=== PATIENT | male | born 1935 | race Caucasian/White ===

== ENCOUNTER → 2016-07-25 | Outpatient (CLI) | payer BC ==
[~2016-07-25] MED LIST: ALL300 PO; METO100T44 PO; OMEG10007 PO; SYN100 PO; [UNRECOGNIZED DRUG - OTHER]
[2016-07-25 12:31] LABS: BASO % 0.5 %; BASO ABS # 0.03 K/uL (0-0.2); COMPLETE YES; HEMATOCRIT 39.9 % (42-52); IG% 0.2 %; LYMPH % 32.2 %; LYMPH ABS # 1.96 K/uL (1.2-3.4); MEAN CELL VOLUME 101.3 fL (80-100); MEAN CORPUSCULAR HGB CONC 32.6 g/dl (32-36); MEAN PLATELET VOLUME 9.8 fL (7.4-10.4); MONO % 6.1 %; PLATELET COUNT 212 K/uL (130-400); RED BLOOD COUNT 3.94 M/uL (4.7-6.1); WHITE BLOOD COUNT 6.09 K/uL (4.8-10.8)
[2016-07-25 13:24] LABS: BLOOD UREA NITROGEN 15 mg/dl (7-18); BUN/CREATININE RATIO 17.3 (10-20); CALCIUM 8.7 mg/dl (8.5-10.1); CARBON DIOXIDE 23 mmol/L (21-32); CHLORIDE 108 mmol/L (98-107); CREATININE 0.89 mg/dl (0.60-1.40); GLUCOSE 136 mg/dl (70-99); POTASSIUM 4.2 mmol/L (3.5-5.1); SODIUM 140 mmol/L (136-145)
[2016-07-25 13:35] LABS: THYROID STIMULATING HORMONE 0.768 uIu/ml (0.300-4.500)
--- NOTE | 2016-08-01 06:58 | CODING QUERY MEDICAL NECESSITY ---
SUPPORTING DIAGNOSIS NEEDED A supporting diagnosis is required for the test/procedure performed on this patient in order for us to be reimbursed by the patient's insurance. Please provide a supporting diagnosis for the following test/procedure listed below next to the test name along with your signature. *If there is no additional diagnosis for this patient that would support the following test/procedure please document that below next to the test/procedure. Test(s)/Procedure(s) that require a supporting diagnosis: * VITAMIN B12 DIAGNOSIS: Provider Signature: Date: Thank you Trinidad Buchanan [employer] Once completed, please kindly fax back to [phone] For questions please call [phone]
== END | disposition home or self-care (01) ==
LOC: C.LAB1850 09:38
PROVIDERS: ATTEND Internal Medicine Geriatric Medicine
DX: I10 Essential (primary) hypertension (principal); I49.5 Sick sinus syndrome; I25.10 Atherosclerotic heart disease of native coronary artery without angina pectoris; D64.9 Anemia, unspecified; I49.3 Ventricular premature depolarization; I70.0 Atherosclerosis of aorta; R31.0 Gross hematuria; N40.0 Benign prostatic hyperplasia without lower urinary tract symptoms; E03.9 Hypothyroidism, unspecified

== ENCOUNTER 2021-06-13 22:38 | Inpatient (IN) ==
[2021-06-13] MEDS ORDERED: SODIUM CHLORIDE 0.9% 250 ML IV PRN (22:55)
[2021-06-13] MEDS ORDERED: PANTOprazole 80 MG in DEXTROSE 5% 100 ML IV STA (22:55)
--- NOTE | 2021-06-13 22:56 | Emergency Department Note ---
Impression & Plan Acute GI bleeding, Anticoagulant long-term use ED Provider Note Name: SUJATHA Mandujano BRITTNI Age: 85 Sex: M Arrives Via: Walk-In Informant: Patient, ED Provider: Hoang Pruett MD Chief Complaint: bloody stool Impression: As per impressions above Medical Decision Makin-year-old gentleman with a history of A. fib/complete heart block for which she is on Eliquis, has an ICD and uses flecainide. He was cardioverted about 3 months ago and has remained in a paced rhythm since. Patient notes a history of a GI bleed about 36 years ago which he was under the impression was due to a hiatal hernia. He is not on any antacids. Patient notes that he had a large bloody bowel movement just prior to arrival and then on arrival. He notes mild abdominal queasiness but no specific pain. He has no recent falls or trauma. Initially his hemoglobin and heart rate and blood pressure are stable. Patient reevaluated several times he has a soft abdomen and is in no distress. Given findings I do not feel he needs to go emergently to the OR. Hospitalist was consulted for further management. Shortly after hospitalist was in to see patient patient started having increasing bloody bowel movements. He was noted become somewhat hypotensive and was given some further fluids. Blood pressure continued to drop and at this point decision to transfuse was made. I discussed the case with hematology who feels given Kcentra makes sense in the situation as does the hospitalist. Patient was given 2000 units of Kcentra. A unit of blood was ordered. Patient was agreeing to transfusion. Hospitalist was back into evaluate patient and plan to transfer to critical care unit. Prior Medical Record and Triage/Nursing Notes reviewed by Me Additional history obtained from chart and Differentials:Diverticulosis, AVM, coagulopathy, colitis, inflammatory bowel disease, malignancy, Mabel-Demarco tear, esophagitis, peptic ulcer disease, variceal bleed, gastritis, epistaxis, fissure, hemorrhoids, as well as other pathologies. Vital Signs: reviewed and remarkable for no significant abnormalities Interventions: nss bolus 1 L IV Labs:Reviewed and remarkable for no significant abnormalities EKG:Per My Interpretation: Indication GI bleed weakness: AV paced at 60 bpm, qtc 374. No Ectopy. No Ischemia. Compared to EKG 3/17/21, no significant changes. Cardiac/Tele Monitoring: Cardiac Monitoring: An Order was placed for continuous cardiac monitoring. The monitor shows a rate of 60 with a paced rhythm. Consults:Dr Tami GRAVES Hospitalist Plan: Disposition:Hospitalization. Condition: Good History of Present Illness:85-year-old gentleman arrives for evaluation of rectal bleeding. Patient notes he was feeling fine all day and then this evening had a large bloody bowel movement. He states he has a feeling of needing to defecate. He did have a bowel movement on arrival which was quite bloody. He notes he feels slightly lightheaded with standing. States his abdomen is somewhat queasy but denies any nausea. He has had no recent vomiting. He denies any recent falls, trauma, injuries. He has a history of a GI bleed from what they reported was his hiatal hernia back in 1984 and has not had any bleeding. He is currently on Eliquis for for the last few months. He did have a cardioversion out of his A. fib in April 2021 and has not had any issues with his A. fib since. He does have a pacemaker due to complete heart block. He states he is currently on flecainide to control his A. fib. Patient denies any headache, neck pain, chest pain, shortness of breath, syncope, back pain, leg swelling, bleeding/other than the bowels, rashes or other signs or symptoms. He has had no recent fevers, chills, runny nose or other illnesses. She is not on any antireflux or GERD medications. Denies anything making the rectal bleeding better or worse. No medications prior to arrival. He did take his out this evening. ROS: See above HPI for pertinent positives & negatives. A total of 10 systems reviewed and were otherwise negative. Past Medical History:See Below Past Surgical History:See Below Family History:See Below Social History:See Below Home Medications:See Below Allergies:nkda Vitals:Blood Pressure: 120/77, Pulse 60, RR 18, T 36.5C, O2 97% on RA Physical Exam: GENERAL: Patient is tired/pale appearing and in mild distress. EYES: No scleral icterus, unremarkable pupils. ENT: Mucous membranes moist, no nasal congestion. NECK: No masses appreciated, nomeningismus, trachea is midline. RESPIRATORY: No dyspnea. Clear to auscultation and equal bilaterally. No wheeze, no rhonchi. CARDIOVASCULAR: Regular rate and rhythm.No murmurs, rubs, gallops appreciated. GASTROINTESTINAL: Abdomen soft, non-tender, no peritonitis.Bowel sounds positive & hyperactive.No masses appreciated. BACK: No midline tenderness, no CVA tenderness EXTREMITIES: Normal motion all extremities, no cyanosis, no edema. NEUROLOGIC: Alert and oriented, no acute motor or sensory deficits, no focal weakness, cranial nerves grossly intact. SKIN: No rash, no jaundice, no diaphoresis. PSYCH: Appropriate GCS: 15 ED Course: Times/Reassessments: Patient stable pleasant in no distress. He is somewhat pale notes feeling slightly better after some IV fluids. Hospitalist then to evaluate. 1230 patient became pale had large GI bleed and was noted be persistently hypotensive. He was given some further fluids and blood pressure did not come up. Decision made to transfuse and give Kcentra. I have personally spent 35 minutes of critical care time in the direct man agement of this patient. Acute GI bleed with development of hypotensive hemorrhagic shock. Requiring reversal of anticoagulation and blood transfusion. This was a life/limb threatening event. This 35 minutes is in excess of all separately billable procedures. 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 CRUZ History of tonsillectomy and adenoidectomy "TONSILS REMOVED 2X" S/P hernia repair Family History Father Cardiac disorder Mother Pneumonia Other No family history of adverse response to anesthesia Denies family history of Ovarian cancer Prostate cancer Breast cancer Lung cancer Colorectal cancer Social History Smoking Status: Never smoker Second Hand Exposure: No; Hx Alcohol Use: Yes Alcohol type: beer Alcohol Intake Frequency: 4 or More x per/Week Hx Substance Use: No Preferred Language: Romanian Communication Ability: Effective Visual Impairment: No Limitations Hearing Ability: Hard of Hearing Milieu Coordinator Required: No Beliefs That Will Affect Care: None marital status: Current Living Situation: Spouse current occupational status: retired Feels Safe at Home: Yes Childhood Exposure to Second-Hand Smoke: No Dental Care, Regularly: Yes Physical Activity Frequency: Daily Seatbelt Use: always Sunscreen Use: No Assistive Devices: Glasses Allergies Allergies Allergy/AdvReac Type Severity Reaction Status Date / Time No Known Allergies Allergy Unknown Verified 05/02/21 09:50 Home Meds Home Medications Medication Instructions Recorded Confirmed cyanocobalamin (vitamin B-12) 1,000 mcg PO DAILY tab 09/11/18 05/02/21 1,000 mcg tablet Previous Rx's Medication Instructions Recorded sildenafil 100 mg tablet 100 mg PO DAILY PRN #10 tab 06/23/20 allopurinol 300 mg tablet See Rx Instructions .ROUTE 11/11/20 .COMPLEX #90 tab metoprolol succinate 100 mg See Rx Instructions .ROUTE 11/11/20 tablet,extended release 24 hr .COMPLEX #135 tab amlodipine 5 mg-valsartan 320 mg 1 tab PO DAILY #90 tab 12/21/20 tablet levothyroxine 112 mcg tablet 112 mcg PO DAILY #90 tab 12/21/20 atorvastatin 10 mg tablet See Rx Instructions .ROUTE 01/31/21 .COMPLEX #90 tab apixaban 5 mg tablet (Eliquis) 5 mg PO BID #60 tab 03/14/21 flecainide 50 mg tablet 50 mg PO Q12H #60 tab 04/13/21 Results & Data (ED) Vital Signs Vital Signs - 24 hr 06/13/21 22:44 06/13/21 23:18 06/14/21 00:00 Temperature 36.5 C Temperature Source Temporal Artery Scan Pulse Rate 96 H Pulse Rate [Right Finger] 60 61 Respiratory Rate 20 18 18 Respiratory Effort / Characteristics Non-Labored Respiratory Depth Normal Blood Pressure 115/69 Blood Pressure [Left Arm] 120/77 117/74 Blood Pressure Mean 84 Blood Pressure Mean [Left Arm] 91 88 Blood Pressure Position Sitting Blood Pressure Position [Left Arm] Lying Pulse Oximetry 95 97 99 Oxygen Delivery Method Room Air Room Air Room Air Sepsis Recent Fever Within 48 Hours No Sepsis New/Unexplained Change in Mental Status N/A Sepsis Action Taken by Nursing No Action Required 06/14/21 00:16 06/14/21 00:30 06/14/21 00:34 Temperature Temperature Source Pulse Rate Pulse Rate [Right Finger] 61 66 65 Respiratory Rate 18 Respiratory Effort / Characteristics Respiratory Depth Blood Pressure Blood Pressure [Left Arm] 114/69 66/49 L 78/48 L Blood Pressure Mean Blood Pressure Mean [Left Arm] 84 54 58 Blood Pressure Position Blood Pressure Position [Left Arm] Pulse Oximetry 99 Oxygen Delivery Method Room Air Sepsis Recent Fever Within 48 Hours Sepsis New/Unexplained Change in Mental Status Sepsis Action Taken by Nursing Laboratory Data Result diagrams: 06/13/21 23:02 06/13/21 23:02 Lab Results 06/13/21 06/13/21 06/13/21 Range/Units 23:02 23:02 23:02 WBC 9.98 (4.8-10.8) K/uL RBC 3.53 L (4.7-6.1) M/uL Hgb 12.2 L (14.0-18.0) g/dL Hct 36.4 L (42-52) % MCV 103.1 H (80-100) fL MCH 34.6 H (25-34) pg MCHC 33.5 (32-36) g/dL RDW Std Deviation 51.1 H (36.4-46.3) fL RDW Coeff of Floyd 13.8 (11.5-14.5) % Plt Count 232 (130-400) K/uL MPV 9.2 (7.4-10.4) fL Immature Gran % (Auto) 0.6 % Neut % (Auto) 53.1 % Lymph % (Auto) 36.3 % Zavala % (Auto) 7.8 % Eos % (Auto) 1.7 % Baso % (Auto) 0.5 % Neut # (Auto) 5.30 (1.4-6.5) K/uL Lymph # (Auto) 3.62 H (1.2-3.4) K/uL Zavala # (Auto) 0.78 H (0.11-0.59) K/uL Eos # (Auto) 0.17 (0-0.5) K/uL Baso # (Auto) 0.05 (0-0.2) K/uL Immature Gran # (Auto) 0.06 H (0.00-0.02) K/uL PT 11.8 (9.0-12.0) Seconds INR 1.1 (0.9-1.1) APTT 25.2 (21.0-31.0) Seconds PTT Ratio 0.9 Sodium (136-145) mmol/L Potassium (3.5-5.1) mmol/L Chloride (98-107) mmol/L Carbon Dioxide (21-32) mmol/L Anion Gap (3-11) BUN (6-23) mg/dl Creatinine (0.6-1.4) mg/dl Est Cr Clr Drug Dosing ml/min Est GFR ( Amer) ml/min Est GFR (Non-Af Amer) ml/min BUN/Creatinine Ratio (10-20) Glucose (70-99(Fasting)) mg/dl Calcium (8.5-10.1) mg/dl Magnesium (1.7-2.4) mg/dl Total Bilirubin (0.2-1.0) mg/dl Direct Bilirubin (0-0.2) mg/dl AST (13-39) U/L ALT (7-52) U/L Alkaline Phosphatase (34-104) U/L Troponin I High Sens (0-20) pg/ml Total Protein (6.0-8.3) gm/dl Albumin (3.4-5.0) gm/dl Lipase (11-82) U/L SARS-CoV-2, RNA, NAAT (NEGATIVE) Blood Type O Positive Antibody Screen NEGATIVE Crossmatch See Detail 06/13/21 06/14/21 Range/Units 23:02 00:10 WBC (4.8-10.8) K/uL RBC (4.7-6.1) M/uL Hgb (14.0-18.0) g/dL Hct (42-52) % MCV (80-100) fL MCH (25-34) pg MCHC (32-36) g/dL RDW Std Deviation (36.4-46.3) fL RDW Coeff of Floyd (11.5-14.5) % Plt Count (130-400) K/uL MPV (7.4-10.4) fL Immature Gran % (Auto) % Neut % (Auto) % Lymph % (Auto) % Zavala % (Auto) % Eos % (Auto) % Baso % (Auto) % Neut # (Auto) (1.4-6.5) K/uL Lymph # (Auto) (1.2-3.4) K/uL Zavala # (Auto) (0.11-0.59) K/uL Eos # (Auto) (0-0.5) K/uL Baso # (Auto) (0-0.2) K/uL Immature Gran # (Auto) (0.00-0.02) K/uL PT (9.0-12.0) Seconds INR (0.9-1.1) APTT (21.0-31.0) Seconds PTT Ratio Sodium 138 (136-145) mmol/L Potassium 4.0 (3.5-5.1) mmol/L Chloride 105 (98-107) mmol/L Carbon Dioxide 28 (21-32) mmol/L Anion Gap 5 (3-11) BUN 19 (6-23) mg/dl Creatinine 1.02 (0.6-1.4) mg/dl Est Cr Clr Drug Dosing 56.7 ml/min Est GFR ( Amer) 78.4 ml/min Est GFR (Non-Af Amer) 67.7 ml/min BUN/Creatinine Ratio 18.6 (10-20) Glucose 134 H (70-99(Fasting)) mg/dl Calcium 9.0 (8.5-10.1) mg/dl Magnesium 2.0 (1.7-2.4) mg/dl Total Bilirubin 0.5 (0.2-1.0) mg/dl Direct Bilirubin 0.1 (0-0.2) mg/dl AST 20 (13-39) U/L ALT 15 (7-52) U/L Alkaline Phosphatase 105 H (34-104) U/L Troponin I High Sens 6.7 (0-20) pg/ml Total Protein 6.7 (6.0-8.3) gm/dl Albumin 3.6 (3.4-5.0) gm/dl Lipase 32 (11-82) U/L SARS-CoV-2, RNA, NAAT NEGATIVE (NEGATIVE) Blood Type Antibody Screen Crossmatch Administered Medications Discontinued Medications Pantoprazole Sodium 80 mg/ (Dextrose) 100 mls @ 400 mls/hr IV ONE STA Stop: 06/13/21 23:09 Last Infusion: 06/14/21 00:09 Dose: 0 mls/hr Documented by: [id number] Admin: 06/13/21 23:40 Dose: 400 mls/hr Documented by: [id number] Sodium Chloride (Nss 1000ml) 1,000 mls @ 999 mls/hr IV .Q1H1M ONE Stop: 06/14/21 00:20 Last Admin: 06/13/21 23:34 Dose: 999 mls/hr Documented by: [id number] Discharge Plan Visit Data Chief Complaint: Rectal Bleed Stated Complaint: BLEEDING IN STOMACH ED Provider: Hoang Pruett Discharge Problem: Acute GI bleeding, Anticoagulant long-term use Forms Stand Alone Forms: [employer] Medical Prescriptions Prescriptions: No Action sildenafil 100 mg tablet 100 mg PO DAILY PRN (Reason: sexual activity) Qty: 10 RF: 0 allopurinol 300 mg tablet See Rx Instructions .ROUTE .COMPLEX Qty: 90 RF: 4 metoprolol succinate 100 mg tablet extended release 24 hr See Rx Instructions .ROUTE .COMPLEX Qty: 135 RF: 4 amlodipine-valsartan 5-320 mg tablet 1 tab PO DAILY Qty: 90 RF: 3 levothyroxine 112 mcg tablet 112 mcg PO DAILY Qty: 90 RF: 3 atorvastatin 10 mg tablet See Rx Instructions .ROUTE .COMPLEX Qty: 90 RF: 3 flecainide 50 mg tablet 50 mg PO Q12H Qty: 60 RF: 2 cyanocobalamin (vitamin B-12) 1,000 mcg tablet 1,000 mcg PO DAILY RF: 0 Eliquis 5 mg tablet 5 mg PO BID Qty: 60 RF: 5 Referrals Referrals: Dylan Christianson DO [Primary Care Provider] -
[2021-06-13 23:19] LABS: Basophils # (auto) 0.05 K/uL (0-0.2); Basophils % (auto) 0.5 %; Eosinophils # (auto) 0.17 K/uL (0-0.5); Eosinophils % (auto) 1.7 %; Hematocrit (blood only) 36.4 % (42-52); Hemoglobin 12.2 g/dL (14.0-18.0); Immature Granulocytes # (auto) 0.06 K/uL (0.00-0.02); Immature Granulocytes % (auto) 0.6 %; Lymphocytes # (auto) 3.62 K/uL (1.2-3.4); Lymphocytes % (auto) 36.3 %; Mean Corpuscular Hemoglobin 34.6 pg (25-34); Mean Corpuscular Hgb Conc 33.5 g/dL (32-36); Mean Corpuscular Volume 103.1 fL (80-100); Mean Platelet Volume 9.2 fL (7.4-10.4); Monocytes # (auto) 0.78 K/uL (0.11-0.59); Monocytes % (auto) 7.8 %; Neutrophils % (auto) 53.1 %; Platelet Count 232 K/uL (130-400); RDW Coefficient of Variation 13.8 % (11.5-14.5); RDW Standard Deviation 51.1 fL (36.4-46.3); Red Blood Count 3.53 M/uL (4.7-6.1); White Blood Count 9.98 K/uL (4.8-10.8)
[2021-06-13] MEDS ORDERED: SODIUM CHLORIDE 0.9% 1000ML 1,000 ML IV ONE (23:20)
[2021-06-13 23:32] LABS: INR 1.1 (0.9-1.1); Partial Thromboplastin Ratio 0.9; Partial Thromboplastin Time 25.2 Seconds (21.0-31.0); Prothrombin Time 11.8 Seconds (9.0-12.0)
[2021-06-13 23:42] LABS: Albumin Level 3.6 gm/dl (3.4-5.0); BUN Creatinine Ratio 18.6 (10-20); Bilirubin Direct 0.1 mg/dl (0-0.2); Bilirubin,Total 0.5 mg/dl (0.2-1.0); Creatinine Clr Calc Pharmacy 56.7 ml/min; Est GFR (African American) 78.4 ml/min; Est GFR (Non-African American) 67.7 ml/min; Total Protein 6.7 gm/dl (6.0-8.3)
[2021-06-14 00:14] LABS: Troponin I High Sensitivity 6.7 pg/ml (0-20)
--- NOTE | 2021-06-14 00:19 | History & Physical Report ---
Date of Service June 14, 2021 Assessment & Plan (1) Acute GI bleeding: Plan: Acute GI bleeding/bright red blood per rectum/symptomatic anemia/hypotension- admitted to the ICU until ranges, need for transfer to [facility]- consult ICU staff continue protonix drip transfuse PRBC's, FFP, platelets per notation reverse eliquis with K-Centra levophed to start if MAP not maintained 60-65 with transfusions (2) Anticoagulant long-term use: Plan: Hold eliquis, reverse with 2000 cc of KCentra (3) Hypothyroidism: Plan: Hold levothyroxine (4) Gout: Plan: hold allopurinol (5) Atrial fibrillation, permanent: Plan: A-fib/HTN- holding eliquis, flecainide, amlodipine (6) Hypertension: Plan: see above (7) Pacemaker: Plan: EKG is A-V paced (8) Hyperlipidemia: Plan: hold atorvastatin History of Present Illness Chief Complaint: The patient presents to the emergency department with complaint of a bloody bowel movement that occurred just prior to arrival. Primary Care Provider: Dylan Christianson DO The patient is an 85-year-old male with past medical history including complete AV block status post pacemaker, CAD, atrial fibrillation, long-term anticoagulant use presently on Eliquis, hypertension, hyperlipidemia, hypothyroidism and gout. Patient reports he had an episode of a bloody bowel movement in 1984, and was told at that time it was related to a hiatal hernia. This evening he had a large bloody bowel movement just prior to arrival to the ED, and while in ED had 4 large bloody bowel movements and acute drop in blood pressure from 110s to a low of 60s to the low 100s. Due to persistence of bleeding, intermittent severe hypotension with mental status changes, and concerns regarding an active bleeding site that would need IR treatment, patient was admitted to the ICU at [facility], [place], until arrangements could be made for transfer to [facility] in [place] Allergies Allergy/AdvReac Type Severity Reaction Status Date / Time No Known Allergies Allergy Unknown Verified 05/02/21 09:50 Home Medications Medication Instructions Recorded Confirmed Type cyanocobalamin (vitamin B-12) 1,000 mcg PO DAILY tab 09/11/18 05/02/21 History 1,000 mcg tablet sildenafil 100 mg tablet 100 mg PO DAILY PRN #10 tab 06/23/20 04/19/21 Rx allopurinol 300 mg tablet See Rx Instructions .ROUTE 11/11/20 05/02/21 Rx .COMPLEX #90 tab metoprolol succinate 100 mg See Rx Instructions .ROUTE 11/11/20 05/02/21 Rx tablet,extended release 24 hr .COMPLEX #135 tab amlodipine 5 mg-valsartan 320 mg 1 tab PO DAILY #90 tab 12/21/20 05/02/21 Rx tablet levothyroxine 112 mcg tablet 112 mcg PO DAILY #90 tab 12/21/20 05/02/21 Rx atorvastatin 10 mg tablet See Rx Instructions .ROUTE 01/31/21 05/02/21 Rx .COMPLEX #90 tab apixaban 5 mg tablet (Eliquis) 5 mg PO BID #60 tab 03/14/21 05/02/21 Rx flecainide 50 mg tablet 50 mg PO Q12H #60 tab 04/13/21 05/02/21 Rx Past Med/Surg History Medical History (Updated 06/13/21 @ 23:50 by Hoang Pruett MD) Aortic atherosclerosis Atrial fibrillation BPH (benign prostatic hyperplasia) Erectile dysfunction Hx of gastric ulcer Hx of gout Hyperlipidemia Hypertension Hypothyroidism Nummular eczema Prediabetes Premature ventricular contractions (PVCs) (VPCs) Sick sinus syndrome S/p Medtronic pacer placement (2002) Surgical History H/O colonoscopy History of cataract surgery RT/LEFT 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 CRUZ History of tonsillectomy and adenoidectomy "TONSILS REMOVED 2X" S/P hernia repair Family History Father Cardiac disorder Mother Pneumonia Other No family history of adverse response to anesthesia Denies family history of Ovarian cancer Prostate cancer Breast cancer Lung cancer Colorectal cancer Social History Smoking Status: Never smoker Second Hand Exposure: No; Hx Alcohol Use: Yes Alcohol type: beer Alcohol Intake Frequency: 4 or More x per/Week Hx Substance Use: No Preferred Language: Sudanese Communication Ability: Effective Visual Impairment: No Limitations Hearing Ability: Hard of Hearing Passenger Coach Driver Required: No Beliefs That Will Affect Care: None marital status: Current Living Situation: Spouse current occupational status: retired Other Information That Helps Us Care for You: No Feels Safe at Home: Yes Safety Concerns: Feels Safe At This Time Childhood Exposure to Second-Hand Smoke: No Dental Care, Regularly: Yes Physical Activity Frequency: Daily Seatbelt Use: always Sunscreen Use: No Assistive Devices: None Review of Systems Review of Systems: The patient denies chest pain, palpitations, cough, lower extremity swelling, sore throat, fevers, chills, sweats, weight change, fatigue, blood in urine, dysuria, urinary frequency or urgency, loss of consciousness, rash, imbalance, focal weakness, numbness or tingling in arms or legs, generalized arthralgias or myalgias, back or neck pain, or night sweats. The review of systems is otherwise negative other than for that already noted above, and at least 10 systems have been reviewed. Physical Exam Physical Exam: The patient is awake, alert and oriented 3, well developed and well nourished, normocephalic and atraumatic, lying in bed and in no acute distress. HEENT--PERRL, EOMI, mucous membranes and oropharynx dry. Neck--supple. No JVD. No bruits. Thyroid normal, trachea midline, no adenopathy. Heart--irregularly irregular no murmurs, rubs or gallops. Lungs--clear bilaterally, no respiratory distress, no accessory muscle use. Abdomen--normal bowel sounds and soft. Nontender Dermatologic--normal skin turgor, normal color, no abnormal lymph nodes, no rash. Neurologic--cranial nerves II through XII grossly intact. Rheumatologic--normal range of motion. Psychiatric--normal affect. Results & Data Results & Data ([facility]) Vital Signs (Past 12 Hours) Vital Signs Temp Pulse Pulse Resp BP BP Pulse Ox 06/14/21 00:16 61 18 114/69 99 06/14/21 00:00 61 18 117/74 99 06/13/21 23:18 60 18 120/77 97 06/13/21 22:44 36.5 C 96 H 20 115/69 95 Laboratory Results Laboratory Results WBC 18.38 K/uL (4.8-10.8) H 06/14/21 03:00 WBC Cancelled 06/14/21 03:00 RBC 3.11 M/uL (4.7-6.1) L 06/14/21 03:00 RBC Cancelled 06/14/21 03:00 Hgb 10.1 g/dL (14.0-18.0) L 06/14/21 03:00 Hgb Cancelled 06/14/21 03:00 Hct 30.5 % (42-52) L 06/14/21 03:00 Hct Cancelled 06/14/21 03:00 MCV 98.1 fL (80-100) 06/14/21 03:00 MCV Cancelled 06/14/21 03:00 MCH 32.5 pg (25-34) 06/14/21 03:00 MCH Cancelled 06/14/21 03:00 MCHC 33.1 g/dL (32-36) 06/14/21 03:00 MCHC Cancelled 06/14/21 03:00 RDW Std Deviation 58.9 fL (36.4-46.3) H 06/14/21 03:00 RDW Std Deviation Cancelled 06/14/21 03:00 RDW Coeff of [place] 16.3 % (11.5-14.5) H 06/14/21 03:00 RDW Coeff of [place] Cancelled 06/14/21 03:00 Plt Count 180 K/uL (130-400) 06/14/21 03:00 Plt Count Cancelled 06/14/21 03:00 MPV 9.8 fL (7.4-10.4) 06/14/21 03:00 MPV Cancelled 06/14/21 03:00 Immature Gran % (Auto) 0.6 % 06/13/21 23:02 Neut % (Auto) 53.1 % 06/13/21 23:02 Lymph % (Auto) 36.3 % 06/13/21 23:02 [place] % (Auto) 7.8 % 06/13/21 23:02 Eos % (Auto) 1.7 % 06/13/21 23:02 Baso % (Auto) 0.5 % 06/13/21 23:02 Neut # (Auto) 5.30 K/uL (1.4-6.5) 06/13/21 23:02 Lymph # (Auto) 3.62 K/uL (1.2-3.4) H 06/13/21 23:02 [place] # (Auto) 0.78 K/uL (0.11-0.59) H 06/13/21 23:02 Eos # (Auto) 0.17 K/uL (0-0.5) 06/13/21 23:02 Baso # (Auto) 0.05 K/uL (0-0.2) 06/13/21 23:02 Immature Gran # (Auto) 0.06 K/uL (0.00-0.02) H 06/13/21 23:02 Absolute Nucleated RBC Cancelled 06/14/21 03:00 Nucleated RBC % (auto) Cancelled 06/14/21 03:00 Platelet Estimate Cancelled 06/14/21 03:00 PT 11.8 Seconds (9.0-12.0) 06/14/21 02:59 INR 1.1 (0.9-1.1) 06/14/21 02:59 APTT 21.0 Seconds (21.0-31.0) 06/14/21 02:59 PTT Ratio 0.8 06/14/21 02:59 Fibrinogen 195 mg/dl (184-400) 06/14/21 02:59 VBG pH 7.25 (7.36-7.41) L 06/14/21 03:01 VBG pCO2 49 mmHg (38-50) 06/14/21 03:01 VBG pO2 28 mmHg 06/14/21 03:01 VBG HCO3 21 mmol/L 06/14/21 03:01 VBG O2 Saturation < 60.0 % 06/14/21 03:01 VBG Base Excess -6.6 mEq/L 06/14/21 03:01 Barometric Pressure 739.0 mm/Hg 06/14/21 03:01 Sodium 139 mmol/L (136-145) 06/14/21 02:59 Potassium 4.5 mmol/L (3.5-5.1) 06/14/21 02:59 Chloride 110 mmol/L (98-107) H 06/14/21 02:59 Carbon Dioxide 21 mmol/L (21-32) 06/14/21 02:59 Anion Gap 8 (3-11) 06/14/21 02:59 BUN 20 mg/dl (6-23) 06/14/21 02:59 Creatinine 0.83 mg/dl (0.6-1.4) 06/14/21 02:59 Est Cr Clr Drug Dosing 69.6 ml/min 06/14/21 02:59 Est GFR ( Amer) 94.3 ml/min 06/14/21 02:59 Est GFR (Non-Af Amer) 81.4 ml/min 06/14/21 02:59 BUN/Creatinine Ratio 24.1 (10-20) H 06/14/21 02:59 Glucose 140 mg/dl (70-99(Fasting)) H 06/14/21 02:59 Calcium 7.5 mg/dl (8.5-10.1) L 06/14/21 02:59 Ionized Calcium 0.97 mmol/L (1.12-1.32) L 06/14/21 02:59 Magnesium 2.0 mg/dl (1.7-2.4) 06/13/21 23:02 Total Bilirubin 0.5 mg/dl (0.2-1.0) 06/13/21 23:02 Direct Bilirubin 0.1 mg/dl (0-0.2) 06/13/21 23:02 AST 20 U/L (13-39) 06/13/21 23:02 ALT 15 U/L (7-52) 06/13/21 23:02 Alkaline Phosphatase 105 U/L (34-104) H 06/13/21 23:02 Troponin I High Sens 6.7 pg/ml (0-20) 06/13/21 23:02 Total Protein 6.7 gm/dl (6.0-8.3) 06/13/21 23:02 Albumin 3.6 gm/dl (3.4-5.0) 06/13/21 23:02 Lipase 32 U/L (11-82) 06/13/21 23:02 Urine Color Yellow 06/14/21 03:40 Urine Appearance Cloudy (Clear) A 06/14/21 03:40 Urine pH 6.5 (4.5-7.5) 06/14/21 03:40 Ur Specific [place] 1.032 (1.000-1.030) H 06/14/21 03:40 Urine Protein Negative (Negative) 06/14/21 03:40 Urine Glucose (UA) Negative (Negative) 06/14/21 03:40 Urine Ketones Negative (Negative) 06/14/21 03:40 Urine Blood Trace (Negative) H 06/14/21 03:40 Urine Nitrite Positive (Negative) A 06/14/21 03:40 Urine Bilirubin Negative (Negative) 06/14/21 03:40 Urine Urobilinogen Negative (Negative) 06/14/21 03:40 Ur Leukocyte Esterase 2+ (Negative) H 06/14/21 03:40 Urine WBC (Auto) >30 /hpf (0-5) H 06/14/21 03:40 Urine RBC (Auto) 0-4 /hpf (0-4) 06/14/21 03:40 U Hyaline Cast (Auto) 1-5 /lpf (0-5) 06/14/21 03:40 U Epithel Cells (Auto) 0-5 /lpf (0-5) 06/14/21 03:40 Urine Bacteria (Auto) 3+ (Negative) H 06/14/21 03:40 Nasal Screen MRSA (PCR) Negative (Negative) 06/14/21 02:20 SARS-CoV-2, RNA, NAAT NEGATIVE (NEGATIVE) 06/14/21 00:10 Blood Type O Positive 06/13/21 23:02 Antibody Screen NEGATIVE 06/13/21 23:02 Crossmatch See Detail 06/13/21 23:02 Code Status & VTE Plan Code Status Full code VTE Prophylaxis Plan VTE Prophylaxis will be ordered: Yes Critical Care Time 45 minutes PG Care Time/CCT Total # of Minutes Spent Total Time Spent with Patient: Total time spent is greater than 50% in coordination of care (as documented) at patient's floor/unit and/or counseling patient: Coding Level of Care Code 03776 Initial Inpt Care Lvl 3 Diagnoses Acute GI bleeding K92.2 Anticoagulant long-term use Z79.01 Hypothyroidism E03.9 Gout M10.9 Atrial fibrillation, permanent I48.21 Hypertension I10 Hypertension type: primary hypertension Pacemaker Z95.0 Hyperlipidemia E78.5 (1) Hypertension Hypertension type: primary hypertension Qualified Code(s): I10 - Essential (primary) hypertension
[2021-06-14] MEDS ORDERED: PROTHROMBIN COMP CONC- KCENTRA 2,000 UNITS in SYRINGE 0 ML IV STA (00:37)
[2021-06-14] MEDS ORDERED: SODIUM CHLORIDE 0.9% 250 ML IV PRN ×2 (00:37→00:55)
[2021-06-14] MEDS ORDERED: DC ALL ANTICOAGULANTS ONE (00:37)
[2021-06-14] MEDS ORDERED: SODIUM CHLORIDE 0.9% 1000ML 1,000 ML IV ONE (01:09)
--- NOTE | 2021-06-14 01:33 | Critical Care Consultation ---
Date of Consultation June 14, 2021 Assessment & Plan (1) Acute GI bleeding: U CONSULT NOTE FORMAT: Reason Critically Ill: Acute GI bleed, which appears like it is lower in nature resulting in hemodynamic instability. Patient states that this started around 10pm and he has had 2 bowel movements at home that were bright red and he is unsure if it has any clots in it. He had an additional 2 bowel movements since being in the EMD, where he remained initially hemodynamically stable with BP in the 120s and HR in the 60s. He had another BM around midnight that was bloody, and was associated with hypotension to the 70s. The patient is on Apixaban 5mg BID for persistent Afib and his last dose of this was this afternoon he thinks around 1700. Following his hypotension episode the patient was started with crystalloid bolus, which did bring his BP up to 110 with MAPS 68, he was reversed with 4 factor PCC, and 1 unit of PRBC was being administered. The patient is warm with good peripheral pulses and he is without encephalopathy. Following 1 unit PRBC the patient had another large bloody bowl movement with few clots, he became hypotensive again to the 70s. MTP was initiated. CTAP obtained and patient brought to ICU to continue resuscitation. The primary service was notified to start transfer process for likely IR need. His HGB dropped to 8.7 from 12.2 on admission. Fibrinogen and VBG are pending. The patient, denies ETOH use/abuse, his LFTs are normal, INR is 1.1, no history of cirrhosis. He had a colonoscopy 2009 which showed diverticulosis and no polyps. Continue with PRBC followed by Plasma. Will check HGB now and Fibrinogen. Platelets stable at 232 and is not on any other platelet inhibitors. Neuro - [facility] ICU: Negative- he is briskly awake and appropriate. - avoid benzos Cardiac - hypotension, acute blood loss, AFIB, HTN, HLD, CAD, history of Pace Maker insertion for heart block, - Hypotension in the setting of acute blood loss from GI source unspecified but presumed lower - Continue resuscitation with PRBC, FFP, Platelets, - goal 1:1:1 if needed- goal would be 4:4:1 with 1GM calcium - Fibrinogen 184 - Shock index blunted with Beta-zaira likely - follow MAPS and organ perfusion - Maintain euthermic and reverse acidosis - VBG pending - LEVOphed if needed - He is without Chest pain or symptoms - He has history of cardiac calcification with presumed CAD - EF 50-55% with MR and mVP- mild - Pacemaker- DDDR low rate 60 with upper tracking 130- was placed for high degree heart-block - Hold antihypertensives - continue statin - Hold BB for now - Continue with Flecanide - Diurese when able and if needed Respiratory - No acute process at this time - If continues to bleed with hemodynamic instability or requiring large volume resuscitation may need intubated - patient is full code GI - GI Bleed unspecified source- presumed lower with consistency - He is without abdominal pain or discomfort, abdomen is soft, no n/v - NGT if needed - CTA of abdomen and pelvis- if acute bleed identified consider transfer to facility with IR - GI consulted- spoke with Dr. Arzola- reviewed images no identifiable source- if able to transfer agrees as long as it is in reasonable time-frame as well as remaining hemodynamically stable - GS consulted- spoke with Dr. Alcantara- defers to GI at this time and identify where bleeding. - Patient is accepted to [facility] presby Dr. Cobos via air to ICU- awaiting bed assignment and time-frame- as above if not within few hours- will notify GI- - Appreciate GI Dr. Farrell assistance. - If rebleeds and stays in house- attempt to get arterial venous CT scan with 3- d rendering as hemodynamics assist RENAL/LYTES - No acute needs- - BUN not elevated - replete calcium 1 GM - No acute needs - [place]una to gravity ENDO - Pre-diabetes - ICU hyperglycemia protocol Goal <180mg/dl HEME - acute blood loss - likely anemic at this time secondary to acuteness of bleed- 12.2 to 8.7 in 3.5 hours with fibrinogen 184 - transfuse to hemodynamic stability - HGB, FFP, Platelet now- 4:4:1 - 1GM calcium - hold on cryo ID - No history of cirrhosis and without ETHO abuse- no indication at this time for abx - await CTA of abdomen and pelvis assess for any acute abdominal infective process LINES/IV ACCESS - - PIV- 18 G x2 - [place] Continue use of these lines DVT PROPHYLAXIS - - SCDS DISPO- Critically Ill with hemodynamic instability in the setting of GI bleed. I have personally spent [90] minutes of critical care time in the direct management of this patient. This is a life/limb threatening event. This includes time spent evaluating patient, direct bedside care, chart review, placing orders, interpretation of diagnostic studies, discussion with consultants, patient, and family members, as well as other required patient management karisi crys. This time is exclusive of all separately billable procedures, and teaching time and separate from and in addition to any other critical care service time. Thank you for allowing us to participate in the care of this patient. Please refer to my attending physician's documentation for any further recommendations. (2) Anticoagulant long-term use: (3) Atrioventricular block, complete: (4) Hypothyroidism: (5) Atrial fibrillation, persistent: (6) Hypertension: (7) Aortic atherosclerosis: History of Present Illness Reason for Consultation: GI bleed Requesting Physician: Ang Stearns Attending Physician: Ang Srinivasan History of Present Illness 85 YOM with one day history of: GI Bleed in the setting of apixaban use for Afib. Continues with BRB per rectum with minimal clots- originally arrived hemodynamically stable and then progressed to continued oozing of blood with hypotension. Will continue with resuscitation and pend transfer- CTA of the abdomen and Pelvis pending for evaluation of active bleeding identified. Allergies Allergy/AdvReac Type Severity Reaction Status Date / Time No Known Allergies Allergy Unknown Verified 05/02/21 09:50 Home Medications Medication Instructions Recorded Confirmed Type cyanocobalamin (vitamin B-12) 1,000 mcg PO DAILY tab 09/11/18 05/02/21 History 1,000 mcg tablet sildenafil 100 mg tablet 100 mg PO DAILY PRN #10 tab 06/23/20 04/19/21 Rx allopurinol 300 mg tablet See Rx Instructions .ROUTE 11/11/20 05/02/21 Rx .COMPLEX #90 tab metoprolol succinate 100 mg See Rx Instructions .ROUTE 11/11/20 05/02/21 Rx tablet,extended release 24 hr .COMPLEX #135 tab amlodipine 5 mg-valsartan 320 mg 1 tab PO DAILY #90 tab 12/21/20 05/02/21 Rx tablet levothyroxine 112 mcg tablet 112 mcg PO DAILY #90 tab 12/21/20 05/02/21 Rx atorvastatin 10 mg tablet See Rx Instructions .ROUTE 01/31/21 05/02/21 Rx .COMPLEX #90 tab apixaban 5 mg tablet (Eliquis) 5 mg PO BID #60 tab 03/14/21 05/02/21 Rx flecainide 50 mg tablet 50 mg PO Q12H #60 tab 04/13/21 05/02/21 Rx Patient History Medical History (Updated 06/13/21 @ 23:50 by Hoang Pruett MD) Aortic atherosclerosis Atrial fibrillation BPH (benign prostatic hyperplasia) Erectile dysfunction Hx of gastric ulcer Hx of gout Hyperlipidemia Hypertension Hypothyroidism Nummular eczema Prediabetes Premature ventricular contractions (PVCs) (VPCs) Sick sinus syndrome S/p Medtronic pacer placement (2002) Surgical History H/O colonoscopy History of cataract surgery RT/LEFT 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 CRUZ History of tonsillectomy and adenoidectomy "TONSILS REMOVED 2X" S/P hernia repair Family History Father Cardiac disorder Mother Pneumonia Other No family history of adverse response to anesthesia Denies family history of Ovarian cancer Prostate cancer Breast cancer Lung cancer Colorectal cancer Social History Smoking Status: Never smoker Second Hand Exposure: No; Hx Alcohol Use: Yes Alcohol type: beer Alcohol Intake Frequency: 4 or More x per/Week Hx Substance Use: No Preferred Language: Macedonian Communication Ability: Effective Visual Impairment: No Limitations Hearing Ability: Hard of Hearing Weed Controller Required: No Beliefs That Will Affect Care: None marital status: Current Living Situation: Spouse current occupational status: retired Other Information That Helps Us Care for You: No Feels Safe at Home: Yes Safety Concerns: Feels Safe At This Time Childhood Exposure to Second-Hand Smoke: No Dental Care, Regularly: Yes Physical Activity Frequency: Daily Seatbelt Use: always Sunscreen Use: No Assistive Devices: None Review of Systems Review of Systems: REVIEW OF SYSTEMS: Constitutional: No fever, sweats or chills Eyes: No diplopia, no worsening or blurred vision ENT: normal hearing, no trouble swallowing Respiratory: No cough, sputum, dyspnea at rest or on exertion Cardiovascular: No chest pain, tightness or palpitations Abdomen: (+) blood from rectum, No pain, nausea, vomiting, diarrhea or constipation Musculoskeletal: No joint pain, calf pain, swelling Neurologic: No weakness, numbness/tingling, or balance problems Psychiatric: No anxiety or depression Skin: No rash or itch Physical Exam Physical Exam: PHYSICAL EXAM: General: awake, alert, no apparent distress Head: Normocephalic, atraumatic ENT: PERRL, EOMI, no pharyngeal exudate, mucous membranes moist Neuro: AAO x 3, speech clear and appropriate, strength intact bilaterally 5/5, sensation intact and equal all extremities and dermatomes, no pronator drift Chest: equal rise and fall of the chest, no accessory muscle use, no heaves or thrills, Clear to auscultation, on room air, Cardiac: irregular rate and rhythm, telemetry reviewed- Vpace afib, skin warm dry, cap refill <3 seconds, peripheral pulses +2 no JVD, grade I systolic murmur, no edema GI: NABS x 4 quadrants, soft, nontender to palpation, no rebound, guarding or tenderness, blood per rectum, continued oozing with no clots and is large a min when he has BM : Spontaneously voiding, no pain, no CVA tenderness, Extremities: Normal inspection, no peripheral edema or erythema, calfs nontender to palpation Psych: Normal mood and affect Skin: no rash or erythema Results & Data Results & Data ([facility]) Vital Signs (Past 12 Hours) Vital Signs Temp Pulse Pulse Resp BP BP Pulse Ox 06/14/21 00:57 36.5 C 61 16 109/65 98 06/14/21 00:34 65 78/48 L 06/14/21 00:30 66 66/49 L 06/14/21 00:16 61 18 114/69 99 06/14/21 00:00 61 18 117/74 99 06/13/21 23:18 60 18 120/77 97 06/13/21 22:44 36.5 C 96 H 20 115/69 95 Laboratory Results Abnormal lab results 06/13/21 06/13/21 06/13/21 Range/Units 23:02 23:02 23:02 WBC (4.8-10.8) K/uL RBC 3.53 L (4.7-6.1) M/uL Hgb 12.2 L (14.0-18.0) g/dL Hct 36.4 L (42-52) % MCV 103.1 H (80-100) fL MCH 34.6 H (25-34) pg RDW Std Deviation 51.1 H (36.4-46.3) fL RDW Coeff of Floyd (11.5-14.5) % Lymph # (Auto) 3.62 H (1.2-3.4) K/uL Bee # (Auto) 0.78 H (0.11-0.59) K/uL Immature Gran # (Auto) 0.06 H (0.00-0.02) K/uL Glucose 134 H (70-99(Fasting)) mg/dl Alkaline Phosphatase 105 H (34-104) U/L Crossmatch See Detail 06/14/21 06/14/21 Range/Units 01:24 03:00 WBC 18.38 H (4.8-10.8) K/uL RBC 3.11 L (4.7-6.1) M/uL Hgb 8.7 L D 10.1 L (14.0-18.0) g/dL Hct 30.5 L (42-52) % MCV (80-100) fL MCH (25-34) pg RDW Std Deviation 58.9 H (36.4-46.3) fL RDW Coeff of Floyd 16.3 H (11.5-14.5) % Lymph # (Auto) (1.2-3.4) K/uL Bee # (Auto) (0.11-0.59) K/uL Immature Gran # (Auto) (0.00-0.02) K/uL Glucose (70-99(Fasting)) mg/dl Alkaline Phosphatase (34-104) U/L Crossmatch Medications Administered Discontinued Medications Pantoprazole Sodium 80 mg/ (Dextrose) 100 mls @ 400 mls/hr IV ONE STA Stop: 06/13/21 23:09 Last Infusion: 06/14/21 00:09 Dose: 0 mls/hr Documented by: [id number] Admin: 06/13/21 23:40 Dose: 400 mls/hr Documented by: [id number] Sodium Chloride (Nss 1000ml) 1,000 mls @ 999 mls/hr IV .Q1H1M ONE Stop: 06/14/21 00:20 Last Infusion: 06/14/21 00:35 Dose: 0 mls/hr Documented by: [id number] Admin: 06/13/21 23:34 Dose: 999 mls/hr Documented by: [id number] Prothrombin Complex Concent ( (Human) 2,000 units/ Syringe) 80 mls @ 10 mls/min IV NOW STA; Protocol Stop: 06/14/21 00:44 Last Admin: 06/14/21 00:54 Dose: 10 mls/min Documented by: [id number] Sodium Chloride (Nss 1000ml) 1,000 mls @ 999 mls/hr IV .Q1H1M ONE Stop: 06/14/21 02:09 Last Admin: 06/14/21 00:35 Dose: 999 mls/hr Documented by: [id number] Ioversol (Optiray 320 125ml) 125 ml IV ONCE ONE Stop: 06/14/21 02:15 Last Admin: 06/14/21 02:14 Dose: 118 ml Documented by: [id number] Home Medications cyanocobalamin (vitamin B-12) 1,000 mcg tablet 1,000 mcg PO DAILY tab 09/11/18 [History Confirmed 05/02/21] sildenafil 100 mg tablet 100 mg PO DAILY PRN #10 tab 06/23/20 [Rx Confirmed 04/19/21] allopurinol 300 mg tablet See Rx Instructions .ROUTE .COMPLEX #90 tab 11/11/20 [Rx Confirmed 05/02/21] metoprolol succinate 100 mg tablet,extended release 24 hr See Rx Instructions .ROUTE .COMPLEX #135 tab 11/11/20 [Rx Confirmed 05/02/21] amlodipine 5 mg-valsartan 320 mg tablet 1 tab PO DAILY #90 tab 12/21/20 [Rx Confirmed 05/02/21] levothyroxine 112 mcg tablet 112 mcg PO DAILY #90 tab 12/21/20 [Rx Confirmed 05/02/21] atorvastatin 10 mg tablet See Rx Instructions .ROUTE .COMPLEX #90 tab 01/31/21 [Rx Confirmed 05/02/21] apixaban 5 mg tablet (Eliquis) 5 mg PO BID #60 tab 03/14/21 [Rx Confirmed 05/02/21] flecainide 50 mg tablet 50 mg PO Q12H #60 tab 04/13/21 [Rx Confirmed 05/02/21] Active Medications Acetaminophen (Acetaminophen 325 Mg Tab) 650 mg PO Q4H PRN PRN Reason: Pain or Fever Stop: 07/14/21 02:31 Sodium Chloride (Nss) 250 mls @ 15 mls/hr IV .[id number] PRN PRN Reason: For Transfusion Stop: 06/14/21 10:37 Sodium Chloride (Nss) 250 mls @ 15 mls/hr IV .[id number] PRN PRN Reason: For Transfusion Stop: 06/14/21 10:55 Sodium Chloride (Nss 1000ml) 1,000 mls @ 50 mls/hr IV .Q20H TIMMY Stop: 07/14/21 01:59 Norepinephrine Bitartrate (Levophed/D5w) 8 mg in 508 mls @ 14.345 mls/hr IV .Q24H TIMMY; Protocol Stop: 07/14/21 01:59 Pantoprazole Sodium 40 mg/ (Syringe) 10 mls @ 5 mls/min IV DAILY@1100 TIMMY Stop: 07/14/21 10:59 Miscellaneous (Icu Protocol For Hyperglycemia) 1 ea N/A PRN PRN; Protocol PRN Reason: Hyperglycemia Protocol Stop: 06/16/21 02:31 Ondansetron HCl (Ondansetron Inj 2 Mg/Ml 2 Ml Vial) 4 mg IV Q6H PRN PRN Reason: Nausea Stop: 07/14/21 02:31 Coding Level of Care Code Critical Care 1st 30-74 mins Diagnoses Acute GI bleeding K92.2 Anticoagulant long-term use Z79.01 Atrioventricular block, complete I44.2 Hypothyroidism E03.9 Atrial fibrillation, persistent I48.19 Hypertension I10 Hypertension type: primary hypertension Aortic atherosclerosis I70.0 (1) Hypertension Hypertension type: primary hypertension Qualified Code(s): I10 - Essential (primary) hypertension
[2021-06-14] MEDS ORDERED: STAT IV Infusion **Titration per Protocol STA (01:49)
[2021-06-14] MEDS ORDERED: SODIUM CHLORIDE 0.9% 1000ML 1,000 ML IV SCH (02:00)
[2021-06-14] MEDS ORDERED: NOREPINEPHRINE/D5W 8 MG/508 ML BAG IV SCH (02:00)
[2021-06-14] MEDS ORDERED: OPTIRAY 320 125ml IV ONE (02:14)
[2021-06-14] MEDS ORDERED: ONDANSETRON INJ 2 MG/ML 2 ML VIAL IV PRN (02:32)
[2021-06-14] MEDS ORDERED: ACETAMINOPHEN 325 MG TAB PO PRN (02:32)
[2021-06-14] MEDS ORDERED: ICU PROTOCOL FOR HYPERGLYCEMIA PRN (02:32)
[2021-06-14 03:17] LABS: Hematocrit (blood only) 30.5 % (42-52); Hemoglobin 10.1 g/dL (14.0-18.0); Mean Corpuscular Hemoglobin 32.5 pg (25-34); Mean Corpuscular Hgb Conc 33.1 g/dL (32-36); Mean Corpuscular Volume 98.1 fL (80-100); Mean Platelet Volume 9.8 fL (7.4-10.4); Platelet Count 180 K/uL (130-400); RDW Coefficient of Variation 16.3 % (11.5-14.5); RDW Standard Deviation 58.9 fL (36.4-46.3); Red Blood Count 3.11 M/uL (4.7-6.1); White Blood Count 18.38 K/uL (4.8-10.8)
[2021-06-14 03:18] LABS: Fibrinogen 195 mg/dl (184-400); INR 1.1 (0.9-1.1); Partial Thromboplastin Ratio 0.8; Prothrombin Time 11.8 Seconds (9.0-12.0)
[2021-06-14 03:20] LABS: Base Excess VBG -6.6 mEq/L; HCO3 VBG 21 mmol/L; PCO2 VBG 49 mmHg (38-50); PO2 VBG 28 mmHg; pH VBG 7.25 (7.36-7.41)
[2021-06-14 03:23] LABS: Fibrinogen 182 mg/dl (184-400)
[2021-06-14 03:24] LABS: Oxygen Saturation VBG < 60.0 %
[2021-06-14 03:28] LABS: BUN Creatinine Ratio 24.1 (10-20); Calcium 7.5 mg/dl (8.5-10.1); Creatinine Clr Calc Pharmacy 69.6 ml/min; Est GFR (African American) 94.3 ml/min; Est GFR (Non-African American) 81.4 ml/min; Potassium 4.5 mmol/L (3.5-5.1)
[2021-06-14] MEDS ORDERED: STAT IV STA (03:48)
[2021-06-14 04:05] LABS: Appearance Urine Cloudy (Clear); Bacteria Urine Automated 3+ (Negative); Bilirubin Urine Negative (Negative); Blood Urine Trace (Negative); Color Urine Yellow; Epithelial Cell Urine Auto 0-5 /lpf (0-5); Glucose Urine UA Negative (Negative); Ketones Urine Negative (Negative); Leukocyte Esterase Urine 2+ (Negative); Nitrite Urine Positive (Negative); Protein Urine Negative (Negative); RBC Urine Automated 0-4 /hpf (0-4); Specific Gravity Urine 1.032 (1.000-1.030); Urobilinogen Urine Negative (Negative); WBC Urine Automated >30 /hpf (0-5); pH Urine 6.5 (4.5-7.5)
[2021-06-14] MEDS ORDERED: CALCIUM GLUCONATE 10% 1,000 MG in DEXTROSE 5% 50 ML IV ONE (04:15)
[2021-06-14] MEDS ORDERED: THIAMINE HCL 100 MG in SYRINGE 9 ML IV STA (04:46)
--- NOTE | 2021-06-14 04:48 | Discharge Summary ---
Date of Service June 14, 2021 Admission HPI Per Admitting Provider 1 day history of Bloody bowelmovments starting around 2200 06/13/21. Patient was hemodyanmicall stable with stable hgb on presentation to the EMD. During admission process, patient had a large BRB bowel movement associated with hypotension to the 70s SBP. HE was started with crystalloid bolus, reversed his anticoagulation with PCC, and PRBC started. Critical Care was consulted for admission. Patient continued to have large bloody bowel movements with hypotension, MTP was initiated and resuscitated. He was take to the ICU following CTA of abdomen and Pelvis, his HGB dropped 4 points in approx 3 hours. He received 4 PRBC, 4FFP, 1 Platelet and 1GM calcium. Request for transfer to tertiary care center where IR is available secondary to brisk amount of continued bleeding and heodynamic instability. Admission Exam (Per Admitting) Constitutional Same as admission Discharge Data Consultations 06/13/21 23:43 ED Decision to Admit Stat 06/14/21 02:32 Consult Gastroenterology Routine Consult Data Communications Engineer Routine 06/14/21 03:56 Consult Health Information Management Stat Hospital Course (1) Acute GI bleeding: U CONSULT NOTE FORMAT: Reason Critically Ill: Acute GI bleed, which appears like it is lower in nature resulting in hemodynamic instability. Patient states that this started around 10pm and he has had 2 bowel movements at home that were bright red and he is unsure if it has any clots in it. He had an additional 2 bowel movements since being in the EMD, where he remained initially hemodynamically stable with BP in the 120s and HR in the 60s. He had another BM around midnight that was bloody, and was associated with hypotension to the 70s. The patient is on Apixaban 5mg BID for persistent Afib and his last dose of this was this afternoon he thinks around 1700. Following his hypotension episode the patient was started with crystalloid bolus, which did bring his BP up to 110 with MAPS 68, he was reversed with 4 factor PCC, and 1 unit of PRBC was being administered. The patient is warm with good peripheral pulses and he is without encephalopathy. Following 1 unit PRBC the patient had another large bloody bowl movement with few clots, he became hypotensive again to the 70s. MTP was initiated. CTAP obtained and patient brought to ICU to continue resuscitation. The primary service was notified to start transfer process for likely IR need. His HGB dropped to 8.7 from 12.2 on admission. Fibrinogen and VBG are pending. The patient, denies ETOH use/abuse, his LFTs are normal, INR is 1.1, no history of cirrhosis. He had a colonoscopy 2009 which showed diverticulosis and no polyps. Continue with PRBC followed by Plasma. Will check HGB now and Fibrinogen. Platelets stable at 232 and is not on any other platelet inhibitors . Neuro - [facility] ICU: Negative- he is briskly awake and appropriate. - avoid benzos Cardiac - hypotension, acute blood loss, AFIB, HTN, HLD, CAD, history of Pace Maker insertion for heart block, - Hypotension in the setting of acute blood loss from GI source unspecified but presumed lower - Continue resuscitation with PRBC, FFP, Platelets, - goal 1:1:1 if needed- goal would be 4:4:1 with 1GM calcium - Fibrinogen 184 - Shock index blunted with Beta-zaira likely - follow MAPS and organ perfusion - Maintain euthermic and reverse acidosis - VBG pending - LEVOphed if needed - He is without Chest pain or symptoms - He has history of cardiac calcification with presumed CAD - EF 50-55% with MR and mVP- mild - Pacemaker- DDDR low rate 60 with upper tracking 130- was placed for high degree heart-block - Hold antihypertensives - continue statin - Hold BB for now - Continue with Flecanide - Diurese when able and if needed Respiratory - No acute process at this time - If continues to bleed with hemodynamic instability or requiring large volume resuscitation may need intubated - patient is full code GI - GI Bleed unspecified source- presumed lower with consistency - He is without abdominal pain or discomfort, abdomen is soft, no n/v - NGT if needed - CTA of abdomen and pelvis- if acute bleed identified consider transfer to facility with IR - GI consulted- spoke with Dr. Arzola- reviewed images no identifiable source- if able to transfer agrees as long as it is in reasonable time-frame as well as remaining hemodynamically stable - GS consulted- spoke with Dr. Alcantara- defers to GI at this time and identify where bleeding. - Patient is accepted to [facility] presby Dr. Cobos via air to ICU- awaiting bed assignment and time-frame- as above if not within few hours- will notify GI- - Appreciate GI Dr. Farrell assistance. - If rebleeds and stays in house- attempt to get arterial venous CT scan with 3- d rendering as hemodynamics assist RENAL/LYTES - No acute needs- - BUN not elevated - replete calcium 1 GM - No acute needs - [place] to gravity ENDO - Pre-diabetes - ICU hyperglycemia protocol Goal <180mg/dl HEME - acute blood loss - likely anemic at this time secondary to acuteness of bleed- 12.2 to 8.7 in 3.5 hours with fibrinogen 184 - transfuse to hemodynamic stability - HGB, FFP, Platelet now- 4:4:1 - 1GM calcium - hold on cryo ID - No history of cirrhosis and without ETHO abuse- no indication at this time for abx - await CTA of abdomen and pelvis assess for any acute abdominal infective process LINES/IV ACCESS - - PIV- 18 G x2 - [place] Continue use of these lines DVT PROPHYLAXIS - - SCDS DISPO- Critically Ill with hemodynamic instability in the setting of GI bleed. I have personally spent [90] minutes of critical care time in the direct management of this patient. This is a life/limb threatening event. This includes time spent evaluating patient, direct bedside care, chart review, placing orders, interpretation of diagnostic studies, discussion with consultants, patient, and family members, as well as other required patient management activities. This time is exclusive of all separately billable procedures, and teaching time and separate from and in addition to any other critical care service time. Thank you for allowing us to participate in the care of this patient. Please refer to my attending physician's documentation for any further recommendations. (2) Anticoagulant long-term use: (3) Atrioventricular block, complete: (4) Hypothyroidism: (5) Atrial fibrillation, persistent: (6) Hypertension: (7) Aortic atherosclerosis: Coding Level of Care Code D/C DAY MANAGEMENT >30 MINS Diagnoses Acute GI bleeding K92.2 Anticoagulant long-term use Z79.01 Atrioventricular block, complete I44.2 Hypothyroidism E03.9 Atrial fibrillation, persistent I48.19 Hypertension I10 Hypertension type: primary hypertension Aortic atherosclerosis I70.0
[2021-06-14 05:01] LABS: Base Excess VBG -3.9 mEq/L; Oxygen Saturation VBG 69.5 %; pH VBG 7.35 (7.36-7.41)
[2021-06-14 05:11] LABS: BUN Creatinine Ratio 27.5 (10-20); Calcium 8.1 mg/dl (8.5-10.1); Creatinine Clr Calc Pharmacy 72.2 ml/min; Est GFR (African American) 95.7 ml/min; Est GFR (Non-African American) 82.6 ml/min; Magnesium 1.7 mg/dl (1.7-2.4); Phosphorus 2.9 mg/dl (2.5-4.9)
[2021-06-14 05:18] LABS: Hematocrit (blood only) 31.4 % (42-52); Hemoglobin 10.6 g/dL (14.0-18.0); Mean Corpuscular Hemoglobin 31.5 pg (25-34); Mean Corpuscular Hgb Conc 33.8 g/dL (32-36); Mean Corpuscular Volume 93.5 fL (80-100); Mean Platelet Volume 9.3 fL (7.4-10.4); Platelet Count 177 K/uL (130-400); RDW Coefficient of Variation 16.9 % (11.5-14.5); RDW Standard Deviation 57.3 fL (36.4-46.3); Red Blood Count 3.36 M/uL (4.7-6.1); White Blood Count 15.91 K/uL (4.8-10.8)
[2021-06-14 05:59] LABS: Basophils # (auto) 0.02 K/uL (0-0.2); Basophils % (auto) 0.1 %; Echinocytes 1+; Immature Granulocytes # (auto) 0.09 K/uL (0.00-0.02); Immature Granulocytes % (auto) 0.6 %; Lymphocytes # (auto) 1.09 K/uL (1.2-3.4); Lymphocytes % (auto) 6.9 %; Monocytes # (auto) 0.68 K/uL (0.11-0.59); Monocytes % (auto) 4.3 %; Neutrophils # (auto) 14.03 K/uL (1.4-6.5); Neutrophils % (auto) 88.1 %
[2021-06-14] MEDS ORDERED: ICU ELECTROLYTE REPLACEMENT PROTOCOL SCH (06:00)
[2021-06-14] MEDS: MAGNESIUM SULFATE / D5W 1 GM/100 ML BAG IV SCH ×2 (07:47→10:03)
--- NOTE | 2021-06-14 08:57 | CT Scan Report ---
CT angio abdomen pelvis w con HISTORY: rectal bleeding. lower gi bleed, hypotension TECHNIQUE: Multiaxial CT images of the abdomen and pelvis were performed following the intravenous ad ministration of 118 cc of Optiray 320 to evaluate the major arterial structures. Maximum intensity pr ojection images were also obtained. COMPARISON STUDY: Abdomen and pelvis CT 02/09/2015. FINDINGS: Mild interstitial thickening at the lung bases which is likely chronic. No pneumoperitoneum . No pneumatosis. No suspicious lytic or blastic osseous lesions. The heart remains mildly enlarged. Pacemaker wires are noted. There is a small hiatus hernia, unchanged. Small fat-containing right ingu inal hernia is again noted. The liver, gallbladder, pancreas, spleen, and adrenal glands are unremark able. No hydronephrosis. Mild bilateral cortical renal scarring persists. There is a 9.6 mm exophytic hypodense lesion within the lower pole of the left kidney. This is technically too small to characte rize but favors a cyst. No retroperitoneal lymphadenopathy. No pelvic free fluid. Small posterior federica dder diverticula are again noted. No bladder wall thickening. The prostate gland is mildly enlarged. Mildly distended and fluid-filled colon. Colonic diverticulosis. No evidence for acute diverticulitis . No bowel wall thickening or obstruction. The visualized appendix is unremarkable. The abdominal aorta is normal and course and caliber with no evidence for dissection. The celiac arnel ry, superior mesenteric artery, inferior mesenteric artery, renal arteries, and iliac arteries are no rmal in course and caliber. Mild calcified plaque within the abdominal aorta. 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 No active arterial extravasation identified within the bowel. IMPRESSION: 1. The colon is mild is distended and fluid-filled. This could be due to a diarrheal state/gastroente ritis or possibly represent the patient's known GI bleed. No distinct site of active GI bleed is iden tified. 2. No significant stenosis, occlusion, or dissection identified within the aorta or major mesenteric vessels. 3. 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 4. Colonic diverticulosis. No evidence for acute diverticulitis. 5. Additional findings as described above. ACT 112: Negative or not required by law. Electronically signed by: Tae Centeno M.D. 06/14/2021 8:56 AM
[2021-06-14] MEDS ORDERED: ICU PROTOCOL FOR HYPERGLYCEMIA SCH (09:00)
[2021-06-14] MEDS ORDERED: PANTOprazole 40 MG in SYRINGE 0 ML IV SCH ×2 (09:00→11:00)
--- NOTE | 2021-06-14 09:01 | Gastrointestinal Consultation ---
Date of Consultation June 14, 2021 Assessment & Plan (1) Acute GI bleeding: -Continue to monitor H/H -Continue Protonix gtt -Keep NPO for EGD in ICU today Supervising Physician Co-Signing Physician Notes I personally evaluated the patient and agree with the findings as documented by PACO [place] Exam: Constitutional: WD/WN, vitals as aboveGeneral: EOM intact bilaterally Neck: normal visual inspection Respiratory: normal respiratory effort, lungs clear to auscultation Cardiovascular: RRR, no murmur, no edema Gastrointestinal: abdomennormal to inspection, nondistended, soft, nontender, no hepatosplenomegaly Musculoskeletal: no cyanosis, head normal to inspection Skin: no rashes, warm and dry Neurologic: moves all extremities Psychiatric: A and O x3, euthymic affect Proceed with EGD. risks/benefits and procedure discussed with patient, who agrees to proceed History of Present Illness Reason for Consultation: GI bleeding Attending Physician: John Flaherty DO History of Present Illness Patient is an 85 yo male with PMH of AV block s/p PPM, CAD, A fib on Eliquis, HTN, HLD, hypothyroidism, & gout. Patient notes that he was in his usual state of health until yesterday he developed a large bloody bowel movement prior to presenting to the ED. The patient continued to have several more episodes of large bloody bowel movements in the ED. He became hypotensive in the ED. He denies abdominal pain, diarrhea, or other symptoms at present. He had a CTA in the ED that did not identify a clear source of GI bleeding. Patient reportedly was experiencing mental status changes, though he is no longer experiencing this. Reportedly the on-call advertisement distributor was notified and the decision to transfer for IR services was made. His H/H is currently 10.6/31.4. Eliquis is being held. BP currently 156/85. He is currently on a Protonix drip. He notes a history of a bleed related to his hiatal hernia in the . Historical notes show that he also was admitted in 1998 for a possible diverticular bleed. Allergies Allergy/AdvReac Type Severity Reaction Status Date / Time No Known Allergies Allergy Unknown Verified 05/02/21 09:50 Home Medications Medication Instructions Recorded Confirmed Type cyanocobalamin (vitamin B-12) 1,000 mcg PO DAILY tab 09/11/18 05/02/21 History 1,000 mcg tablet sildenafil 100 mg tablet 100 mg PO DAILY PRN #10 tab 06/23/20 04/19/21 Rx allopurinol 300 mg tablet See Rx Instructions .ROUTE 11/11/20 05/02/21 Rx .COMPLEX #90 tab metoprolol succinate 100 mg See Rx Instructions .ROUTE 11/11/20 05/02/21 Rx tablet,extended release 24 hr .COMPLEX #135 tab amlodipine 5 mg-valsartan 320 mg 1 tab PO DAILY #90 tab 12/21/20 05/02/21 Rx tablet levothyroxine 112 mcg tablet 112 mcg PO DAILY #90 tab 12/21/20 05/02/21 Rx atorvastatin 10 mg tablet See Rx Instructions .ROUTE 01/31/21 05/02/21 Rx .COMPLEX #90 tab apixaban 5 mg tablet (Eliquis) 5 mg PO BID #60 tab 03/14/21 05/02/21 Rx flecainide 50 mg tablet 50 mg PO Q12H #60 tab 04/13/21 05/02/21 Rx Patient History Medical History Aortic atherosclerosis Atrial fibrillation BPH (benign prostatic hyperplasia) Erectile dysfunction Hx of gastric ulcer Hx of gout Hyperlipidemia Hypertension Hypothyroidism Nummular eczema Prediabetes Premature ventricular contractions (PVCs) (VPCs) Sick sinus syndrome S/p Medtronic pacer placement (2002) Surgical History H/O colonoscopy History of cataract surgery RT/LEFT 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 CRUZ History of tonsillectomy and adenoidectomy "TONSILS REMOVED 2X" S/P hernia repair Family History Father Cardiac disorder Mother Pneumonia Other No family history of adverse response to anesthesia Denies family history of Ovarian cancer Prostate cancer Breast cancer Lung cancer Colorectal cancer Social History Smoking Status: Never smoker Second Hand Exposure: No; Hx Alcohol Use: Yes Alcohol type: beer Alcohol Intake Frequency: 4 or More x per/Week Hx Substance Use: No Preferred Language: Arabic Communication Ability: Effective Visual Impairment: No Limitations Hearing Ability: Hard of Hearing Manager Transfer Required: No Beliefs That Will Affect Care: None marital status: Current Living Situation: Spouse current occupational status: retired Other Information That Helps Us Care for You: No Feels Safe at Home: Yes Safety Concerns: Feels Safe At This Time Childhood Exposure to Second-Hand Smoke: No Dental Care, Regularly: Yes Physical Activity Frequency: Daily Seatbelt Use: always Sunscreen Use: No Assistive Devices: None Review of Systems Constitutional: no fever and no chills Respiratory: no cough and no dyspnea Cardiovascular: no chest pain Gastrointestinal: + blood in stools; no abdominal pain, no coffee ground emesis and no melena Neurologic: no problem reported Psychiatric: no problem reported Hematologic / Lymphatic: no unexplained weight loss Physical Exam Constitutional: WD/WN, vitals as above Respiratory: normal respiratory effort Cardiovascular: Rate/Rhythm: regular rate and regular rhythm Gastrointestinal (Abdomen): Inspection/Auscultation: abdomen normal to inspection Musculoskeletal: Head/Neck/Chest: normocephalic Skin: + pallor Psychiatric: Orientation: alert and oriented x 3 Results & Data ([facility]) Vital Signs (Past 12 Hours) Vital Signs Temp Pulse Pulse Pulse Resp BP BP 06/14/21 08:30 67 18 121/72 06/14/21 08:15 71 25 H 131/74 06/14/21 08:00 69 21 126/74 06/14/21 07:45 71 20 137/78 06/14/21 07:30 71 19 134/78 06/14/21 07:15 70 16 129/72 06/14/21 07:00 69 19 133/75 06/14/21 06:50 70 15 06/14/21 06:42 73 22 156/85 H 06/14/21 06:40 74 21 06/14/21 06:30 72 17 133/74 06/14/21 06:28 70 22 134/81 06/14/21 06:20 67 15 06/14/21 06:15 70 19 140/78 06/14/21 06:10 71 16 06/14/21 06:00 70 20 141/79 H 06/14/21 05:50 70 15 06/14/21 05:45 69 22 142/80 H 06/14/21 05:40 70 21 06/14/21 05:30 68 19 139/79 06/14/21 05:20 67 20 06/14/21 05:15 64 14 123/69 06/14/21 05:10 68 17 06/14/21 05:00 71 19 145/79 H 06/14/21 04:50 69 20 06/14/21 04:45 36.8 C 66 20 130/75 06/14/21 04:40 65 19 06/14/21 04:30 66 17 127/73 06/14/21 04:20 65 21 06/14/21 04:15 66 23 127/71 06/14/21 04:10 65 15 06/14/21 04:00 65 16 118/72 06/14/21 03:50 65 22 06/14/21 03:45 65 23 123/73 06/14/21 03:40 66 21 126/74 06/14/21 03:35 71 27 H 137/76 06/14/21 03:30 66 28 H 131/73 06/14/21 03:25 67 27 H 128/73 06/14/21 03:24 67 27 H 139/77 06/14/21 03:20 36.5 C 67 24 146/76 H 06/14/21 03:14 36.5 C 71 16 133/77 06/14/21 03:10 36.5 C 71 16 133/77 06/14/21 03:06 36.5 C 68 16 142/76 H 06/14/21 03:00 127/83 06/14/21 02:56 142/76 H 06/14/21 02:55 36.5 C 68 142/76 H 06/14/21 02:51 36.4 C L 66 16 121/79 06/14/21 02:49 36.4 C L 66 16 121/79 06/14/21 02:45 36.4 C L 69 24 139/70 06/14/21 02:31 128/90 06/14/21 02:20 36.5 C 70 139/70 06/14/21 01:51 36.4 C L 60 18 115/69 06/14/21 01:41 60 113/68 06/14/21 01:33 60 63/42 L 06/14/21 01:27 36.5 C 62 18 106/65 06/14/21 01:12 36.5 C 60 18 124/68 06/14/21 00:57 36.5 C 61 16 109/65 06/14/21 00:34 65 78/48 L 06/14/21 00:30 66 66/49 L 06/14/21 00:16 61 18 114/69 06/14/21 00:00 61 18 117/74 06/13/21 23:18 60 18 120/77 06/13/21 22:44 36.5 C 96 H 20 115/69 Pulse Ox 06/14/21 08:30 95 06/14/21 08:15 95 06/14/21 08:00 97 06/14/21 07:45 96 06/14/21 07:30 97 06/14/21 07:15 96 06/14/21 07:00 96 06/14/21 06:50 95 06/14/21 06:42 98 06/14/21 06:40 97 06/14/21 06:30 95 06/14/21 06:28 96 06/14/21 06:20 96 06/14/21 06:15 97 06/14/21 06:10 92 06/14/21 06:00 95 06/14/21 05:50 97 06/14/21 05:45 96 06/14/21 05:40 97 06/14/21 05:30 96 06/14/21 05:20 97 06/14/21 05:15 95 06/14/21 05:10 95 06/14/21 05:00 95 06/14/21 04:50 97 06/14/21 04:45 97 06/14/21 04:40 98 06/14/21 04:30 97 06/14/21 04:20 96 06/14/21 04:15 97 06/14/21 04:10 97 06/14/21 04:00 97 06/14/21 03:50 98 06/14/21 03:45 95 06/14/21 03:40 97 06/14/21 03:35 86 L 06/14/21 03:30 95 06/14/21 03:25 97 06/14/21 03:24 97 06/14/21 03:20 97 06/14/21 03:14 100 06/14/21 03:10 100 06/14/21 03:06 100 06/14/21 03:00 06/14/21 02:56 06/14/21 02:55 100 06/14/21 02:51 98 06/14/21 02:49 98 06/14/21 02:45 98 06/14/21 02:31 06/14/21 02:20 100 06/14/21 01:51 95 06/14/21 01:41 97 06/14/21 01:33 98 06/14/21 01:27 99 06/14/21 01:12 99 06/14/21 00:57 98 06/14/21 00:34 06/14/21 00:30 06/14/21 00:16 99 06/14/21 00:00 99 06/13/21 23:18 97 06/13/21 22:44 95 PG Care Time/CCT Total # of Minutes Spent Total Time Spent with Patient: Total time spent is greater than 50% in coordination of care (as documented) at patient's floor/unit and/or counseling patient: Coding Level of Care Code 16961 Initial Inpt Care Lvl 3 Diagnoses Acute GI bleeding K92.2
--- NOTE | 2021-06-14 09:12 | Anesthesiology Consultation ---
Date of Service June 14, 2021 Assessment & Plan Chart Review Chart Review: Acceptable Risk for Surgery and Patient NOT seen in Pre Admission Testing Consults Requested none ASA ASA4 Proposed Anesthesia Anesthesia Type: MAC History Surgery Operation Date: 06/14/21 16:30 Proposed Procedures p Esophagogastroduodenoscopy Dr. Zee Koch MD Height/Weight Height: 5 ft 10 in Weight: 77.2 kg Allergies Allergy/AdvReac Type Severity Reaction Status Date / Time No Known Allergies Allergy Unknown Verified 05/02/21 09:50 Medications Home Medications Medication Instructions Recorded Confirmed Last Taken cyanocobalamin (vitamin B-12) 1,000 mcg PO DAILY tab 09/11/18 05/02/21 Unknown 1,000 mcg tablet sildenafil 100 mg tablet 100 mg PO DAILY PRN #10 tab 06/23/20 04/19/21 Unknown allopurinol 300 mg tablet See Rx Instructions .ROUTE 11/11/20 05/02/21 Unknown .COMPLEX #90 tab metoprolol succinate 100 mg See Rx Instructions .ROUTE 11/11/20 05/02/21 04/21/21 tablet,extended release 24 hr .COMPLEX #135 tab 50 amlodipine 5 mg-valsartan 320 mg 1 tab PO DAILY #90 tab 12/21/20 05/02/21 Unknown tablet levothyroxine 112 mcg tablet 112 mcg PO DAILY #90 tab 12/21/20 05/02/21 Unknown atorvastatin 10 mg tablet See Rx Instructions .ROUTE 01/31/21 05/02/21 Unknown .COMPLEX #90 tab apixaban 5 mg tablet (Eliquis) 5 mg PO BID #60 tab 03/14/21 05/02/21 04/21/21 flecainide 50 mg tablet 50 mg PO Q12H #60 tab 04/13/21 05/02/21 Unknown Active Medications Generic Name Dose Route Start Last Admin Trade Name Freq PRN Reason Stop Dose Admin Sodium Chloride 1,000 mls @ 50 mls/hr 06/14/21 02:00 06/14/21 04:24 Nss 1000ml IV 07/14/21 01:59 50 mls/hr .Q20H TIMMY Administration Norepinephrine Bitartrate 8 mg in 508 mls @ 14.345 mls/hr 06/14/21 02:00 06/14/21 07:46 Levophed/D5w IV 07/14/21 01:59 Not Given .Q24H TIMMY Protocol 0.05 MCG/KG/MIN Magnesium Sulfate/Dextrose 1 gm in 100 mls @ 50 mls/hr 06/14/21 07:15 06/14/21 07:47 Magnesium Sulfate / D5w IV 06/14/21 15:14 50 mls/hr Q2H TIMMY Administration Miscellaneous 1 ea 06/14/21 06:00 06/14/21 07:09 Icu Electrolyte Replacement Protocol N/A 06/21/21 05:59 1 ea BID@06,18 TIMMY Administration Protocol Past Medical History Medical History Aortic atherosclerosis Atrial fibrillation BPH (benign prostatic hyperplasia) Erectile dysfunction Hx of gastric ulcer Hx of gout Hyperlipidemia Hypertension Hypothyroidism Nummular eczema Prediabetes Premature ventricular contractions (PVCs) (VPCs) Sick sinus syndrome S/p Medtronic pacer placement (2002) Exercise / Class Metabolic Activity III < 4 Walking/Shop/Light housework Past Family History Family History Father Cardiac disorder Mother Pneumonia Other No family history of adverse response to anesthesia Denies family history of Ovarian cancer Prostate cancer Breast cancer Lung cancer Colorectal cancer Past Surgical History Surgical History H/O colonoscopy History of cataract surgery RT/LEFT 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 CRUZ History of tonsillectomy and adenoidectomy "TONSILS REMOVED 2X" S/P hernia repair Past Anesthesia History No Hx of Anesthesia Complications and No Family Hx of Anesthesia Complications History of PONV No Hx of PONV and No Hx of Motion Sickness Social History Smoking Status: Never smoker tobacco type: cigarettes Hx Alcohol Use: Yes Alcohol type: beer alcohol intake frequency: 0-2 drinks per day Hx Substance Use: No substance use type: does not use Physical Exam Vital Signs Last Vital Signs Temp 36.8 C 06/14/21 04:45 Pulse 67 06/14/21 08:30 Resp 18 06/14/21 08:30 BP 121/72 06/14/21 08:30 Pulse Ox 95 06/14/21 08:30 Testing Laboratory Results 06/14/21 04:37 06/14/21 04:37 PT 11.8 Seconds (9.0-12.0) 06/14/21 02:59 INR 1.1 (0.9-1.1) 06/14/21 02:59 APTT 21.0 Seconds (21.0-31.0) 06/14/21 02:59 Urine Color Yellow 06/14/21 03:40 Urine Appearance Cloudy (Clear) A 06/14/21 03:40 Urine pH 6.5 (4.5-7.5) 06/14/21 03:40 Ur Specific [place] 1.032 (1.000-1.030) H 06/14/21 03:40 Urine Protein Negative (Negative) 06/14/21 03:40 Urine Glucose (UA) Negative (Negative) 06/14/21 03:40 Urine Ketones Negative (Negative) 06/14/21 03:40 Urine Nitrite Positive (Negative) A 06/14/21 03:40 Ur Leukocyte Esterase 2+ (Negative) H 06/14/21 03:40 Urine WBC (Auto) >30 /hpf (0-5) H 06/14/21 03:40 Urine RBC (Auto) 0-4 /hpf (0-4) 06/14/21 03:40 U Hyaline Cast (Auto) 1-5 /lpf (0-5) 06/14/21 03:40 U Epithel Cells (Auto) 0-5 /lpf (0-5) 06/14/21 03:40 Urine Bacteria (Auto) 3+ (Negative) H 06/14/21 03:40 Blood Type O Positive 06/13/21 23:02 Antibody Screen NEGATIVE 06/13/21 23:02 Electrocardiogram Date: 06/13/21 V-paced @ 119 in pattern of bigemini Echocardiogram Date: 04/13/21 EF: 55% LV Function: normal RWMA: + none Other Findings: + LVH (mild) Valvular Disease: + MR (mild MR/MVP) RV-borderline dilated;mild -mod. TR;RA-mod.dilated Other Testing 03/31/2020-no H/D sig. stenosis;+ plaque
[2021-06-14] MEDS ORDERED: PANTOprazole 40 MG in DEXTROSE 5% 100 ML IV SCH (09:15)
[2021-06-14 09:19] LABS: Basophils # (auto) 0.02 K/uL (0-0.2); Basophils % (auto) 0.1 %; Hematocrit (blood only) 32.5 % (42-52); Hemoglobin 11.1 g/dL (14.0-18.0); Immature Granulocytes # (auto) 0.04 K/uL (0.00-0.02); Immature Granulocytes % (auto) 0.2 %; Lymphocytes # (auto) 1.44 K/uL (1.2-3.4); Lymphocytes % (auto) 8.6 %; Mean Corpuscular Hemoglobin 31.4 pg (25-34); Mean Corpuscular Hgb Conc 34.2 g/dL (32-36); Mean Corpuscular Volume 92.1 fL (80-100); Monocytes # (auto) 0.98 K/uL (0.11-0.59); Monocytes % (auto) 5.9 %; Neutrophils % (auto) 85.2 %; Platelet Count 166 K/uL (130-400); RDW Coefficient of Variation 17.7 % (11.5-14.5); RDW Standard Deviation 59.3 fL (36.4-46.3); Red Blood Count 3.53 M/uL (4.7-6.1); White Blood Count 16.68 K/uL (4.8-10.8)
[2021-06-14] MEDS ORDERED: ATROPINE SULFATE 0.1 MG/ML 10ML SYR IV PRN (09:31)
[2021-06-14] MEDS ORDERED: ePHEDrine sulfate 50 MG/ML AMP IV PRN (09:31)
--- NOTE | 2021-06-14 09:51 | GI REPORT ---
Patient Name: Bridger Britton Procedure Date: 06/14/2021 9:35 AM Date of : 1935 Admit Type: Inpatient Age: 85 Gender: Male Attending MD: Ge Koch MD Procedure: Upper GI endoscopy Providers: Ge Koch MD Referring MD: John Flaherty Indications: Hematochezia Medicines: Monitored Anesthesia Care Complications: No immediate complications. Estimated blood loss: None. Estimated Blood Loss: Estimated blood loss: none. Procedure: Pre-Anesthesia Assessment: - Prior Anticoagulants: The patient has taken no previous anticoagulant or antiplatelet agents. - ASA Grade Assessment: II - A patient with mild systemic disease. After obtaining informed consent, the endoscope was passed under direct vision. Throughout the procedure, the patient's blood pressure, pulse, and oxygen saturations were monitored continuously. The Scope was introduced through the mouth, and advanced to the second part of duodenum. The upper GI endoscopy was accomplished without difficulty. The patient tolerated the procedure well. Findings: The examined esophagus was normal. Diffuse mild inflammation characterized by erythema was found in the stomach. Biopsies were taken with a cold forceps for Helicobacter pylori testing. Estimated blood loss: none. The duodenal bulb and second portion of the duodenum were normal. No evidence of blood, ulcers, masses throughout entire exam. Impression: - Normal esophagus. - Gastritis. Biopsied. - Normal duodenal bulb and second portion of the duodenum. Recommendation: - remain NPO -supportive care -transfer to tertiary care center as planned for IR evaluation. - Await pathology results. Ge Koch MD 06/14/2021 9:50:27 AM This report has been signed electronically. Note Initiated On: 06/14/2021 9:35 AM Number of Addenda: 0 I attest to the content of the Intraoperative Record and orders documented therein, exceptions below {[id number]}
--- NOTE | 2021-06-14 10:31 | Anesthesiology Progress Note ---
Date of Service June 14, 2021 Anesthesia Post Procedure Vital Signs Vital Signs: Temp Pulse Pulse Pulse Resp BP BP 06/14/21 10:05 36.8 C 61 69 22 116/63 116/63 06/14/21 10:00 61 16 89/63 L 06/14/21 09:55 62 25 H 96/48 L 06/14/21 09:50 62 22 85/45 L 06/14/21 09:49 64 16 120/68 06/14/21 09:45 67 20 120/68 06/14/21 09:26 67 16 127/73 06/14/21 08:30 67 18 121/72 06/14/21 08:15 71 25 H 131/74 06/14/21 08:00 69 21 126/74 06/14/21 07:45 71 20 137/78 06/14/21 07:30 71 19 134/78 06/14/21 07:15 70 16 129/72 06/14/21 07:00 69 19 133/75 06/14/21 06:50 70 15 06/14/21 06:42 73 22 156/85 H 06/14/21 06:40 74 21 06/14/21 06:30 72 17 133/74 06/14/21 06:28 70 22 134/81 06/14/21 06:20 67 15 06/14/21 06:15 70 19 140/78 06/14/21 06:10 71 16 06/14/21 06:00 70 20 141/79 H 06/14/21 05:50 70 15 06/14/21 05:45 69 22 142/80 H 06/14/21 05:40 70 21 06/14/21 05:30 68 19 139/79 06/14/21 05:20 67 20 06/14/21 05:15 64 14 123/69 06/14/21 05:10 68 17 06/14/21 05:00 71 19 145/79 H 06/14/21 04:50 69 20 06/14/21 04:45 36.8 C 66 20 130/75 06/14/21 04:40 65 19 06/14/21 04:30 66 17 127/73 06/14/21 04:20 65 21 06/14/21 04:15 66 23 127/71 06/14/21 04:10 65 15 06/14/21 04:00 65 16 118/72 06/14/21 03:50 65 22 06/14/21 03:45 65 23 123/73 06/14/21 03:40 66 21 126/74 06/14/21 03:35 71 27 H 137/76 06/14/21 03:30 66 28 H 131/73 06/14/21 03:25 67 27 H 128/73 06/14/21 03:24 67 27 H 139/77 06/14/21 03:20 36.5 C 67 24 146/76 H 06/14/21 03:14 36.5 C 71 16 133/77 06/14/21 03:10 36.5 C 71 16 133/77 06/14/21 03:06 36.5 C 68 16 142/76 H 06/14/21 03:00 127/83 06/14/21 02:56 142/76 H 06/14/21 02:55 36.5 C 68 142/76 H 06/14/21 02:51 36.4 C L 66 16 121/79 06/14/21 02:49 36.4 C L 66 16 121/79 06/14/21 02:45 36.4 C L 69 24 139/70 06/14/21 02:31 128/90 06/14/21 02:20 36.5 C 70 139/70 06/14/21 01:51 36.4 C L 60 18 115/69 06/14/21 01:41 60 113/68 06/14/21 01:33 60 63/42 L 06/14/21 01:27 36.5 C 62 18 106/65 06/14/21 01:12 36.5 C 60 18 124/68 06/14/21 00:57 36.5 C 61 16 109/65 06/14/21 00:34 65 78/48 L 06/14/21 00:30 66 66/49 L 06/14/21 00:16 61 18 114/69 06/14/21 00:00 61 18 117/74 06/13/21 23:18 60 18 120/77 06/13/21 22:44 36.5 C 96 H 20 115/69 Pulse Ox 06/14/21 10:05 96 06/14/21 10:00 97 06/14/21 09:55 96 06/14/21 09:50 97 06/14/21 09:49 97 06/14/21 09:45 98 06/14/21 09:26 98 06/14/21 08:30 95 06/14/21 08:15 95 06/14/21 08:00 97 06/14/21 07:45 96 06/14/21 07:30 97 06/14/21 07:15 96 06/14/21 07:00 96 06/14/21 06:50 95 06/14/21 06:42 98 06/14/21 06:40 97 06/14/21 06:30 95 06/14/21 06:28 96 06/14/21 06:20 96 06/14/21 06:15 97 06/14/21 06:10 92 06/14/21 06:00 95 06/14/21 05:50 97 06/14/21 05:45 96 06/14/21 05:40 97 06/14/21 05:30 96 06/14/21 05:20 97 06/14/21 05:15 95 06/14/21 05:10 95 06/14/21 05:00 95 06/14/21 04:50 97 06/14/21 04:45 97 06/14/21 04:40 98 06/14/21 04:30 97 06/14/21 04:20 96 06/14/21 04:15 97 06/14/21 04:10 97 06/14/21 04:00 97 06/14/21 03:50 98 06/14/21 03:45 95 06/14/21 03:40 97 06/14/21 03:35 86 L 06/14/21 03:30 95 06/14/21 03:25 97 06/14/21 03:24 97 06/14/21 03:20 97 06/14/21 03:14 100 06/14/21 03:10 100 06/14/21 03:06 100 06/14/21 03:00 06/14/21 02:56 06/14/21 02:55 100 06/14/21 02:51 98 06/14/21 02:49 98 06/14/21 02:45 98 06/14/21 02:31 06/14/21 02:20 100 06/14/21 01:51 95 06/14/21 01:41 97 06/14/21 01:33 98 06/14/21 01:27 99 06/14/21 01:12 99 06/14/21 00:57 98 06/14/21 00:34 06/14/21 00:30 06/14/21 00:16 99 06/14/21 00:00 99 06/13/21 23:18 97 06/13/21 22:44 95 Transfer of Care Handoff Completed per policy Notes Mental Status: alert / awake / arousable Patient Amnestic to Procedure: Yes Nausea / Vomiting: adequately controlled Pain: adequately controlled Airway Patency, RR, SpO2: stable & adequate BP & HR: stable & adequate Hydration State: stable & adequate Anesthetic Complications: no major complications apparent
--- NOTE | 2021-06-15 22:56 | Electrocardiogram Report ---
Test Reason : Blood Pressure : / mmHG Vent. Rate : 060 BPM Atrial Rate : 060 BPM P-R Int : 000 ms QRS Dur : 034 ms QT Int : 266 ms P-R-T Axes : 061 -06 268 degrees QTc Int : 266 ms AV dual-paced rhythm Abnormal ECG When compared with ECG of 21-APR-2021 07:28, No significant change Confirmed by Sachin Roblero ([id number]) on 06/15/2021 10:55:27 PM Referred By: REFERRED SELF Confirmed By:Sachin Roblero
== END 2021-06-14 10:30 | disposition short-term general hospital (02) | DRG 377 ==
LOC: ED 22:38 → 1E 06-14 00:18 → SUATTDRO 06-14 00:18 → 1E 06-14 02:15

== ENCOUNTER 2022-05-24 13:43 | Inpatient (IN) ==
--- NOTE | 2022-05-24 14:26 | XRay Report ---
XR chest 1V not portable CLINICAL HISTORY: Chest pain, nonspecific TECHNIQUE: Single frontal radiograph of the chest was obtained. Comparison: Comparison is made to chest radiograph 02/13/2022 FINDINGS: Dual lead pacemaker is seen. Cardiomegaly is noted. The aortic arch is calcified. The lungs are clear . No evidence of pleural effusion or pneumothorax. IMPRESSION: No acute chest disease. Cardiomegaly is noted. ACT 112: Negative or not required by law. Electronically signed by: Mykel Brar M.D. 05/24/2022 2:25 PM
[2022-05-24 15:49] LABS: Basophils # (auto) 0.05 K/uL (0-0.2); Basophils % (auto) 0.7 %; Eosinophils # (auto) 0.08 K/uL (0-0.50); Hematocrit (blood only) 41.9 % (42.0-52.0); Hemoglobin 14.8 g/dl (14.0-18.0); Immature Granulocytes # (auto) 0.05 K/uL (0.01-0.20); Immature Granulocytes % (auto) 0.7 %; Lymphocytes # (auto) 1.41 K/uL (1.2-3.4); Lymphocytes % (auto) 18.5 %; Mean Corpuscular Hemoglobin 34.9 pg (25.0-34.0); Mean Corpuscular Hgb Conc 35.3 g/dL (32.0-36.0); Mean Corpuscular Volume 98.8 fL (80.0-100.0); Mean Platelet Volume 10.1 fL (9.4-12.4); Monocytes # (auto) 0.53 K/uL (0.11-0.59); Monocytes % (auto) 6.9 %; Neutrophils # (auto) 5.52 K/uL (1.40-6.50); Neutrophils % (auto) 72.2 %; Platelet Count 184 K/uL (130-400); RDW Coefficient of Variation 13.2 % (11.5-14.5); RDW Standard Deviation 47.8 fL (36.4-46.3); Red Blood Count 4.24 M/uL (4.70-6.10); White Blood Count 7.64 K/ul (4.8-10.8)
[2022-05-24 16:04] LABS: Albumin Globulin Ratio 1.1 (0.9-2); Albumin Level 4.1 gm/dl (3.4-5.0); BUN Creatinine Ratio 12.8 (10-20); Bilirubin,Total 0.8 mg/dl (0.2-1.0); Calcium 9.4 mg/dl (8.6-10.3); Est GFR (African American) 60.9 ml/min; Est GFR (Non-African American) 52.5 ml/min; Globulin 3.7 gm/dl (2.5-4.0); Potassium 4.7 mmol/L (3.5-5.1); Total Protein 7.8 gm/dl (6.0-8.3)
[2022-05-24 16:10] LABS: Troponin I High Sensitivity 7.4 pg/ml (0-20)
--- NOTE | 2022-05-24 16:18 | Emergency Department Note ---
Impression & Plan SOB (shortness of breath) ED Provider Note INFORMANT: Patient ED PROVIDER(S): Rao Tavera MD CHIEF COMPLAINT: Shortness of breath PLAN: Disposition: Admitted Condition: Good Outpatient prescription management: none Referral: None MEDICAL DECISION MAKING: Patient presented with episodic shortness of breath. Cardiac records were reviewed. There was concerns about coronary artery disease as an etiology. Patient's CBC and chemistry panel were unremarkable. Troponin was negative. Patient's chest x-ray did not reveal any acute findings. Paced rhythm on ECG. Discussed case with Dr. Montano of cardiology. In light of his symptoms and concern for possible CAD he recommended bringing the patient in the hospital and completing a work-up here to possibly include cardiac catheterization tomorrow. Discussed with patient and significant other. They were in agreement. Consultation was made with [facility]. Patient was evaluated in the ER admitted for further management. After review of the information above and other included data, I feel the patient requires admission. Triage Nursing notes reviewed and agree them. Vital Signs: reviewed and remarkable for no significant abnormalities Prior /Outside records reviewed: Cardiac records reviewed regarding recent visit Differential diagnosis: ACS, Reactive airway disease, pneumonia, pneumothorax, COPD, CHF, infections, cardiac ischemia, pulmonary embolism, musculoskeletal, gastrointestinal, as well as other pathologies. Diagnostics, as interpreted by me: ECG: Twelve-lead ECG reveals AV paced rhythm at 83 bpm. No obvious ischemia. Cardiac Monitoring: Cardiac monitoring ordered by me: The patient was placed on continuous cardiac monitoring and observed. It revealed a paced rhythm at 87 bpm. Medical decision rules: none Imaging studies: Chest x-ray. Findings: A chest x-ray was performed and revealed no pneumothorax, effusion, infiltrate, pulmonary edema, free air under the diaphragm, or wide mediastinum. Mild cardiomegaly HPI: The patient is a 86year old male who presents to the Emergency Room with complaints of shortness of breath. This started this afternoon after pushing a lawnmower and is now resolved. Patient states he went in the house and the symptoms resolved. Patient had an episode 4 days ago. He did see his admission specialist 3 days ago and there was concerns that he may have coronary artery disease per the patient and and he is going to be scheduled for a cardiac c atheterization. He has a history of CAD and pacer. Patient also notes he gets transient episodes of blurred vision that has been going on for years. Today was no different. He has been followed by his eye doctor for this. No sources were identified. The patient also notes the following associated symptoms, none. The patient has taken no medications for relieving factors. Current pain is rated as 0/10. Pt denies LOC, headache, fevers, chills, diaphoresis, neck pain, chest pain, nausea, vomiting, abdominal pain, back pain, melena, hematochezia, urinary symptoms, numbness, weakness, lymphadenopathy, rash, or other complaints. PAST MEDICAL HISTORY: See Below, CAD PAST SURGICAL HISTORY: See Below, pacemaker SOCIAL HISTORY: See Below, . Quit smoking 50 years ago HOME MEDICATIONS: See Below ALLERGIES: See Below VITALS: See Below PHYSICAL EXAMINATION: GENERAL: Awake, alert, [id number], in no distress HENT: Normocephalic, atraumatic. Oropharynx unremarkable. EYES: Normal conjunctiva. Sclera non-icteric. NECK: Inspection normal. Non-tender. Supple. No nuchal rigidity. FROM. No masses. RESPIRATORY: Clear to auscultation. No wheezes. No rales. Normal respiratory ef fort. CARDIAC: Normal rate. Normal rhythm. No murmurs. No rubs. Extremities warm and well perfused. Pulses equal. No JVD. GI: Soft, non-distended. No tenderness to palpation. No rebound or guarding. No masses. RECTAL: Deferred. MUSCULOSKELETAL: Atraumatic. Chest examination reveals no tenderness. The back is symmetrical on inspection without obvious abnormality. There is no CVA tenderness to palpation. No joint edema. LOWER EXTREMITIES: Calves are equal size bilaterally and non-tender. No edema. No discoloration. NEURO: Normal sensorium. No sensory or motor deficits noted. SKIN: No rash or jaundice noted. Past Med/Surg History Medical History (Updated 05/24/22 @ 17:21 by Christiano Borges PA-C) Abnormal CT scan, colon Aortic atherosclerosis Atrial fibrillation pacer/ cardioversion/ meds Atrioventricular block, complete BPH (benign prostatic hyperplasia) Diverticulosis Erectile dysfunction History of cardioversion Hx of gastric ulcer Hx of gout Hx of lower gastrointestinal bleeding no longer on Eliquis due to this > resolved Hyperlipidemia Hypertension Hypothyroidism Inguinal hernia Macrocytic anemia Nummular eczema Prediabetes Premature ventricular contractions (PVCs) (VPCs) Sick sinus syndrome S/p [employer] pacer placement (2002) Sinus node dysfunction Tubular adenoma of colon Surgical History H/O colonoscopy 08/2021 repeat 3 yrs History of cataract surgery RT/LEFT History of esophagogastroduodenoscopy (EGD) 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 CRUZ History of tonsillectomy and adenoidectomy "TONSILS REMOVED 2X" S/P hernia repair Family History Father Cardiac disorder Mother Pneumonia Other No family history of adverse response to anesthesia Denies family history of Ovarian cancer Prostate cancer Breast cancer Lung cancer Colorectal cancer Social History Smoking Status: Former smoker Second Hand Exposure: No; Do You Dip or Chew Tobacco: No; Hx Alcohol Use: Yes Alcohol type: beer Alcohol Intake Frequency: 4 or More x per/Week Hx Substance Use: No Preferred Language: Jamaican Communication Ability: Effective Visual Impairment: No Limitations Hearing Ability: Hard of Hearing Adult Literacy Instructor Required: No Beliefs That Will Affect Care: None marital status: Current Living Situation: Spouse current occupational status: retired Other Information That Helps Us Care for You: No Feels Safe at Home: Yes Safety Concerns: Feels Safe At This Time Childhood Exposure to Second-Hand Smoke: No Dental Care, Regularly: Yes Physical Activity Frequency: Daily Seatbelt Use: always Sunscreen Use: No Assistive Devices: Hearing Aid - Bilateral Assistive Devices Comment: hearing aids taken home by Allergies Allergies Allergy/AdvReac Type Severity Reaction Status Date / Time No Known Drug Allergies Allergy Verified 05/24/22 13:21 Home Meds Home Medications Medication Instructions Recorded Confirmed cyanocobalamin (vitamin B-12) 1,000 mcg PO PM 06/20/21 05/24/22 1,000 mcg capsule aspirin 81 mg tablet,delayed 81 mg PO DAILY 12/02/21 05/24/22 release amlodipine 5 mg-valsartan 320 mg 1 tab PO DAILY 05/24/22 05/24/22 tablet atorvastatin 10 mg tablet 10 mg PO HS 05/24/22 05/24/22 levothyroxine 112 mcg tablet 112 mcg PO QAM 05/24/22 05/24/22 (Synthroid) Previous Rx's Medication Instructions Recorded flecainide 100 mg tablet 100 mg PO Q12H #180 tabs 07/07/21 amoxicillin 500 mg tablet 2,000 mg PO PRN Antibiotic 11/07/21 prophylaxis #4 tabs famotidine 40 mg tablet 40 mg PO HS #90 tabs 12/21/21 pantoprazole 40 mg tablet,delayed 40 mg PO BID #60 tabs 01/24/22 release (Protonix) allopurinol 300 mg tablet 300 mg PO QAM #90 tabs 02/01/22 metoprolol succinate 100 mg 100 mg PO BID #90 tabs 04/28/22 tablet,extended release 24 hr Results & Data (ED) Vital Signs Vital Signs - 24 hr 05/24/22 13:48 05/24/22 15:14 05/24/22 15:15 Temperature 36.6 C Temperature Source Temporal Artery Scan Pulse Rate 89 Pulse Rate [Apical] 61 Pulse Rate from SpO2 Sensor Pulse Rhythm [Apical] Regular Respiratory Rate 18 18 Respiratory Effort / Characteristics Non-Labored Spontaneous Respiratory Depth Normal Normal Respiratory Pattern Regular Blood Pressure 129/86 Blood Pressure [Left Arm] 114/80 Blood Pressure Mean 100 Blood Pressure Mean [Left Arm] 91 Pulse Oximetry 96 97 96 Oxygen Delivery Method Room Air Room Air Room Air Sepsis Recent Fever Within 48 Hours No Sepsis New/Unexplained Change in Mental Status No Sepsis Action Taken by Nursing No Action Required 05/24/22 15:20 05/24/22 15:26 05/24/22 15:16 Temperature Temperature Source Pulse Rate 63 63 Pulse Rate [Apical] Pulse Rate from SpO2 Sensor 63 Pulse Rhythm [Apical] Respiratory Rate 18 Respiratory Effort / Characteristics Respiratory Depth Respiratory Pattern Blood Pressure Blood Pressure [Left Arm] Blood Pressure Mean Blood Pressure Mean [Left Arm] Pulse Oximetry 96 98 Oxygen Delivery Method Room Air Sepsis Recent Fever Within 48 Hours Sepsis New/Unexplained Change in Mental Status Sepsis Action Taken by Nursing 05/24/22 15:20 05/24/22 15:30 05/24/22 15:40 Temperature Temperature Source Pulse Rate 63 60 60 Pulse Rate [Apical] Pulse Rate from SpO2 Sensor 60 Pulse Rhythm [Apical] Respiratory Rate 18 13 15 Respiratory Effort / Characteristics Respiratory Depth Respiratory Pattern Blood Pressure Blood Pressure [Left Arm] Blood Pressure Mean Blood Pressure Mean [Left Arm] Pulse Oximetry 96 Oxygen Delivery Method Sepsis Recent Fever Within 48 Hours Sepsis New/Unexplained Change in Mental Status Sepsis Action Taken by Nursing 05/24/22 15:52 05/24/22 16:00 05/24/22 16:10 Temperature Temperature Source Pulse Rate 61 62 62 Pulse Rate [Apical] Pulse Rate from SpO2 Sensor 62 62 Pulse Rhythm [Apical] Respiratory Rate 18 20 17 Respiratory Effort / Characteristics Respiratory Depth Respiratory Pattern Blood Pressure Blood Pressure [Left Arm] Blood Pressure Mean Blood Pressure Mean [Left Arm] Pulse Oximetry 96 97 Oxygen Delivery Method Sepsis Recent Fever Within 48 Hours Sepsis New/Unexplained Change in Mental Status Sepsis Action Taken by Nursing 05/24/22 16:20 05/24/22 16:30 05/24/22 16:40 Temperature Temperature Source Pulse Rate 60 Pulse Rate [Apical] Pulse Rate from SpO2 Sensor 61 63 Pulse Rhythm [Apical] Respiratory Rate 19 19 22 Respiratory Effort / Characteristics Respiratory Depth Respiratory Pattern Blood Pressure Blood Pressure [Left Arm] Blood Pressure Mean Blood Pressure Mean [Left Arm] Pulse Oximetry 94 96 Oxygen Delivery Method Sepsis Recent Fever Within 48 Hours Sepsis New/Unexplained Change in Mental Status Sepsis Action Taken by Nursing Laboratory Data 05/24/22 15:10 05/24/22 15:10 Lab Results 05/24/22 05/24/22 05/24/22 Range/Units 15:10 15:10 15:10 WBC 7.64 (4.8-10.8) K/ul RBC 4.24 L (4.70-6.10) M/uL Hgb 14.8 (14.0-18.0) g/dl Hct 41.9 L (42.0-52.0) % MCV 98.8 (80.0-100.0) fL MCH 34.9 H (25.0-34.0) pg MCHC 35.3 (32.0-36.0) g/dL RDW Std Deviation 47.8 H (36.4-46.3) fL RDW Coeff of Floyd 13.2 (11.5-14.5) % Plt Count 184 (130-400) K/uL MPV 10.1 (9.4-12.4) fL Immature Gran % (Auto) 0.7 % Neut % (Auto) 72.2 % Lymph % (Auto) 18.5 % Pinal % (Auto) 6.9 % Eos % (Auto) 1.0 % Baso % (Auto) 0.7 % Neut # (Auto) 5.52 (1.40-6.50) K/uL Lymph # (Auto) 1.41 (1.2-3.4) K/uL P[place] # (Auto) 0.53 (0.11-0.59) K/uL Eos # (Auto) 0.08 (0-0.50) K/uL Baso # (Auto) 0.05 (0-0.2) K/uL Immature Gran # (Auto) 0.05 (0.01-0.20) K/uL PT Cancelled INR Cancelled APTT Cancelled PTT Ratio Cancelled Sodium 135 L (136-145) mmol/L Potassium 4.7 (3.5-5.1) mmol/L Chloride 100 (98-107) mmol/L Carbon Dioxide 29 (21-32) mmol/L Anion Gap 6 (3-11) BUN 16 (6-23) mg/dl Creatinine 1.25 (0.6-1.4) mg/dl Est Cr Clr Drug Dosing 44.0 ml/min Est GFR ( Amer) 60.9 ml/min Est GFR (Non-Af Amer) 52.5 ml/min BUN/Creatinine Ratio 12.8 (10-20) Glucose 109 H (70-99(Fasting)) mg/dl Calcium 9.4 (8.6-10.3) mg/dl Total Bilirubin 0.8 (0.2-1.0) mg/dl AST 26 (13-39) U/L ALT 22 (7-52) U/L Alkaline Phosphatase 88 (34-104) U/L Troponin I High Sens 7.4 (0-20) pg/ml Total Protein 7.8 (6.0-8.3) gm/dl Albumin 4.1 (3.4-5.0) gm/dl Globulin 3.7 (2.5-4.0) gm/dl Albumin/Globulin Ratio 1.1 (0.9-2) 05/24/22 Range/Units 16:41 WBC (4.8-10.8) K/ul RBC (4.70-6.10) M/uL Hgb (14.0-18.0) g/dl Hct (42.0-52.0) % MCV (80.0-100.0) fL MCH (25.0-34.0) pg MCHC (32.0-36.0) g/dL RDW Std Deviation (36.4-46.3) fL RDW Coeff of Floyd (11.5-14.5) % Plt Count (130-400) K/uL MPV (9.4-12.4) fL Immature Gran % (Auto) % Neut % (Auto) % Lymph % (Auto) % P[place] % (Auto) % Eos % (Auto) % Baso % (Auto) % Neut # (Auto) (1.40-6.50) K/uL Lymph # (Auto) (1.2-3.4) K/uL P[place] # (Auto) (0.11-0.59) K/uL Eos # (Auto) (0-0.50) K/uL Baso # (Auto) (0-0.2) K/uL Immature Gran # (Auto) (0.01-0.20) K/uL PT 11.7 INR 1.1 APTT 28.2 PTT Ratio 1.0 Sodium (136-145) mmol/L Potassium (3.5-5.1) mmol/L Chloride (98-107) mmol/L Carbon Dioxide (21-32) mmol/L Anion Gap (3-11) BUN (6-23) mg/dl Creatinine (0.6-1.4) mg/dl Est Cr Clr Drug Dosing ml/min Est GFR ( Amer) ml/min Est GFR (Non-Af Amer) ml/min BUN/Creatinine Ratio (10-20) Glucose (70-99(Fasting)) mg/dl Calcium (8.6-10.3) mg/dl Total Bilirubin (0.2-1.0) mg/dl AST (13-39) U/L ALT (7-52) U/L Alkaline Phosphatase (34-104) U/L Troponin I High Sens (0-20) pg/ml Total Protein (6.0-8.3) gm/dl Albumin (3.4-5.0) gm/dl Globulin (2.5-4.0) gm/dl Albumin/Globulin Ratio (0.9-2) Administered Medications Atorvastatin Calcium (Atorvastatin 10 Mg Tab) 10 mg PO HS TIMMY Stop: 06/23/22 21:15 Last Admin: 04/19/23 22:17 Dose: 10 mg Documented By: YNES Enoxaparin Sodium (Enoxaparin Inj 40 Mg/0.4 Ml Syr) 40 mg SQ Q24H TIMMY Stop: 06/23/22 20:59 Last Admin: 05/24/22 22:16 Dose: Not Given Documented By: YNES Famotidine (Famotidine 40 Mg Tablet) 40 mg PO HS TIMMY Stop: 06/23/22 21:15 Last Admin: 05/24/22 22:17 Dose: 40 mg Documented By: YNES Flecainide Acetate (Flecainide Acetate 100 Mg Tablet) 100 mg PO Q12H TIMMY Stop: 06/23/22 20:59 Last Admin: 05/24/22 22:17 Dose: 100 mg Documented By: YNES Metoprolol Succinate (Metoprolol Succ 50mg Ext Rel Tab) 100 mg PO BID TIMMY Stop: 06/23/22 21:15 Last Admin: 05/24/22 22:18 Dose: 100 mg Documented By: YNES Pantoprazole Sodium (Pantoprazole 40 Mg Tab) 40 mg PO BID TIMMY Stop: 06/23/22 21:15 Last Admin: 05/24/22 22:17 Dose: 40 mg Documented By: YNES Imaging Data Radiologist's Impression: Chest X-Ray 05/24/22 13:51 XR chest 1V not portable CLINICAL HISTORY: Chest pain, nonspecific TECHNIQUE: Single frontal radiograph of the chest was obtained. Comparison: Comparison is made to chest radiograph 02/13/2022 FINDINGS: Dual lead pacemaker is seen. Cardiomegaly is noted. The aortic arch is calcified. The lungs are clear. No evidence of pleural effusion or pneumothorax. IMPRESSION: No acute chest disease. Cardiomegaly is noted. ACT 112: Negative or not required by law. Electronically signed by: Mykel Brar M.D. 05/24/2022 2:25 PM Discharge Plan Visit Data Chief Complaint: Shortness of Breath/Dyspnea Stated Complaint: SOB, BLURRED VISION ED Provider: Rao Tavera Discharge Problem: SOB (shortness of breath) Patient Disposition: Admitted As Inpatient Discharge Instructions Interventions: ED Discharge Assessment Last Done: 05/24/22 20:50
--- NOTE | 2022-05-24 16:43 | History & Physical Report ---
Date of Service May 24, 2022 Assessment & Plan (1) MCKINLEY (dyspnea on exertion): Plan: -Admit to the PCU on tele -The patient is currently afebrile, hemodynamically stable, and stable on RA -Has had progressive MCKINLEY, relieved at rest for the past 6 months, was recently seen by Dr. Cruz who was working on coordinating a catheterization for further assessment -Symptoms have continued to progress, Cardiology was contacted by the ED and recommended admission for heart cath tomorrow -The patient is without other sources of SOB at this time including signs of infection, consolidations/fluid on CXR, pleuritic chest pain or vitals to suggest PE -Initial high sen trop and ECG are WNL, will continue to monitor on tele and trend trops -Cardiology consult placed -Will make NPO at midnight for cath tomorrow -If any worsening symptoms or concerning troponin elevations would reach out to cardiology to see if cath would need to be completed sooner -BL SCD's and Sub-Q lovenox for DVT PPX -AM CBC, CMP, PT/INR (2) Hypertension: Plan: -Stable -Continue amlodipine-Valsartan (3) Atrial fibrillation: Plan: -S/P cardioversion with flecainide and watchman procedure -Not on anticoagulation due to previous life threatening GI bleed on Eliquis. -Continue flecainide and metoprolol (4) Hyperlipidemia: Plan: -Conitnue statin (5) Hypothyroidism: Plan: -Continue levothyroxine (6) Gout: Plan: -Continue allopurinol Plan The patient was discussed with Dr. Murphy at the time of the admission History of Present Illness Chief Complaint: SOB Primary Care Provider: Dylan Christianson DO Bridger is an 86 year old male with a PMH significant for CAD, complete heart block S/P dual chamber pacemaker placement, afib S/P cardioversion with flecainide and S/P watchman procedure, HTN, hyperlipidemia, hypothyroidism, and gout who presented to the [facility] ED on 05/24/22 with a chief complaint of ongoing MCKINLEY. In the ED the patient's vitals were stable. Labs including CBC, CMP, and initial high sen trop were WNL. Chest xray was read as "No acute chest disease. Cardiomegaly is noted." and ECG was without acute ST segment or T-wave changes. The patient was seen by on 05/22 for his cardiac history. Due to the patient's ongoing and progressive MCKINLEY Dr. Lo was working on coordinating a Cardiac Catheterization. Dr. Montano was called today as he is validation architect for Cardiology and recommended admission with plans for cardiac cath tomorrow. At the time of the exam the patient was lying in bed in no acute distress with his sitting bedside. He states that he has had ongoing MCKINLEY for the past 6 months or so. He clarifies that the SOB is only with moderate to severe exertion and is relieved at rest, he is always asymptomatic at rest. After he had covid 19 last January he states that he symptoms seemed to worsen. He denies fever, chills, chest pain, heart palpitations, cough, nausea, vomiting, pleuritic chest pain, abd pain, dysuria, hematuria, melena, LE swelling and trauma. He denies recent medication changes and has been compliant with his medications. He notes that he was SOB after walking to the mailbox and back this am and experiencing intermittent blurry vision while watching TV earlier today. The blurry vision has been ongoing for "years" and is followed by his PCP and Ophthalmology. He is a full code and wishes for his to make medical decisions for him if he cannot make them himself. Please refer to Dr. Murphy's attestation for any changes to the treatment plan. Allergies Allergy/AdvReac Type Severity Reaction Status Date / Time No Known Drug Allergies Allergy Verified 05/24/22 13:21 Home Medications Medication Instructions Recorded Confirmed Type cyanocobalamin (vitamin B-12) 1,000 mcg PO PM 06/20/21 05/24/22 History 1,000 mcg capsule flecainide 100 mg tablet 100 mg PO Q12H #180 tabs 07/07/21 05/24/22 Rx amoxicillin 500 mg tablet 2,000 mg PO PRN Antibiotic 11/07/21 05/24/22 Rx prophylaxis #4 tabs aspirin 81 mg tablet,delayed 81 mg PO DAILY 12/02/21 05/24/22 History release famotidine 40 mg tablet 40 mg PO HS #90 tabs 12/21/21 05/24/22 Rx pantoprazole 40 mg tablet,delayed 40 mg PO BID #60 tabs 01/24/22 05/24/22 Rx release (Protonix) allopurinol 300 mg tablet 300 mg PO QAM #90 tabs 02/01/22 05/24/22 Rx metoprolol succinate 100 mg 100 mg PO BID #90 tabs 04/28/22 05/24/22 Rx tablet,extended release 24 hr amlodipine 5 mg-valsartan 320 mg 1 tab PO DAILY 05/24/22 05/24/22 History tablet atorvastatin 10 mg tablet 10 mg PO HS 05/24/22 05/24/22 History levothyroxine 112 mcg tablet 112 mcg PO QAM 05/24/22 05/24/22 History (Synthroid) Past Med/Surg History Medical History (Updated 05/24/22 @ 17:21 by Christiano Borges PA-C) Abnormal CT scan, colon Aortic atherosclerosis Atrial fibrillation pacer/ cardioversion/ meds Atrioventricular block, complete BPH (benign prostatic hyperplasia) Diverticulosis Erectile dysfunction History of cardioversion Hx of gastric ulcer Hx of gout Hx of lower gastrointestinal bleeding no longer on Eliquis due to this > resolved Hyperlipidemia Hypertension Hypothyroidism Inguinal hernia Macrocytic anemia Nummular eczema Prediabetes Premature ventricular contractions (PVCs) (VPCs) Sick sinus syndrome S/p Medtronic pacer placement (2002) Sinus node dysfunction Tubular adenoma of colon Surgical History H/O colonoscopy 08/2021 repeat 3 yrs History of cataract surgery RT/LEFT History of esophagogastroduodenoscopy (EGD) 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 CRUZ History of tonsillectomy and adenoidectomy "TONSILS REMOVED 2X" S/P hernia repair Family History Father Cardiac disorder Mother Pneumonia Other No family history of adverse response to anesthesia Denies family history of Ovarian cancer Prostate cancer Breast cancer Lung cancer Colorectal cancer Social History Smoking Status: Former smoker Second Hand Exposure: No; Do You Dip or Chew Tobacco: No; Hx Alcohol Use: Yes Alcohol type: beer Alcohol Intake Frequency: 4 or More x per/Week Hx Substance Use: No Preferred Language: Jordanian Communication Ability: Effective Visual Impairment: No Limitations Hearing Ability: Hard of Hearing Chandelier Maker Required: No Beliefs That Will Affect Care: None marital status: Current Living Situation: Spouse current occupational status: retired Other Information That Helps Us Care for You: No Feels Safe at Home: Yes Safety Concerns: Feels Safe At This Time Childhood Exposure to Second-Hand Smoke: No Dental Care, Regularly: Yes Physical Activity Frequency: Daily Seatbelt Use: always Sunscreen Use: No Assistive Devices: Hearing Aid - Bilateral Assistive Devices Comment: hearing aids taken home by Physical Exam Physical Exam: Physical Exam: General: In no acute distress, stated age, well-nourished, good hygiene HEENT: Normocephalic, atraumatic, no scleral icterus, pupils around round, symmetrical, and reactive to light, moist mucus membranes, trachea midline, no thyromegaly Chest/Pulm: Pacemaker located in the left upper chest is without signs of infection or irritation, No respiratory distress, symmetrical chest expansion, clear breath sounds throughout Cardiac: regular rate and rhythm, systolic murmur noted Abdomen: Negative for ascites and bruising, normoactive bowel sounds, soft, non-tender to palpation throughout Musculoskeletal: Symmetrical and without signs of acute trauma, upper and lower extremities with full ROM, no atrophy, spasticity, or flaccidity Extremities: Radial, dorsalis pedis, and posterior tibial pulses are intact and symmetrical, no edema noted in the BL LE's Skin: Warm, dry, no rashes , lesions, or scars noted Neuro: Alert and oriented to person, place, month, year, and president, no focal defects, CN II-XII tested and intact, finger to nose test negative, no tremors noted Psych: No acute distress, calm and cooperative during the exam Results & Data Results & Data Vital Signs (Past 12 Hours) Vital Signs Temp Pulse Pulse Resp BP BP Pulse Ox 05/24/22 15:26 96 05/24/22 15:20 63 05/24/22 15:15 96 05/24/22 15:14 61 18 114/80 97 05/24/22 13:48 36.6 C 89 18 129/86 96 O2 Del Method 05/24/22 15:26 Room Air 05/24/22 15:20 05/24/22 15:15 Room Air 05/24/22 15:14 Room Air 05/24/22 13:48 Room Air Laboratory Results Abnormal lab results 05/24/22 05/24/22 Range/Units 15:10 15:10 RBC 4.24 L (4.70-6.10) M/uL Hct 41.9 L (42.0-52.0) % MCH 34.9 H (25.0-34.0) pg RDW Std Deviation 47.8 H (36.4-46.3) fL Sodium 135 L (136-145) mmol/L Glucose 109 H (70-99(Fasting)) mg/dl Diagnostic Findings Chest X-Ray 05/24/22 13:51 XR chest 1V not portable CLINICAL HISTORY: Chest pain, nonspecific TECHNIQUE: Single frontal radiograph of the chest was obtained. Comparison: Comparison is made to chest radiograph 02/13/2022 FINDINGS: Dual lead pacemaker is seen. Cardiomegaly is noted. The aortic arch is calcified. The lungs are clear. No evidence of pleural effusion or pneumothorax. IMPRESSION: No acute chest disease. Cardiomegaly is noted. ACT 112: Negative or not required by law. Electronically signed by: Mykel Brar M.D. 05/24/2022 2:25 PM ECG Additional Comments: AV dual-paced rhythm with prolonged AV conduction with occasional ventricular- paced complexes Abnormal ECG When compared with ECG of 13-JUN-2021 23:06, Vent. rate has increased BY 23 BPM Code Status & VTE Plan Code Status FUll code VTE Prophylaxis Plan VTE Prophylaxis will be ordered: Yes Supervising Physician Co-Signing Physician Notes I personally saw and examined the patient. I verified all angulo points and agree with Christiano Borges PA-C with the following exceptions and/or additions: 86 year old presents to the ER with shortness of breath on exertion. Progressively getting worse since COVID-19 in January. O/E A&Ox3, HS RRR, no murmurs, Chest fine crackles posteriorly, no wheezing, Abdo S NT A/P Shortness of breath on exertion - complete cardiac workup with planned cardiac catheterization per cardiology recommendation. Suspect some degree of pulmonary fibrosis based on prior CT A/P and exam - patient has pulm follow up on Sunday. Given he is on room air suspect any pulm workup can be done as outpatient if not thought to be cardiac. PG Care Time/CCT Total # of Minutes Spent Total Time Spent with Patient: Total time spent is greater than 50% in coordination of care (as documented) at patient's floor/unit and/or counseling patient: Coding [place] [address] INT INP/OBS CARE 375MIN Patient Type Established Medical Decision Making High Complexity Diagnoses MCKINLEY (dyspnea on exertion) R06.09 Hypertension I10 Hypertension type: primary hypertension Atrial fibrillation I48.91 Hyperlipidemia E78.5 Hypothyroidism E03.9 Gout M10.9 (2) Hypertension Hypertension type: primary hypertension Qualified Code(s): I10 - Essential (primary) hypertension
[2022-05-24] MEDS ORDERED: ACETAMINOPHEN 325 MG TAB PO PRN (17:07)
[2022-05-24 18:25] LABS: INR 1.1 (0.9-1.1); Partial Thromboplastin Time 28.2 Seconds (21.0-31.0); Prothrombin Time 11.7 Seconds (9.0-12.0)
[2022-05-24] MEDS ORDERED: ENOXAPARIN INJ 40 MG/0.4 ML SYR SQ SCH (21:00)
[2022-05-24] MEDS ORDERED: FAMOTIDINE 40 MG TABLET PO SCH (21:16)
[2022-05-24] MEDS ORDERED: ATORVASTATIN 10 MG TAB PO SCH (21:16)
[2022-05-24] MEDS: PANTOprazole 40 MG TAB PO SCH (22:17)
[2022-05-24] MEDS: FLECAINIDE ACETATE 100 MG TABLET PO SCH (22:17)
[2022-05-24] MEDS: METOPROLOL SUCC 50MG EXT REL TAB PO SCH (22:18)
[2022-05-25 06:08] LABS: Basophils # (auto) 0.07 K/uL (0-0.2); Basophils % (auto) 0.8 %; Eosinophils # (auto) 0.11 K/uL (0-0.50); Eosinophils % (auto) 1.2 %; Hematocrit (blood only) 40.3 % (42.0-52.0); Hemoglobin 14.2 g/dl (14.0-18.0); Immature Granulocytes # (auto) 0.05 K/uL (0.01-0.20); Immature Granulocytes % (auto) 0.5 %; Lymphocytes # (auto) 2.15 K/uL (1.2-3.4); Lymphocytes % (auto) 23.4 %; Mean Corpuscular Hemoglobin 34.8 pg (25.0-34.0); Mean Corpuscular Hgb Conc 35.2 g/dL (32.0-36.0); Mean Corpuscular Volume 98.8 fL (80.0-100.0); Mean Platelet Volume 9.7 fL (9.4-12.4); Monocytes # (auto) 0.74 K/uL (0.11-0.59); Monocytes % (auto) 8.1 %; Neutrophils # (auto) 6.06 K/uL (1.40-6.50); Platelet Count 195 K/uL (130-400); RDW Coefficient of Variation 13.1 % (11.5-14.5); RDW Standard Deviation 47.3 fL (36.4-46.3); Red Blood Count 4.08 M/uL (4.70-6.10); White Blood Count 9.18 K/ul (4.8-10.8)
[2022-05-25 06:19] LABS: INR 1.1 (0.9-1.1); Prothrombin Time 11.7 Seconds (9.0-12.0)
[2022-05-25 06:29] LABS: Albumin Level 3.6 gm/dl (3.4-5.0); Bilirubin,Total 0.9 mg/dl (0.2-1.0); Calcium 9.2 mg/dl (8.6-10.3); Magnesium 2.1 mg/dl (1.7-2.4); Potassium 4.3 mmol/L (3.5-5.1)
[2022-05-25] MEDS ORDERED: LEVOTHYROXINE SODIUM 112 MCG TABLET PO SCH (06:30)
[2022-05-25 06:35] LABS: Albumin Globulin Ratio 1.1 (0.9-2); BUN Creatinine Ratio 14.8 (10-20); Creatinine Clr Calc Pharmacy 45.1 ml/min; Est GFR (African American) 62.7 ml/min; Est GFR (Non-African American) 54.1 ml/min; Globulin 3.3 gm/dl (2.5-4.0); Total Protein 6.9 gm/dl (6.0-8.3)
[2022-05-25] MEDS: FLECAINIDE ACETATE 100 MG TABLET PO SCH (08:36)
[2022-05-25] MEDS: PANTOprazole 40 MG TAB PO SCH (08:36)
[2022-05-25] MEDS: METOPROLOL SUCC 50MG EXT REL TAB PO SCH (08:37)
[2022-05-25] MEDS ORDERED: allopurinoL 300 MG TAB PO SCH (09:00)
[2022-05-25] MEDS ORDERED: VALSARTAN 80 MG TAB PO SCH (09:00)
[2022-05-25] MEDS ORDERED: ASPIRIN 81 MG ECTAB PO SCH (09:00)
[2022-05-25] MEDS ORDERED: amLODIPine BESYLATE 5 MG TAB PO SCH (09:00)
--- NOTE | 2022-05-25 10:20 | Electrocardiogram Report ---
Test Reason : Blood Pressure : / mmHG Vent. Rate : 083 BPM Atrial Rate : 042 BPM P-R Int : 330 ms QRS Dur : 162 ms QT Int : 524 ms P-R-T Axes : 082 -72 105 degrees QTc Int : 615 ms AV dual-paced rhythm with prolonged AV conduction with occasional ventricular-paced complexes Abnormal ECG When compared with ECG of 13-JUN-2021 23:06, Vent. rate has increased BY 23 BPM Confirmed by Amauri Montano ([id number]) on 05/25/2022 10:20:03 AM Referred By: Maddie Nixon Confirmed By:Torin Montano
[2022-05-25] MEDS ORDERED: fentaNYL citrate PF 100 MCG/2 ML VIAL ONE (12:48)
[2022-05-25] MEDS ORDERED: niCARdipine HCL INJ 2.5 MG/ML 10 ML AMP ONE (12:48)
[2022-05-25] MEDS ORDERED: HEPARIN (PORCINE) 1000 UNIT/ML 10 ML (CATH LAB USE ONLY) ONE (12:48)
[2022-05-25] MEDS ORDERED: MIDAZOLAM HCL 1 MG/ML 2ML VIAL ONE (12:48)
[2022-05-25] MEDS ORDERED: NITROGLYCERIN/D5W 100MCG/ML 20ML SYR ONE (12:49)
--- NOTE | 2022-05-25 13:17 | Cardiology Consultation ---
Date of Consultation May 25, 2022 Assessment & Plan (1) Atrial fibrillation: (2) SOB (shortness of breath): (3) Coronary artery calcification: (4) Cardiomyopathy: Plan 1. Dyspnea on exertion: Unclear etiology. Possibly related to mildly reduced LV systolic function. However, filling pressures were normal on examination today. No evidence of volume overload. No elevated pulmonary pressures. Coronary arteries were normal without obstructive disease. He is scheduled to see a drawing box tender in a few days. In the absence of a defined pulmonary problem consideration could be given to an upgrade of his RV apical pacemaker. #2. Atrial fibrillation: Paroxysmal. Doing well on flecainide and beta- blockade. Otherwise evidence of infarct on his perfusion study, no coronary disease today. No regional wall motion abnormalities on his echocardiogram. However, caution should be used with continued class Ic antiarrhythmic in the setting of structural heart disease. A switch to amiodarone can be entertained. Not on anticoagulation secondary to gastrointestinal hemorrhage. Left atrial appendage occlusion has been performed. 3. Cardiomyopathy: Unclear etiology. This appears to be nonischemic. Possibly related to RV apical pacing. On metoprolol succinate. On ARB. More aggressive therapy would include the addition of an SGLT2 inhibitor History of Present Illness Reason for Consultation: Dyspnea on exertion Requesting Physician: Shanell Attending Physician: Huan Reece History of Present Illness The patient is an 86-year-old gentleman with an extensive cardiac history to include atrial fibrillation, complete heart block and prior implantation of a dual-chamber permanent pacemaker. Patient suffered a COVID-19 infection a few months ago. Lately he has been struggling with dyspnea on exertion. He states that this may have been present before his viral infection, but certainly become worse over the past several weeks. He does not appear to have significant difficulty at rest. The symptoms are not associated with chest pain, dizziness or palpitations. However, with activity he commonly will become quite winded and need to rest. The symptoms resolved within a few minutes and he is able to continue his activity. He did not describe orthopnea. Allergies Allergy/AdvReac Type Severity Reaction Status Date / Time No Known Drug Allergies Allergy Verified 05/24/22 13:21 Home Medications Medication Instructions Recorded Confirmed Type cyanocobalamin (vitamin B-12) 1,000 mcg PO PM 06/20/21 05/24/22 History 1,000 mcg capsule flecainide 100 mg tablet 100 mg PO Q12H #180 tabs 07/07/21 05/24/22 Rx amoxicillin 500 mg tablet 2,000 mg PO PRN Antibiotic 11/07/21 05/24/22 Rx prophylaxis #4 tabs aspirin 81 mg tablet,delayed 81 mg PO DAILY 12/02/21 05/24/22 History release famotidine 40 mg tablet 40 mg PO HS #90 tabs 12/21/21 05/24/22 Rx pantoprazole 40 mg tablet,delayed 40 mg PO BID #60 tabs 01/24/22 05/24/22 Rx release (Protonix) allopurinol 300 mg tablet 300 mg PO QAM #90 tabs 02/01/22 05/24/22 Rx metoprolol succinate 100 mg 100 mg PO BID #90 tabs 04/28/22 05/24/22 Rx tablet,extended release 24 hr amlodipine 5 mg-valsartan 320 mg 1 tab PO DAILY 05/24/22 05/24/22 History tablet atorvastatin 10 mg tablet 10 mg PO HS 05/24/22 05/24/22 History levothyroxine 112 mcg tablet 112 mcg PO QAM 05/24/22 05/24/22 History (Synthroid) Patient History Medical History (Updated 05/25/22 @ 18:38 by Amauri Montano MD) Abnormal CT scan, colon Aortic atherosclerosis Atrial fibrillation pacer/ cardioversion/ meds Atrioventricular block, complete BPH (benign prostatic hyperplasia) Diverticulosis Erectile dysfunction History of cardioversion Hx of gastric ulcer Hx of gout Hx of lower gastrointestinal bleeding no longer on Eliquis due to this > resolved Hyperlipidemia Hypertension Hypothyroidism Inguinal hernia Macrocytic anemia Nummular eczema Prediabetes Premature ventricular contractions (PVCs) (VPCs) Sick sinus syndrome S/p Medtronic pacer placement (2002) Sinus node dysfunction Tubular adenoma of colon Surgical History H/O colonoscopy 08/2021 repeat 3 yrs History of cataract surgery RT/LEFT History of esophagogastroduodenoscopy (EGD) 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 CRUZ History of tonsillectomy and adenoidectomy "TONSILS REMOVED 2X" S/P hernia repair Family History Father Cardiac disorder Mother Pneumonia Other No family history of adverse response to anesthesia Denies family history of Ovarian cancer Prostate cancer Breast cancer Lung cancer Colorectal cancer Social History Smoking Status: Former smoker Second Hand Exposure: No; Do You Dip or Chew Tobacco: No; Hx Alcohol Use: Yes Alcohol type: beer Alcohol Intake Frequency: 4 or More x per/Week Hx Substance Use: No Preferred Language: Lebanese Communication Ability: Effective Visual Impairment: No Limitations Hearing Ability: Hard of Hearing Pipe And Test Supervisor Required: No Beliefs That Will Affect Care: None marital status: Current Living Situation: Spouse current occupational status: retired Other Information That Helps Us Care for You: No Feels Safe at Home: Yes Safety Concerns: Feels Safe At This Time Childhood Exposure to Second-Hand Smoke: No Dental Care, Regularly: Yes Physical Activity Frequency: Daily Seatbelt Use: always Sunscreen Use: No Assistive Devices: None Assistive Devices Comment: hearing aids taken home by Review of Systems Review of Systems: Per HPI. No worsening peripheral edema or increasing abdominal girth. Physical Exam Physical Exam: The patient is alert and oriented. Mood and affect appeared normal. He answered all questions appropriately. HEENT: Pupils are equal and reactive to light and accommodation. Extraocular movements are intact. The sclerae are anicteric. Neuro: Cranial nerves intact Lungs: Clear to auscultation bilaterally. He has good air movement without use of accessory muscles. No rales wheezes or rhonchi. Cardiac: Heart demonstrates a regular rate and rhythm. Normal S1 and S2. No murmurs on examination. Pulses: The patient has palpable radial pulses bilaterally that are equal in intensity Extremities: There was no evidence of hypoperfusion. There is no cyanosis or clubbing. There is no edema. Skin: I did not appreciate any rashes on examination today. Atrial fibrillation Results & Data Vital Signs (Past 12 Hours) Vital Signs Temp Pulse Pulse Resp BP BP Pulse Ox 05/25/22 13:01 36.6 C 66 16 129/86 97 05/25/22 11:00 36.5 C 73 18 115/74 97 05/25/22 07:00 60 05/25/22 08:00 36.5 C 66 16 119/67 95 05/25/22 03:00 36.5 C 66 16 104/66 96 O2 Del Method 05/25/22 13:01 Room Air 05/25/22 11:00 Room Air 05/25/22 07:00 05/25/22 08:00 Room Air 05/25/22 03:00 Room Air Laboratory Results Abnormal Lab Results 05/25/22 05/25/22 05/25/22 00:42 05:50 05:50 WBC 9.18 RBC 4.08 L Hgb 14.2 Hct 40.3 L MCV 98.8 MCH 34.8 H MCHC 35.2 RDW Std Deviation 47.3 H RDW Coeff of Floyd 13.1 Plt Count 195 MPV 9.7 Immature Gran % (Auto) 0.5 Neut % (Auto) 66.0 Lymph % (Auto) 23.4 Barren % (Auto) 8.1 Eos % (Auto) 1.2 Baso % (Auto) 0.8 Neut # (Auto) 6.06 Lymph # (Auto) 2.15 Barren # (Auto) 0.74 H Eos # (Auto) 0.11 Baso # (Auto) 0.07 Immature Gran # (Auto) 0.05 PT 11.7 INR 1.1 POC pH POC pCO2 POC pO2 POC HCO3 POC Total CO2 POC Base Excess POC ABG O2 Sat Sodium Potassium Chloride Carbon Dioxide Anion Gap BUN Creatinine Est Cr Clr Drug Dosing Est GFR ( Amer) Est GFR (Non-Af Amer) BUN/Creatinine Ratio Glucose Calcium Magnesium Total Bilirubin AST ALT Alkaline Phosphatase Troponin I High Sens 11.3 Total Protein Albumin Globulin Albumin/Globulin Ratio 05/25/22 05/25/22 05/25/22 05:50 05:50 12:17 WBC RBC Hgb Hct MCV MCH MCHC RDW Std Deviation RDW Coeff of Floyd Plt Count MPV Immature Gran % (Auto) Neut % (Auto) Lymph % (Auto) Barren % (Auto) Eos % (Auto) Baso % (Auto) Neut # (Auto) Lymph # (Auto) Barren # (Auto) Eos # (Auto) Baso # (Auto) Immature Gran # (Auto) PT INR POC pH POC pCO2 POC pO2 POC HCO3 POC Total CO2 POC Base Excess POC ABG O2 Sat Sodium 138 Potassium 4.3 Chloride 104 Carbon Dioxide 29 Anion Gap 5 BUN 18 Creatinine 1.22 Est Cr Clr Drug Dosing 45.1 Est GFR ( Amer) 62.7 Est GFR (Non-Af Amer) 54.1 BUN/Creatinine Ratio 14.8 Glucose 96 Calcium 9.2 Magnesium 2.1 Total Bilirubin 0.9 AST 19 ALT 16 Alkaline Phosphatase 76 Troponin I High Sens 10.1 8.4 Total Protein 6.9 Albumin 3.6 Globulin 3.3 Albumin/Globulin Ratio 1.1 05/25/22 05/25/22 13:56 14:02 WBC RBC Hgb Hct MCV MCH MCHC RDW Std Deviation RDW Coeff of Floyd Plt Count MPV Immature Gran % (Auto) Neut % (Auto) Lymph % (Auto) Barren % (Auto) Eos % (Auto) Baso % (Auto) Neut # (Auto) Lymph # (Auto) Barren # (Auto) Eos # (Auto) Baso # (Auto) Immature Gran # (Auto) PT INR POC pH 7.36 7.39 POC pCO2 49 H 40 POC pO2 < 32 L 65 L POC HCO3 27 H 24 POC Total CO2 29 25 POC Base Excess 2.0 H -1.0 POC ABG O2 Sat 56.0 L 92.0 Sodium Potassium Chloride Carbon Dioxide Anion Gap BUN Creatinine Est Cr Clr Drug Dosing Est GFR ( Amer) Est GFR (Non-Af Amer) BUN/Creatinine Ratio Glucose Calcium Magnesium Total Bilirubin AST ALT Alkaline Phosphatase Troponin I High Sens Total Protein Albumin Globulin Albumin/Globulin Ratio Diagnostic Findings Chest x-ray obtained at the time admission not reveal acute cardiopulmonary disease. Myocardial perfusion study performed 03/24/2022 revealed a fixed inferior defect consistent with old inferior myocardial infarction. No ischemia. Echocardiogram obtained 04/05/2022: Mild to moderate reduced LV systolic function with ejection fraction of 40 to 45%. Moderate right atrial dilation. Mild mitral regurgitation. Right left heart catheterization performed today. Normal pulmonary pressures. Normal left ventricular filling pressures and wedge pressure. Some discrepancy regarding the cardiac output between thermodilution and Soraya, but possibly mildly reduced. No significant obstructive coronary disease. ECG Additional Comments: EKG demonstrated AV sequential pacing. PG Care Time/CCT Total # of Minutes Spent Total Time Spent with Patient: Total time spent is greater than 50% in coordination of care (as documented) at patient's floor/unit and/or counseling patient: Coding Level of Care Code 80931 INT INP/OBS CARE 3/75MIN Diagnoses Atrial fibrillation I48.91 SOB (shortness of breath) R06.02 Coronary artery calcification I25.10; I25.84 Cardiomyopathy I42.9
--- NOTE | 2022-05-25 13:17 | Pre Anesthesia Assessment ---
Date of Service May 25, 2022 Pre Sedation Assessment Vital Signs Temp Pulse Pulse Resp BP BP BP 05/25/22 13:01 36.6 C 66 16 129/86 05/25/22 11:00 36.5 C 73 18 115/74 05/25/22 07:00 60 05/25/22 08:00 36.5 C 66 16 119/67 05/25/22 03:00 36.5 C 66 16 104/66 05/24/22 22:00 63 05/24/22 22:42 36.5 C 17 130/86 05/24/22 21:44 36.3 C L 87 17 137/93 05/24/22 20:50 77 18 05/24/22 19:12 62 05/24/22 17:30 19 05/24/22 17:20 14 05/24/22 17:10 21 05/24/22 17:00 20 05/24/22 16:50 18 05/24/22 16:40 22 05/24/22 16:30 19 05/24/22 16:20 60 19 05/24/22 16:10 62 17 05/24/22 16:00 62 20 05/24/22 15:52 61 18 05/24/22 15:40 60 15 05/24/22 15:30 60 13 05/24/22 15:20 63 18 05/24/22 15:16 63 18 05/24/22 15:26 05/24/22 15:20 63 05/24/22 15:15 05/24/22 15:14 61 18 114/80 05/24/22 13:48 36.6 C 89 18 129/86 Pulse Ox O2 Del Method 05/25/22 13:01 97 Room Air 05/25/22 11:00 97 Room Air 05/25/22 07:00 05/25/22 08:00 95 Room Air 05/25/22 03:00 96 Room Air 05/24/22 22:00 05/24/22 22:42 95 Room Air 05/24/22 21:44 97 Room Air 05/24/22 20:50 98 Room Air 05/24/22 19:12 05/24/22 17:30 05/24/22 17:20 05/24/22 17:10 05/24/22 17:00 05/24/22 16:50 05/24/22 16:40 05/24/22 16:30 96 05/24/22 16:20 94 05/24/22 16:10 97 05/24/22 16:00 96 05/24/22 15:52 05/24/22 15:40 96 05/24/22 15:30 05/24/22 15:20 05/24/22 15:16 98 05/24/22 15:26 96 Room Air 05/24/22 15:20 05/24/22 15:15 96 Room Air 05/24/22 15:14 97 Room Air 05/24/22 13:48 96 Room Air Cardiovascular + regular rate and + regular rhythm Respiratory + respiratory effort normal Pre-Sedation Airway Assessment Smoking Status: Former smoker Hx Sleep Apnea: No Hx Difficult Intubation: No Short, Thick Neck: No Thyromental Distance: > or= 3.5 Finger Breadths Oral Cavity: + WNL Mallampati Class: II ASA: ASA3 NPO Status Date of Last Intake of Fluids: 05/25/22 Time of Last Intake of Fluids: 08:00 Last Oral Intake of Fluids Comment: sips with pills Date of Last Intake of Solid Food: 05/24/22 Time of Last Intake of Solid Foods: 18:00 Procedure Planning Contraindications for Sedation: none Current Medications Reviewed: Yes Notes The planned sedation has been discussed with the patient. Informed Consent was obtained. I have identified the patient, determined the appropriateness of sedation and have assessed the patient immediately prior to the procedure. All medicine(s) and interventions are by my order.
[2022-05-25] MEDS ORDERED: DOPamine 400MG / 250ML D5W (Cath Lab Use ONLY) IV ONE (14:06)
--- NOTE | 2022-05-25 14:26 | Post Anesthesia Assessment ---
Date of Service May 25, 2022 Post Sedation Assessment Vital Signs Temp Pulse Pulse Resp BP BP Pulse Ox 05/25/22 13:01 36.6 C 66 16 129/86 97 05/25/22 11:00 36.5 C 73 18 115/74 97 05/25/22 07:00 60 05/25/22 08:00 36.5 C 66 16 119/67 95 05/25/22 03:00 36.5 C 66 16 104/66 96 05/24/22 22:00 63 05/24/22 22:42 36.5 C 17 130/86 95 05/24/22 21:44 36.3 C L 87 17 137/93 97 05/24/22 20:50 77 18 98 05/24/22 19:12 62 05/24/22 17:30 19 05/24/22 17:20 14 05/24/22 17:10 21 05/24/22 17:00 20 05/24/22 16:50 18 05/24/22 16:40 22 05/24/22 16:30 19 96 05/24/22 16:20 60 19 94 05/24/22 16:10 62 17 97 05/24/22 16:00 62 20 96 05/24/22 15:52 61 18 05/24/22 15:40 60 15 96 05/24/22 15:30 60 13 05/24/22 15:20 63 18 05/24/22 15:16 63 18 98 05/24/22 15:26 96 05/24/22 15:20 63 05/24/22 15:15 96 05/24/22 15:14 61 18 114/80 97 O2 Del Method 05/25/22 13:01 Room Air 05/25/22 11:00 Room Air 05/25/22 07:00 05/25/22 08:00 Room Air 05/25/22 03:00 Room Air 05/24/22 22:00 05/24/22 22:42 Room Air 05/24/22 21:44 Room Air 05/24/22 20:50 Room Air 05/24/22 19:12 05/24/22 17:30 05/24/22 17:20 05/24/22 17:10 05/24/22 17:00 05/24/22 16:50 05/24/22 16:40 05/24/22 16:30 05/24/22 16:20 05/24/22 16:10 05/24/22 16:00 05/24/22 15:52 05/24/22 15:40 05/24/22 15:30 05/24/22 15:20 05/24/22 15:16 05/24/22 15:26 Room Air 05/24/22 15:20 05/24/22 15:15 Room Air 05/24/22 15:14 Room Air Recovery Score Activity: Moves 4 extremities Respiration: Deep Breath/Cough Circulation: +/-20% PreAnes Value Consciousness: Fully Awake Oxygen Saturation: > 92% On Room Air Discharge Sedation Level of Care: Fast Track Phase II Post Sedation Plan On clinical assessment, the patient appears to have tolerated the sedation without complications. Patient is recovering as anticipated. Patient will continue to be monitored by nursing and may be discharged when s edation discharge criteria are met per below protocol. Upon Completions of procedure up to 15 minutes continue every 5 minute vital signs and the P.A.R. score; then discharge to a Phase I or Fast Track to Phase II per the following guidelines: * Discharge Patient to appropriate Phase II area if PAR is 8 or greater or return to pre- procedure baseline. The post - procedure orders will be as directed. * If PAR score is less than 8 or not return to pre-procedure baseline then patient will follow Phase I monitoring till PAR is reached for Phase II. The Phase I may be done in procedure room or may call to secure a Phase I area. * If naloxone or flumazenil are used for reversal, hold in Phase I for continued monitoring from when last reversal dose was given for a minimum of 60 minutes or longer pending the nurse and/or physician discretion of patient condition before discharge to Phase II. Please call the Sedation Physician to re-evaluate and complete post-note for discharge to Phase II area. Do NOT discharge from procedure sedation or Phase 1 until post- sedation evaluation note is complete by procedure /sedation MD Sedation Discharge Instructions to be given to the patient at discharge to home.
--- NOTE | 2022-05-25 14:26 | Cardiac Catheterization ---
[facility] Data: Online Services Manager Cardiac Status Clinical evaluation leading to the procedure CAD Presenation: Sx unlikely to be ischemic Diagnostic Physicians Name: Amauri Montano MD Closure Device Recommendations: Medical Therapy and/or Counseling Cardiac Cath Procedure Full Procedure Date May 25, 2022 Pre-Procedure Diagnosis Pre-Procedure Diagnosis: Cardiothoracic Symptom AUC Score AUC Score: 7 Post-Procedure Diagnosis Post-Procedure Diagnosis: Normal Coronary Arteries Procedure(s) Performed Procedure(s) Performed: Coronary Angiography, Left Heart Cath and Right Heart Cath Rubber Engraver Amauri Montano MD Estimated Blood Loss Estimated Blood Loss: 7cc Medication(s) Medication(s): Fentanyl, Heparin, Lidocaine 1%, Nicardipine, Nitroglycerin and Versed Summary of Findings Procedure performed: left heart catheterization, right heart catheterization, selective coronary angiography Staff hydrology technician: Amauri Montano MD Indication: Procedure in detail: The patient was informed of the risks benefits and alternatives to the intended procedure, he understood such and wished to proceed. He was taken to the cardiac catheterization suite in a fasting state. Conscious sedation was administered per protocol and the patient was monitored electrocardiographically throughout today's procedure. right heart catheterization was performed with a balloon tipped catheter advanced through the right antecubital fossa. Hemodynamic measurements and thermodilution were performed prior to removal of the catheter and sheath. Hemostasis was achieved at the access site using manual pressure. The right wrist area was prepped and draped in usual sterile fashion. This area was anesthetized using subcutaneous administration of a lidocaine solution. The right radial artery was then accessed using Seldinger technique, and a arterial sheath was placed at this site over a guidewire. The sheath was used to facilitate passage of the cardiac catheter for coronary angiography and left heart catheterization. Coronary angiogram was then obtained in multiple orthogonal views prior to removal of the catheter. At the conclusion of the procedure the sheath was removed and hemostasis was achieved at the access site using manual pressure. The patient tolerated procedure well, there were no immediate complications. Equipment used: 5 Cypriot tiger 4 Findings: Coronary angiography left main: Left main was quite short and bifurcated immediately into the left anterior descending left circumflex arteries. No disease in this vessel Small ramus intermedius without disease Left anterior descending: Left anterior descending was a large vessel which reached the apex. It produced a small 1st diagonal a medium 2nd and 3rd diagonal branch. There was approximately 40% stenosis at the ostium of D1. No other significant obstructive disease Left circumflex: Left circumflex was a codominant vessel. It produced a large 1st OM branch and large 2nd OM. Some luminal irregularities but no discrete stenosis in this vessel Right coronary: The right coronary was a codominant vessel. There is some greg nal regularities in its midportion but no other significant disease Thermodilution cardiac output 2.5 liters/minute with an index 1.3, fixed cardiac output 4.02 liters/minute with an index of 2.14 impression: Co dominant coronary system No obstructive coronary disease No aortic stenosis Normal pulmonary pressures Normal left ventricular filling pressures Hemodynamics Rest Ao:: 64/44 mm of mercury Final Ao: 93/61 mm of mercury LV: 63/-3 mm of mercury RA: mean pressure of 1 mm Hg RV: 19/-3 mm of mercury PA: 19/3 mm of mercury PW: mean pressure 6 mm of mercury Recommendations Recommendations: Medical Therapy and/or Counseling Specimens Specimens: None Radiation Exposure (mGy) n/a Contrast (mls) 60 Procedural Complication(s) None Disposition Online Services Manager Holding/Recovery I attest to the content of the Intraoperative Record and any orders documented therein. Any exceptions are noted below. [facility] Card Cath Procedure Codes Cardiac Catheterization Procedure 1: Cardiovascular Cath Procedures: 58720 Coronaries & LHC (+/-LV) & RHC Moderate Sedation Procedure 1: Sedation/Anesthesia: 18692 Mod Sedation by the same physician;Init15 Min Child Age 5 & Up Procedure 2: Sedation/Anesthesia: 54990 Mod Sedation by the same physician; Ea [id number] Minutes PG Care Time/CCT Total # of Minutes Spent Total Time Spent with Patient: Total time spent is greater than 50% in coordination of care (as documented) at patient's floor/unit and/or counseling patient:
[2022-05-25 14:41] LABS: iSTAT Arterial Blood Gas HCO3 24 meg/L (19-24); iSTAT Arterial Blood Gas pCO2 40 mmHg (35-46); iSTAT Arterial Blood Gas pH 7.39 (7.35-7.45); iSTAT Arterial Blood Gas pO2 65 mmHg (80-95); iSTAT Carbon Dioxide 25 mmol/L (24-31)
[2022-05-25 14:41] LABS: iSTAT Arterial Blood Gas HCO3 27 meg/L (19-24); iSTAT Arterial Blood Gas pCO2 49 mmHg (35-46); iSTAT Arterial Blood Gas pH 7.36 (7.35-7.45); iSTAT Arterial Blood Gas pO2 < 32 mmHg (80-95); iSTAT Carbon Dioxide 29 mmol/L (24-31)
--- NOTE | 2022-05-25 15:31 | Discharge Summary ---
Date of Service May 25, 2022 Admission HPI Per Admitting Provider Bridger is an 86 year old male with a PMH significant for CAD, complete heart block S/P dual chamber pacemaker placement, afib S/P cardioversion with flecainide and S/P watchman procedure, HTN, hyperlipidemia, hypothyroidism, and gout who presented to the [facility] ED on 05/24/22 with a chief complaint of ongoing MCKINLEY. In the ED the patient's vitals were stable. Labs including CBC, CMP, and initial high sen trop were WNL. Chest xray was read as "No acute chest disease. Cardiomegaly is noted." and ECG was without acute ST segment or T-wave changes. The patient was seen by on 05/22 for his cardiac history. Due to the p atient's ongoing and progressive MCKINLEY Dr. Lo was working on coordinating a Cardiac Catheterization. Dr. Montano was called today as he is recreation establishment manager for Cardiology and recommended admission with plans for cardiac cath tomorrow. At the time of the exam the patient was lying in bed in no acute distress with his sitting bedside. He states that he has had ongoing MCKINLEY for the past 6 months or so. He clarifies that the SOB is only with moderate to severe exertion and is relieved at rest, he is always asymptomatic at rest. After he had covid 19 last January he states that he symptoms seemed to worsen. He denies fever, chills, chest pain, heart palpitations, cough, nausea, vomiting, pleuritic chest pain, abd pain, dysuria, hematuria, melena, LE swelling and trauma. He denies recent medication changes and has been compliant with his medications. He notes that he was SOB after walking to the mailbox and back this am and experiencing intermittent blurry vision while watching TV earlier today. The blurry vision has been ongoing for "years" and is followed by his PCP and Ophthalmology. He is a full code and wishes for his to make medical decisions for him if he cannot make them himself. Please refer to Dr. Murphy's attestation for any changes to the treatment plan. Principal Diagnosis sob Discharge Exam General: In no acute distress, stated age, well-nourished, good hygiene HEENT: Normocephalic, atraumatic, no scleral icterus, pupils around round, symmetrical, and reactive to light, moist mucus membranes, trachea midline, no thyromegaly Chest/Pulm: Pacemaker located in the left upper chest is without signs of infection or irritation, No respiratory distress, symmetrical chest expansion, clear breath sounds throughout Cardiac: regular rate and rhythm, systolic murmur noted Abdomen: Negative for ascites and bruising, normoactive bowel sounds, soft, non-tender to palpation throughout Musculoskeletal: Symmetrical and without signs of acute trauma, upper and lower extremities with full ROM, no atrophy, spasticity, or flaccidity Extremities: Radial, dorsalis pedis, and posterior tibial pulses are intact and symmetrical, no edema noted in the BL LE's Skin: Warm, dry, no rashes , lesions, or scars noted Neuro: Alert and oriented to person, place, month, year, and president, no focal defects, CN II-XII tested and intact, finger to nose test negative, no tremors noted Psych: No acute distress, calm and cooperative during the exam Discharge Data Allergies Allergy/AdvReac Type Severity Reaction Status Date / Time No Known Drug Allergies Allergy Verified 05/24/22 13:21 Consultations 05/24/22 16:46 Consult Cardiology Routine 05/24/22 16:58 ED Decision to Admit Stat Procedures Performed Operation Date: 05/25/22 12:30 Actual Procedures p Cath, Right and Left Heart - Amauri Montano MD Ordered Studies 05/25/22 13:30 CL Cath Imgs for PACS use only Urgent Hospital Course (1) MCKINLEY (dyspnea on exertion): -Admit to the PCU on tele -The patient is currently afebrile, hemodynamically stable, and stable on RA -Has had progressive MCKINLEY, relieved at rest for the past 6 months, was recently seen by Dr. Leon who was working on coordinating a catheterization for further assessment -Symptoms have continued to progress, Cardiology was contacted by the ED and recommended admission for heart cath tomorrow -The patient is without other sources of SOB at this time including signs of infection, consolidations/fluid on CXR, pleuritic chest pain or vitals to suggest PE -Initial high sen trop and ECG are WNL, will continue to monitor on tele and trend trops -Cardiology consult placed -Cardiac cath: was completed. Results were normal. Continue management as described below. (2) Hypertension: -Stable -Continue amlodipine-Valsartan (3) Atrial fibrillation: -S/P cardioversion with flecainide and watchman procedure -Not on anticoagulation due to previous life threatening GI bleed on Eliquis. -Continue flecainide and metoprolol (4) Hyperlipidemia: -Conitnue statin (5) Hypothyroidism: -Continue levothyroxine (6) Gout: -Continue allopurinol Plan \\ Total Time Total Time Spent Total Time Spent (In Minutes): 32 Discharge Plan Discharge Items Patient Disposition: Home - Self-Care Reason For Visit: MCKINELY Discharge Diagnosis: SOB on exertion Activity: Resume your previous activity Non-emergency contact: Primary Care Provider Call non-emergency contact if: you have any medication questions Follow-up/Referrals: Dylan Christianson, [Primary Care Provider] - (Appointment with Dr. Christianson on 05/31/22 @ 10:[address] Canales already scheduled on 05/29 @ 11:[address] Montano 06/14/22 @ 10:15) Diet: Heart Healthy Addtl Attending Provider Instructions: recommend followup with PCP in 1-2 weeks Followup with Pulmonary next week. Followup with Cardiology in 4 weeks Call your Primary Care doctor if any of the following symptoms or problems start or get worse: * Shortness of breath or difficulty breathing * Wake up at night short of breath * Chest pain * Cough * Swelling of your hands, feet, or legs * More fatigued or tired with your normal activity * Palpitations - sudden fast heart beats WEIGHT * Weigh yourself every morning after using the bathroom. * Use the same scale. * Wear the same amount of clothing. * Write your weight down on a chart. * Call your Primary Care doctor if you gain more than 2-3 pounds in 1-2 days. Take the following with you to your follow-up doctor appointments: * Weight Chart * Medication List * List of questions Do not drink excessive alcohol, beer or wine. Pending Studies at Discharge: No Stand-Alone Forms: My [employer], Smoking Cessation Medications and DC Order Prescriptions: Continued famotidine 40 mg tablet 40 mg PO HS Qty: 90 3RF allopurinol 300 mg tablet 300 mg PO QAM Qty: 90 3RF metoprolol succinate 100 mg tablet extended release 24 hr 100 mg PO BID Qty: 90 1RF flecainide 100 mg tablet 100 mg PO Q12H Qty: 180 3RF pantoprazole [Protonix] 40 mg tablet,delayed release (DR/EC) 40 mg PO BID Qty: 60 11RF amoxicillin 500 mg tablet 2,000 mg PO PRN Qty: 4 3RF Rx Instructions: Take 4 tablets 30 to 60 minutes before dental work cyanocobalamin (vitamin B-12) 1,000 mcg capsule 1,000 mcg PO PM aspirin 81 mg tablet,delayed release (DR/EC) 81 mg PO DAILY atorvastatin 10 mg tablet 10 mg PO HS levothyroxine [Synthroid] 112 mcg tablet 112 mcg PO QAM amlodipine-valsartan 5-320 mg tablet 1 tab PO DAILY Discharge Orders: Discharge Order (Routine); Ordered 05/25/22 Ordered By: Huan Reece Admission Data Admit Date/Time: 05/24/22 16:45 Attending Provider: Huan Reece Admit Provider: Wilfrido Murphy Primary Care Provider: Dylan Christianson Other Providers: Amauri Montano ; Wilfrido Murphy Other Interventions: Discharge Summary Assessment (RN) Last Done: 05/25/22 17:47 Coding Level of Care Code 43308 INP/OBS DISCH >30 MIN Diagnoses MCKINLEY (dyspnea on exertion) R06.09 Hypertension I10 Hypertension type: primary hypertension Atrial fibrillation I48.91 Hyperlipidemia E78.5 Hypothyroidism E03.9 Gout M10.9
== END 2022-05-25 18:44 | disposition home or self-care (01) | DRG 204 ==
LOC: ED 13:43 → 2S 16:45 → SUATTDRO 16:45 → 2S 20:50

== ENCOUNTER 2022-09-21 06:45 | Observation (INO) ==
--- NOTE | 2022-08-31 15:08 | PAT Medication Instructions ---
Medication Instructions Date of Service August 31, 2022 Home Medications Medication Instructions Recorded pantoprazole 40 mg tablet,delayed 40 mg PO BID #60 tabs 01/24/22 release (Protonix) allopurinol 300 mg tablet 300 mg PO QAM #90 tabs 02/01/22 carvedilol 25 mg tablet 25 mg PO BID #180 tabs 06/02/22 famotidine 40 mg tablet 40 mg PO BID #180 tabs 08/14/22 sacubitril 97 mg-valsartan 103 mg 1 tab PO BID #180 tabs 08/22/22 tablet (Entresto) cyanocobalamin (vitamin B-12) 1,000 mcg capsule 1,000 mcg PO QPM aspirin 81 mg tablet,delayed release 81 mg PO QAM pantoprazole 40 mg tablet,delayed release (Protonix) 40 mg PO BID allopurinol 300 mg tablet 300 mg PO QAM atorvastatin 10 mg tablet 10 mg PO HS levothyroxine 112 mcg tablet (Synthroid) 112 mcg PO QPM carvedilol 25 mg tablet 25 mg PO BID famotidine 40 mg tablet 40 mg PO BID sacubitril 97 mg-valsartan 103 mg tablet (Entresto) 1 tab PO BID empagliflozin 10 mg tablet (Jardiance) 10 mg PO QAM flecainide 100 mg tablet 100 mg PO BID ASK your prescriber and surgeon aspirin 81 mg tablet,delayed release 81 mg PO QAM STOP taking 3 days before surgery empagliflozin 10 mg tablet (Jardiance) 10 mg PO QAM DO NOT take the morning of surgery sacubitril 97 mg-valsartan 103 mg tablet (Entresto) 1 tab PO BID (unless told otherwise by prescriber) Take morning of surgery With a small sip of water, OTHERWISE NOTHING TO EAT OR DRINK AFTER MIDNIGHT: pantoprazole 40 mg tablet,delayed release (Protonix) 40 mg PO BID allopurinol 300 mg tablet 300 mg PO QAM carvedilol 25 mg tablet 25 mg PO BID famotidine 40 mg tablet 40 mg PO BID flecainide 100 mg tablet 100 mg PO BID Take evening before surgery cyanocobalamin (vitamin B-12) 1,000 mcg capsule 1,000 mcg PO QPM pantoprazole 40 mg tablet,delayed release (Protonix) 40 mg PO BID atorvastatin 10 mg tablet 10 mg PO HS levothyroxine 112 mcg tablet (Synthroid) 112 mcg PO QPM carvedilol 25 mg tablet 25 mg PO BID famotidine 40 mg tablet 40 mg PO BID flecainide 100 mg tablet 100 mg PO BID Other Notes If you have any questions please call us at [phone] or [phone] or [phone] or [phone]
--- NOTE | 2022-09-06 10:57 | Anesthesiology Consultation ---
Date of Service September 06, 2022 Assessment & Plan (1) Encounter for pre-operative examination: - pending [place] pulmonology clearances and surgeon response regarding patient requested sedation as planned anesthesia. - check BSG am DOS. - anesthesia complication: "CO2 retention." Patient reports no complications with sedation for colonoscopies and requests this as anesthesia plan for hernia repair. Case discussed in detail with Dr. Mtz who advised this can be attempted if surgeon agrees however patient will need pulmonology and cardiology clearances either way. Surgeon's office made aware. - cardiology clearance workload note 08/31/22 [place]: "...has had extensive cardiac evaluation and although his ejection fraction is somewhat reduced I do not see any reason to see him again. The anesthesiologist should be aware of his reduced ejection fraction but they likely saw that in the chart..." - PCP clearance 08/22/22 [place]: "...Per Dr. Lo, "he has had extensive cardiac evaluation and although his ejection fraction is somewhat reduced I do not see any reason to see him again. The anesthesiologist should be aware of his reduced ejection fraction." Patient is acceptable risk for surgery..." - Medtronic pacemaker. - heart failure visit 08/22/22 [place]: "...Dual-chamber pacemaker: Follows with Dr. Lo. Atrial fibrillation: He has remained out of atrial fibrillation since cardioversion on flecainide 100 mg twice a day. Has Watchman. Continue Flecainide...no proarrhythmia based on pacemaker monitoring...life-threatening bleed on Eliquis, he has a watchman in place, continue without anticoagulation...on aspirin and is doing well on that, he does not have coronary disease by catheterization so does not need it for that reason. Complete heart block...in complete heart block, his ventricular rate is controlled by the pacemaker and seems appropriate (AV pacing). Sinus node dysfunction: He has sinus node dysfunction as part of sick sinus syndrome, now he has had atrial fibrillation as well although well controlled on flecainide...pacing virtually all of the time in the atrium with an appropriate heart rate distribution when last evaluated. Coronary calcification: With coronary calcification we felt he likely had coronary artery disease and we did have him on aspirin and low-dose atorvastatin...does not have significant disease by catheterization, but probably does have the beginnings of coronary disease based on the calcification. Continue low-dose atorvastatin and he is also on aspirin...Dyspnea on exertion: Likely multifactorial- long COVID, ILD, LV dysfunction? This has improved somewhat in recent weeks. He does not notice any limitations at this time. Cardiomyopathy: EF 40-45% on 2022 echo. Nonischemic. His cardiomyopathy could due to COVID or ventricular pacing. He has a very wide paced ventricular complex with a QRS duration in excess of 200 ms and this could certainly cause a cardiomyopathy although this has been present for some time and until recently his left ventricular function was normal. He's not having any heart failure symptoms. Cardiac pressures were not elevated during catheterization. Would consider him Stage B at this time. Continue to optimize medical therapy. Continue Carvedilol 25 mg daily. Continue Entresto- increase to 97/103 mg BID. Repeat labs in 10 days for monitoring. Recommend Farxiga 10 mg daily to further optimize. He is now at target therapy. Plan to repeat echo prior to next visit. Consider upgrade to a biventricular device if not improving with medical therapy..." - pulmonology 08/11/22 [place]: "...Dyspnea on exertion: Combination of IPF and heart failure. Symptoms largely improved since the initiation of Entresto and Jardiance. Idiopathic pulmonary fibrosis, subacute form: Essentially minimal symptoms at this time. Patient reviewed literature related to Ofev and Esbriet and would like to hold off on antifibrotic therapy which I think is reasonable at this time. We will obtain a PFT in 6 months. Lung crackles: Secondary to IPF. Stable on exam..." - cardiology 06/01/22 [place]: "...Dual-chamber pacemaker: Pacemaker evaluation was not performed today. At his recent visit battery life remains acceptable and the ventricular threshold continues to very gradually increase, his atrial threshold is the same as last year. It is however somewhat elevated. These are old leads. This is likely affecting battery longevity but his projected longevity was still acceptable. There had been no significant arrhythmias since last evaluation. At this point I think we should continue to follow his device although he will likely need lead replacements at some point, possibly we can wait until his device requires replacement. Atrial fibrillation: He has remained out of atrial fibrillation since cardioversion on flecainide 100 mg twice a day. Now that he has a watchman in place we could drop the dose back to 50 mg twice a day or considering discontinuing it due to his current cardiac abnormalities, however since he is doing well on it and it seems to be effective, he does not have ischemia and I am not sure what his ejection fraction actually is due to the wide discrepancies I have not adjusted it. He has had no proarrhythmia based on pacemaker monitoring. Anticoagulation: He had a life-threatening bleed on Eliquis, he has a watchman in place and I would continue without anticoagulation. He is on aspirin and is doing well on that, he does not have coronary disease by catheterization so does not need it for that reason. Complete heart block: He has been in complete heart block, his ventricular rate is controlled by the pacemaker and seems appropriate (AV pacing). Sinus node dysfunction: He has sinus node dysfunction as part of sick sinus syndrome, now he has had atrial fibrillation as well although well controlled on flecainide. He is pacing virtually all of the time in the atrium with an appropriate heart rate distribution when last evaluated. Coronary calcification: With coronary calcification we felt he likely had coronary artery disease and we did have him on aspirin and low-dose atorvastatin. He does not have significant disease by catheterization, but probably does have the beginnings of coronary disease based on the calcification. I would continue low-dose atorvastatin and he is also on aspirin. Dyspnea on exertion: He has a number of possible reasons for having dyspnea on exertion, I believe he is being investigated for long COVID and he does seem to have some degree of left ventricular dysfunction. His ejection fraction is very widely so I am not sure how severe his cardiomyopathy is but he does not have objective evidence of heart failure. He still could have diff iculty with exertion due to left ventricular dysfunction. His left ventricular dysfunction could be a consequence of COVID, or possibly ventricular pacing but he does not have ischemia. Cardiomyopathy: He does have some degree of left ventricular dysfunction and I am going to try to optimize his medical therapy for now. I am going to switch his amlodipine valsartan combination to Entresto and I am going to switch his metoprolol to carvedilol. The carvedilol I am going to switch to full dose since he is already on an equivalent high dose of metoprolol, the Entresto ongoing to start at the middle dose. We may want to titrate that. We may also want to add other medications. I do not want to do too many things at once. His cardiomyopathy could also be due to ventricular pacing, he has a very wide paced ventricular complex with a QRS duration in excess of 200 ms and this could certainly cause a cardiomyopathy although this has been present for some time and until recently his left ventricular function was normal. I am therefore not sure that this is the cause. We may want to consider upgrade to a biventricular device however..." Chart Review Chart Review: Pending: Refer to Additional Notes / Consult section and Patient seen in Pre Admission Testing Teaching & Discussion Pre-Anesthesia Teaching/Discussion Notes: Instructed NPO after midnight before surgery, except medications with 15 cc of water. Medication instructions provided according to the PAT guidelines. History Surgery Operation Date: 09/21/22 09:35 Proposed Procedures p Open Right Inguinal Hernia Repair with Mesh - Romaine Bowman, Height/Weight Height: 5 ft 9.5 in Weight: 76.3 kg Allergies Allergy/AdvReac Type Severity Reaction Status Date / Time No Known Allergies Allergy Verified 08/31/22 12:23 Medications Home Medications Medication Instructions Recorded Confirmed Last Taken cyanocobalamin (vitamin B-12) 1,000 mcg PO QPM 06/20/21 08/31/22 07/23/22 21:00 1,000 mcg capsule aspirin 81 mg tablet,delayed 81 mg PO QAM 12/02/21 08/31/22 07/23/22 08:00 release pantoprazole 40 mg tablet,delayed 40 mg PO BID #60 tabs 01/24/22 08/31/22 07/23/22 22:00 release (Protonix) allopurinol 300 mg tablet 300 mg PO QAM #90 tabs 02/01/22 08/31/22 07/23/22 08:00 atorvastatin 10 mg tablet 10 mg PO HS 05/24/22 08/31/22 05/23/22 levothyroxine 112 mcg tablet 112 mcg PO QPM 05/24/22 08/31/22 07/24/22 06:00 (Synthroid) carvedilol 25 mg tablet 25 mg PO BID #180 tabs 06/02/22 08/31/22 07/24/22 06:00 famotidine 40 mg tablet 40 mg PO BID #180 tabs 08/14/22 08/31/22 Unknown sacubitril 97 mg-valsartan 103 mg 1 tab PO BID #180 tabs 08/22/22 08/31/22 Unknown tablet (Entresto) empagliflozin 10 mg tablet 10 mg PO QAM 08/31/22 08/31/22 Unknown (Jardiance) flecainide 100 mg tablet 100 mg PO BID 08/31/22 08/31/22 Unknown Past Medical History Medical History (Updated 09/06/22 @ 11:24 by Fatoumata Mckeon PA-C) Atrial fibrillation pacer/ cardioversion / meds Atrioventricular block, complete pacer BPH (benign prostatic hyperplasia) Cardiomyopathy nonischemic, EF 40-45% Carotid arterial disease 03/28 US completed, no hemodynamically significant stenosis Coronary artery calcification Diverticulosis Dyspnea on exertion resolved. Hiatal hernia History of anesthesia reaction with watchman procedure/marlon/couldn't wake him up: "couldn't clear the carbon dioxide" History of cardioversion History of COVID-24 Dec 2021 > resolved > not hospitalized Hx of gastric ulcer Hx of gout Hx of lower gastrointestinal bleeding no longer on Eliquis due to this > resolved Hyperlipidemia Hypertension controlled, stable per pt Hypothyroidism Idiopathic pulmonary fibrosis, subacute form no use of O2 Inguinal hernia present Macrocytic anemia hx Nummular eczema Pacemaker Medtronic Prediabetes diet controlled Sick sinus syndrome S/p Medtronic pacer placement (2002) Sinus node dysfunction Tubular adenoma of colon Patient denies h/o stroke, seizures, heart attack, or blood clots. Exercise / Class Metabolic Activity II 4-5 Yardwork/Stairs/Walk up hill (denies chest discomfort or shortness of breath with 1 FOS) Past Family History Family History Father Cardiac disorder Mother Pneumonia Other No family history of adverse response to anesthesia Denies family history of Ovarian cancer Prostate cancer Breast cancer Lung cancer Colorectal cancer Past Surgical History Surgical History H/O colonoscopy 08/2021 repeat 3 yrs History of cardiac cath June 2022 > [facility] > no stents History of cataract surgery RT/LEFT History of esophagogastroduodenoscopy (EGD) History of permanent cardiac pacemaker placement 2002 IMPLANTED FOR BRADYCARDIA > FOLLOWED BY DR. CRUZ > last checked May 2022 History of tonsillectomy and adenoidectomy "TONSILS REMOVED 2X" Hx of transesophageal echocardiography (QASIM) for monitoring Presence of Watchman left atrial appendage closure device placed Oct 2021 at [facility] S/P hernia repair Past Anesthesia History No Family Hx of Anesthesia Complications and Other (see above patient anesthesia complication) History of PONV No Hx of PONV and No Hx of Motion Sickness Social History Smoking Status: Former smoker tobacco type: cigarettes Do You Dip or Chew Tobacco: No Smoking End Date: [birth year]b 04 1967 Hx Alcohol Use: Yes Alcohol type: beer alcohol intake frequency: 0-2 drinks per day Alcohol Intake Frequency Comment: 1 beer a day Hx Substance Use: No substance use type: does not use Review of Systems Patient denies chest pain, shortness of breath, dyspnea on exertion, snoring, witnessed apneas, fever, chills, cough, wheezing, or palpitations. Physical Exam Vital Signs Vitals BP 107/71 P 65 TEMP 97.7 SP02 95% on RA RESP 18 Physical Full cervical extension range of motion without pain TMD 3.5 finger breadths Mallampati Score 3 Dentition: multiple crowns, denies chipped or loose teeth, caps, implants or bridges Lungs: normal respiratory effort. Good air movement, clear throughout to auscultation, no adventitious breath sounds Cardiac: regular rate and rhythm, no murmurs noted Carotid arteries: negative bruit bilat Lab Results Anesthesia Preop Results Results Anesthesia Widget: WBC 5.88 K/ul (4.8-10.8) 08/03/22 Hgb 13.4 g/dl (14.0-18.0) L 08/03/22 Hct 39.3 % (42.0-52.0) L 08/03/22 Plt 188 K/uL (130-400) 08/03/22 Na 136 mmol/L (136-145) 08/03/22 K 4.4 mmol/L (3.5-5.1) 08/03/22 Cl 106 mmol/L (98-107) 08/03/22 CO2 25 mmol/L (21-32) 08/03/22 BUN 15 mg/dl (6-23) 08/03/22 Creat 1.18 mg/dl (0.6-1.4) 08/03/22 Glucose Level 132 mg/dl (70-99(Fasting)) H 08/03/22 TSH 1.839 uIu/ml (0.300-4.500) 08/03/22 HA1c 5.9 % (4.5-5.6) H 08/03/22 Testing Electrocardiogram Date: 05/24/22 AV dual paced rhythm with prolonged AV conduction with occasional ventricular complexes, rate 83 bpm Chest X-Ray Date: 05/24/22 *1view* No acute chest disease. Cardiomegaly is noted. Echocardiogram Date: 04/05/22 EF 40-45% Abnormal paradoxical septal motion consistent with RV pacemaker Apical anterior and lateral akinesis with apical inferior and septal dyskinesis Moderately dilated RA Mildly dilated LV Moderate tricuspid regurgitation Mild mitral regurgitation Stress Test Date: 03/24/22 Pharmacologic MPHR 58% 1. Negative myocardial perfusion study for significant Lexiscan induced ische breann. 2. Large, fixed inferior/inferoseptal perfusion defect consistent with prior PDA distribution infarct and minimal leah-infarct ischemia. 3. Normal LV size. Calculated LVEF 12% (likely an underestimate). Severe global hypokinesis with akinetic inferior wall and paradoxical septal motion. 4. Non-diagnostic stress ECG due to paced rhythm. Cardiac Catheterization Date: 05/25/22 Left main: Left main was quite short and bifurcated immediately into the left anterior descending left circumflex arteries. No disease in this vessel Small ramus intermedius without disease Left anterior descending: Left anterior descending was a large vessel which reached the apex. It produced a small 1st diagonal a medium 2nd and 3rd diagonal branch. There was approximately 40% stenosis at the ostium of D1. No other significant obstructive disease Left circumflex: Left circumflex was a codominant vessel. It produced a large 1st OM branch and large 2nd OM. Some luminal irregularities but no discrete stenosis in this vessel Right coronary: The right coronary was a codominant vessel. There is some luminal regularities in its midportion but no other significant disease Other Testing High resolution chest CT 06/08/22 1. There is evidence of chronic interstitial/fibrotic lung disease as detailed above with a usual interstitial pneumonitis pattern. 2. No airspace consolidation or pleural effusion is identified. 3. Cardiomegaly and cardiac pacemaker. 4. Right lobe thyroid nodule. Nonemergent thyroid ultrasound is recommended in follow-up. 5. Additional findings as above. Spirometry 05/29/22 Restriction probable; further examinations recommended FEV1 66% predicted Abdomen pelvis CT 02/06/22 1. No acute abnormalities are seen. 2. Chronic bladder outlet obstruction. 3. Partial visualization of a cardiomegaly and interstitial lung disease. 4. Additional findings as above. Abdomen pelvis CTA 06/14/21 1. The colon is mild is distended and fluid-filled. This could be due to a diarrheal state/gastroenteritis or possibly represent the patient's known GI bleed. No distinct site of active GI bleed is identified. 2. No significant stenosis, occlusion, or dissection identified within the aorta or major mesenteric vessels. 3. 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 4. Colonic diverticulosis. No evidence for acute diverticulitis. 5. Additional findings as described above. Carotid doppler 03/31/20 1. Atheromatous plaque of the bilateral carotid bulbs and proximal cervical segments of the internal carotid arteries without hemodynamically significant stenosis.. 2. Normal antegrade vertebral flow bilaterally.
[~2022-09-21 06:45] MED LIST changes: -ALL300 PO; +LR 15ML/HR IV SCH; -METO100T44 PO; -OMEG10007 PO; -SYN100 PO; -[UNRECOGNIZED DRUG - OTHER]; +ceFAZolin 2000MG 2,000 MG/15 ML SYR IV SCH
--- NOTE | 2022-09-21 07:08 | History & Physical Bridge Note ---
Date of Service September 21, 2022 History & Physical Bridge Note I have examined the patient, reviewed the History & Physical and in the interval since the performance of the History & Physical I have noted the following changes of clinical significance: no changes noted
[2022-09-21] MEDS ORDERED: BUPIVACAINE/EPINEPHRINE 0.5% MPF 1:200,000 30 ML VIAL ONE (08:06)
[2022-09-21] MEDS ORDERED: ATROPINE SULFATE 0.1 MG/ML 10ML SYR IV PRN (08:19)
[2022-09-21] MEDS ORDERED: ONDANSETRON INJ 2 MG/ML 2 ML VIAL IV PRN ×2 (08:19→11:11)
[2022-09-21] MEDS ORDERED: HYDROmorphone INJ 1 MG/ML SYRINGE IV PRN (08:19)
[2022-09-21] MEDS ORDERED: ePHEDrine sulfate 50 MG/ML AMP IV PRN (08:19)
[2022-09-21] MEDS ORDERED: ACETAMINOPHEN 1000 MG/100 ML IV IV ONE (08:30)
[2022-09-21] MEDS ORDERED: ONDANSETRON INJ 2 MG/ML 2 ML VIAL ONE (09:03)
[2022-09-21] MEDS ORDERED: DEXAMETHASONE SOD INJ 4 MG/ML VIAL ONE (09:03)
[2022-09-21] MEDS ORDERED: PROPOFOL IV EMULSION 10 MG/ML 20 ML VIAL IV ONE (09:03)
[2022-09-21] MEDS ORDERED: LIDOCAINE 2% 2 ML VIAL/AMP(20MG/ML) INFIL ONE (09:03)
--- NOTE | 2022-09-21 09:20 | Operative Report ---
PG Post Operative Report Pre & Post Diagnosis Operation Date: 09/21/22 08:20 Pre-Op Diagnosis: Incarcerated Right Inguinal Hernia Post-Op Diagnosis: Incarcerated Right Inguinal Hernia I identified the patient and participated in the time-out.: Yes Procedure Operation Date: 09/21/22 08:20 Actual Procedures p Right Open Inguinal Hernia Repair with Mesh(Right) - Romaine Bowman DO Surgeon Romaine Bowman DO Photographic Specialist O'Josh Estimated Blood Loss 5 Findings Consistent with Post-Op Diagnosis Specimens none Description of Procedure After informed consent was obtained the patient was taken the operating room and placed in supine position. After successful placement of the laryngeal mask airway the groin was shaved and sterilely prepped and draped in usual fashion. An inguinal incision was made with a 15 blade scalpel and carried down through the soft tissue using electrocautery. The external oblique aponeurosis was s keletonized. A fresh blade was used to make an incision and then Metzenbaum scissors were used to extend this distally through the external ring as well as for several centimeters proximally. Once in the inguinal canal I used blunt finger dissection to free up the cord and cord structures. I was able to gently tease the cord off of the pubic bone and placed a Superior drain around it. There was an obvious direct hernia. I was able to dissect this back to its neck and reduce it. It was unable to stay self reduced therefore I used a plug and patch technique. A medium size polypropylene plug was placed into the defect after reducing the hernia. It was secured to surrounding musculature using 0 Ethibond. I evaluated the cord and cord structures. There was no evidence of an indirect hernia. We then thoroughly irrigated the wound. I used a polypropylene angulo-holed mesh as an onlay. It was secured distally to Luis's ligament, laterally along the shelving portion of Poupart's ligament and medially along the midline musculature. 0 Ethibond was used for the suturing. The "arms" of the mesh were wrapped around behind the cord and cord structures and again secured to underlying muscle. The mesh laid nice and flat and tension-free and did not impinge on the cord structures themselves. We thoroughly irrigated the wound. There was adequate hemostasis. I injected Marcaine around the edges of the mesh for postoperative analgesia. We then closed the external oblique aponeurosis with 2-0 Vicryl in a running fashion. Soft tissue was irrigated and closed in multiple layers using 3-0 Vicryl for the deep layers and 4-0 Monocryl for the skin. Some additional Marcaine was injected around the skin incision. We then used a skin glue as a dressing. The patient was awaken extubated and transferred to recovery in stable condition. My physician's geriatric assistant was present throughout the entire procedure. She helped prep the patient. Helped with retraction throughout the case to aid my dissection, assisted with wound closure as well as dressing placement. I attest to the content of the Intraoperative Record and any orders documented therein. Any exceptions are noted below. I attest to the content of the Intraoperative Record and any orders documented therein. Any exceptions are noted below.
--- NOTE | 2022-09-21 09:47 | Anesthesiology Progress Note ---
Date of Service September 21, 2022 Anesthesia Post Procedure Vital Signs Vital Signs: Temp Pulse Pulse Resp BP BP Pulse Ox 09/21/22 09:30 60 23 138/86 100 09/21/22 09:20 36.3 C L 64 19 133/85 99 09/21/22 07:13 36.4 C L 67 20 155/108 H 146/93 H 97 O2 Del Method O2 Flow Rate 09/21/22 09:30 Oxymask 6 09/21/22 09:20 Oxymask 6 09/21/22 07:13 Room Air Transfer of Care Handoff Completed per policy Notes Mental Status: alert / awake / arousable and participated in evaluation Nausea / Vomiting: adequately controlled Pain: adequately controlled Airway Patency, RR, SpO2: stable & adequate BP & HR: stable & adequate Hydration State: stable & adequate Anesthetic Complications: no major complications apparent and Pt Satisfied with anesthetic care
[2022-09-21] MEDS ORDERED: LACTATED RINGER'S 1,000 ML IV SCH (11:11)
[2022-09-21] MEDS ORDERED: ACETAMINOPHEN 325 MG TAB PO PRN (11:11)
[2022-09-21] MEDS ORDERED: traMADol HCL 50 MG TABLET PO PRN ×2 (11:11)
[2022-09-21] MEDS ORDERED: MoRPHine SULFATE 2 MG/ML CARP IV PRN (11:11)
--- NOTE | 2022-09-21 11:43 | Hospitalist Consultation ---
Date of Consultation September 21, 2022 Assessment & Plan (1) Incarcerated right inguinal hernia: Summary: Patient is a 86-year-old male s/p uncomplicated operative repair of incarcerated right inguinal hernia. He is doing well postoperatively with normal blood pressure and heart rate. No home oxygen requirement, and does not have a current oxygen requirement postoperatively. He has a history of A-fib in sinus since cardioversion, and is maintained on flecainide which is continued. Due to sick sinus syndrome he has a dual-chamber pacemaker placed which has been functioning appropriately. Cardiac catheterization 05/2022 without significant disease, reduced ejection fraction? Due to A-fib versus prior pacing. Patient doing well clinically. Home cardiac/hypertensive meds including aspirin, carvedilol, Entresto, Jardiance are all continued. He does have a history of idiopathic pulmonary fibrosis without oxygen requirement, no acute change in management of this is recommended at this time. BSG adequately controlled this morning thyroid last stable 07/2022, home Synthroid has been continued. Patient does have a history of moderately controlled GERD and large hiatal hernia for which surgical repair has been deferred, recommend continuing maximum gastric prophylactic therapy including PPI twice daily and Pepcid twice daily. May add GI cocktail if symptomatic. Monitor for signs of GI bleeding, hold aspirin if these develop Incarcerated right inguinal hernia repair S/p operative repair with Dr. Bowman uncomplicated 09/21/2022 Management per primary team A-fib with sinus node dysfunction/SSS, pacemaker placement S/p Watchman procedure, out of A-fib since cardioversion and maintained on flecainide 100 mg twice daily Continue flecainide 100 mg twice daily Patient is not anticoagulated due to life-threatening bleed on Eliquis, watchman is in place, no anticoagulation at this time. May continue aspirin 81 mg daily Continue carvedilol EKG: Cardiomyopathy with reduced EF coronary calcification Continue aspirin, atorvastatin No significant disease on last catheterization " 05/25/22: left main: Left main was quite short and bifurcated immediately into the left anterior descending left circumflex arteries. No disease in this vessel Small ramus intermedius without disease Left anterior descending: Left anterior descending was a large vessel which reached the apex. It produced a small 1st diagonal a medium 2nd and 3rd diagonal branch. There was approximately 40% stenosis at the ostium of D1. No other significant obstructive disease Left circumflex: Left circumflex was a codominant vessel. It produced a large 1st OM branch and large 2nd OM. Some luminal irregularities but no discrete stenosis in this vessel Right coronary: The right coronary was a codominant vessel. There is some luminal regularities in its midportion but no other significant disease " TTE 2022: EF 40-45%.? Due to COVID versus ventricular pacing Carvedilol 25 mg daily continued Continue Entresto twice daily Continue Jardiance Hypertension Continue Entresto/carvedilol as noted. Normotensive postop Idiopathic pulmonary fibrosis Follows with pulmonary as outpatient Symptoms greatly improved with heart failure treatment, continue management of heart failure with reduced ejection fraction as otherwise noted Spirometry 2022: Restrictive disease Continue outpatient follow-up No acute changes recommended at this time Hypothyroidism Continue Synthroid 112 mcg TSH last checked in normal 07/2022. Defer recheck at this time GERD Continue Protonix 40 mg daily. Continue Pepcid 40 mg twice daily. Wedge pillow for sleeping. Patient has deferred surgical evaluation unless necessary for large hiatal hernia given her/benefits on discussion with GI as outpatient No acute change in management at this time, no signs of GI bleeding. Gout May continue allopurinol 300 mg every morning DVT prophylaxis: SCDs, defer pharmacal prophylaxis due to history of severe life-threatening GI bleed and ongoing moderately controlled GERD CODE STATUS: DNR/DNI, updated from full code. See consultation HPI for discussion details Disposition: Telemetry Diet: Heart healthy (2) Large hiatal hernia: (3) GERD (gastroesophageal reflux disease): (4) Hypothyroidism: (5) Cardiomyopathy: (6) Pacemaker: (7) Gout: History of Present Illness Attending Physician: Romaine Bowman, History of Present Illness Bridger Britton is an 86-year-old male who presented for incarcerated right inguinal hernia repair. We are consulted for postoperative medication management, patient has a history of PVC/pacemaker placement/hypothyroidism. Bridger is seen at the bedside postoperatively. He reports he feels very well, is eating lunch comfortably. He reports he has some tenderness at his right incision site, but that this is mild and he has minimal pain at rest. No swelling around the surgical site. He reports prior to surgery has had no recent chest pain, chest pressure, difficulty breathing, or shortness of breath. He reports he does have some interstitial lung disease at baseline but has not been wheezing and feels this is at its normal baseline. He has had no palpitations either before or after surgery. No lightheadedness/dizziness. He reports he does have a history of life-threatening GI bleed for which she is had the Watchman procedure. Currently tolerates a daily baby aspirin well, has not been on any blood thinners recently. Denies any recent melena, bright red blood per rectum, or hematemesis. He reports he does have a hiatal hernia which tends to bother him in the morning, and which improves and is not noticeable through the day and into the evening. This has not changed. He does not have any abdominal tenderness at time of presentation. He has deferred getting this fixed surgically, and is doing well on antiacid therapy. Reports no tobacco use, has about 1 beer per day with no history of alcohol withdrawal or elevated use. No fever/chills/sweats/cough. No symptoms that are concerning to him at time bedside visit. He reports he did take his medications as directed including his flecainide and carvedilol. CODE STATUS discussion: Did revisit CODE STATUS discussion with patient at bedside. He reports that in the event of a complete cardiac or respiratory arrest he would not want CPR/intubation to revive him. He reports that he has lived a good life, and would not want heroic measures that may compromise his quality of life in an effort to extend the length of his life. Is agreeable to normal and all medical care outside of a Arret situation. As such we will update to DNR/DNI, patient is agreeable and is present at bedside during discussion. Allergies Allergy/AdvReac Type Severity Reaction Status Date / Time No Known Allergies Allergy Verified 09/21/22 07:12 Home Medications Medication Instructions Recorded Confirmed Type cyanocobalamin (vitamin B-12) 1,000 mcg PO QPM 06/20/21 09/21/22 History 1,000 mcg capsule aspirin 81 mg tablet,delayed 81 mg PO QAM 12/02/21 09/21/22 History release pantoprazole 40 mg tablet,delayed 40 mg PO BID #60 tabs 01/24/22 09/21/22 Rx release (Protonix) allopurinol 300 mg tablet 300 mg PO QAM #90 tabs 02/01/22 09/21/22 Rx atorvastatin 10 mg tablet 10 mg PO HS 05/24/22 09/21/22 History levothyroxine 112 mcg tablet 112 mcg PO QPM 05/24/22 09/21/22 History (Synthroid) carvedilol 25 mg tablet 25 mg PO BID #180 tabs 06/02/22 09/21/22 Rx famotidine 40 mg tablet 40 mg PO BID #180 tabs 08/14/22 09/21/22 Rx sacubitril 97 mg-valsartan 103 mg 1 tab PO BID #180 tabs 08/22/22 09/21/22 Rx tablet (Entresto) empagliflozin 10 mg tablet 10 mg PO QAM 08/31/22 09/21/22 History (Jardiance) flecainide 100 mg tablet 100 mg PO BID 08/31/22 09/21/22 History Patient History Medical History Atrial fibrillation pacer/ cardioversion / meds Atrioventricular block, complete pacer BPH (benign prostatic hyperplasia) Cardiomyopathy nonischemic, EF 40-45% Carotid arterial disease 03/28 US completed, no hemodynamically significant stenosis Coronary artery calcification Diverticulosis Dyspnea on exertion resolved. Hiatal hernia History of anesthesia reaction with watchman procedure/marlon/couldn't wake him up: "couldn't clear the carbon dioxide" History of cardioversion History of COVID-24 Dec 2021 > resolved > not hospitalized Hx of gastric ulcer Hx of gout Hx of lower gastrointestinal bleeding no longer on Eliquis due to this > resolved Hyperlipidemia Hypertension controlled, stable per pt Hypothyroidism Idiopathic pulmonary fibrosis, subacute form no use of O2 Inguinal hernia present Macrocytic anemia hx Nummular eczema Pacemaker Medtronic Prediabetes diet controlled Sick sinus syndrome S/p Medtronic pacer placement (2002) Sinus node dysfunction Tubular adenoma of colon Surgical History (Updated 09/21/22 @ 09:46 by Mitali Romero, LILLIANA) H/O colonoscopy 08/2021 repeat 3 yrs H/O right inguinal hernia repair (09/21/22) Right Open Inguinal Hernia Repair with Mesh(Right) - Romaine Bowman DO History of cardiac cath June 2022 > [facility] > no stents History of cataract surgery RT/LEFT History of esophagogastroduodenoscopy (EGD) History of permanent cardiac pacemaker placement 2002 IMPLANTED FOR BRADYCARDIA > FOLLOWED BY DR. CRUZ > last checked May 2022 History of tonsillectomy and adenoidectomy "TONSILS REMOVED 2X" Hx of transesophageal echocardiography (QASIM) for monitoring Presence of Watchman [place] appendage [place] [facility] [place] Family History Father Cardiac disorder Mother Pneumonia Other No family history of adverse response to anesthesia Denies family history of Ovarian cancer Prostate cancer Breast cancer Lung cancer Colorectal cancer Social History Smoking Status: Former smoker Tobacco Type: Cigarettes Age Started Using Tobacco: 22; Age Quit Using Tobacco: 54; packs per day: 1; Smoking End Date: feb 04 1969; Second Hand Exposure: No; Do You Dip or Chew Tobacco: No; Hx Alcohol Use: Yes Alcohol type: beer Alcohol Intake Frequency: 4 or More x per/Week Hx Substance Use: No Preferred Language: Greek Communication Ability: Effective Visual Impairment: No Limitations Hearing Ability: Hard of Hearing Animal Feeder Required: No Beliefs That Will Affect Care: None marital status: Current Living Situation: Spouse current occupational status: retired Feels Safe at Home: Yes Childhood Exposure to Second-Hand Smoke: No Dental Care, Regularly: Yes Physical Activity Frequency: Daily Seatbelt Use: always Sunscreen Use: No Assistive Devices: Hearing Aid - Bilateral and Other Assistive Devices Comment: reading glasses Review of Systems Review of Systems: All systems reviewed & are unremarkable except as noted in HPI & below Physical Exam Physical Exam: General: A&Ox3. NAD. Cooperative. HEENT: Atraumatic, normocephalic. Vision an dhearing intact Pulm: CTAB A&P. -wheezes, -rales, -rhonchi. Symmetrical chest rise. No increased work of breathing. No respiratory distress. Cardiac: RRR, +sm. Radial pulses intact and symmetrical. Abdominal: Nontender, nondistended, soft. BS present. : R hernia incusion intact, with dermaond. no hematoma/swelling/dehischence. Minimal TTP. No warmth/erythema. Ext: warm, dry. Moves upper and lower extremities equally Results & Data Results & Data Vital Signs (Past 12 Hours) Vital Signs Temp Pulse Pulse Resp BP BP Pulse Ox 09/21/22 11:13 09/21/22 11:13 36.4 C L 60 16 140/90 96 09/21/22 10:35 60 18 138/90 96 09/21/22 10:20 36.3 C L 60 18 139/88 96 09/21/22 10:10 61 20 135/84 96 09/21/22 10:00 61 20 133/87 97 09/21/22 09:50 60 20 129/85 96 09/21/22 09:40 60 18 138/87 95 09/21/22 09:30 60 23 138/86 100 09/21/22 09:20 36.3 C L 64 19 133/85 99 09/21/22 07:13 36.4 C L 67 20 155/108 H 146/93 H 97 O2 Del Method O2 Flow Rate 09/21/22 11:13 Room Air 09/21/22 11:13 Room Air 09/21/22 10:35 Room Air 09/21/22 10:20 Room Air 09/21/22 10:10 Room Air 09/21/22 10:00 Room Air 09/21/22 09:50 Room Air 09/21/22 09:40 Room Air 09/21/22 09:30 Oxymask 6 09/21/22 09:20 Oxymask 6 09/21/22 07:13 Room Air PG Care Time/CCT Total # of Minutes Spent Total Time Spent with Patient: Total time spent is greater than 50% in coordination of care (as documented) at patient's floor/unit and/or counseling patient: Coding Level of Care Code 62192 IN/OBS CONSULT LVL 4,60M Diagnoses Incarcerated right inguinal hernia K40.30 Large hiatal hernia K44.9 GERD (gastroesophageal reflux disease) K21.9 Hypothyroidism E03.9 Cardiomyopathy I42.9 Pacemaker Z95.0 Gout M10.9
[2022-09-21] MEDS: carvediloL 25 MG TAB PO SCH (17:01)
[2022-09-21] MEDS: FAMOTIDINE 40 MG TABLET PO SCH (20:06)
[2022-09-21] MEDS: FLECAINIDE ACETATE 100 MG TABLET PO SCH (20:06)
[2022-09-21] MEDS: VALSARTAN/SACUBITRIL 103/97MG TAB PO SCH (20:06)
[2022-09-21] MEDS: PANTOprazole 40 MG TAB PO SCH (20:07)
[2022-09-21] MEDS ORDERED: LEVOTHYROXINE SODIUM 112 MCG TABLET PO SCH (21:00)
[2022-09-21] MEDS ORDERED: carvediloL 25 MG TAB PO SCH (21:00)
[2022-09-21] MEDS ORDERED: ATORVASTATIN 10 MG TAB PO SCH (21:00)
[2022-09-21] MEDS ORDERED: VALSARTAN/SACUBITRIL 103/97MG TAB PO SCH (21:00)
[2022-09-22 05:04] LABS: Basophils # (auto) 0.01 K/uL (0-0.2); Basophils % (auto) 0.1 %; Hematocrit (blood only) 37.2 % (42.0-52.0); Hemoglobin 12.7 g/dl (14.0-18.0); Immature Granulocytes # (auto) 0.06 K/uL (0.01-0.20); Immature Granulocytes % (auto) 0.6 %; Lymphocytes # (auto) 1.13 K/uL (1.2-3.4); Lymphocytes % (auto) 10.4 %; Mean Corpuscular Hemoglobin 34.3 pg (25.0-34.0); Mean Corpuscular Hgb Conc 34.1 g/dL (32.0-36.0); Mean Corpuscular Volume 100.5 fL (80.0-100.0); Monocytes # (auto) 0.68 K/uL (0.11-0.59); Monocytes % (auto) 6.3 %; Neutrophils # (auto) 8.94 K/uL (1.40-6.50); Neutrophils % (auto) 82.6 %; Platelet Count 164 K/uL (130-400); RDW Coefficient of Variation 13.2 % (11.5-14.5); RDW Standard Deviation 49.1 fL (36.4-46.3); White Blood Count 10.82 K/ul (4.8-10.8)
[2022-09-22 05:14] LABS: BUN Creatinine Ratio 17.9 (10-20); Calcium 8.6 mg/dl (8.6-10.3); Creatinine Clr Calc Pharmacy 49.9 ml/min; Est GFR (African American) 69.5 ml/min; Potassium 4.2 mmol/L (3.5-5.1)
[2022-09-22] MEDS: VALSARTAN/SACUBITRIL 103/97MG TAB PO SCH (08:37)
[2022-09-22] MEDS: carvediloL 25 MG TAB PO SCH (08:37)
[2022-09-22] MEDS: FLECAINIDE ACETATE 100 MG TABLET PO SCH (08:38)
[2022-09-22] MEDS: PANTOprazole 40 MG TAB PO SCH (08:38)
[2022-09-22] MEDS: FAMOTIDINE 40 MG TABLET PO SCH (08:38)
[2022-09-22] MEDS ORDERED: ASPIRIN 81 MG ECTAB PO SCH (09:00)
--- NOTE | 2022-09-22 09:29 | Surgery Progress Note ---
Date of Service September 22, 2022 Assessment & Plan (1) H/O right inguinal hernia repair: Plan: Doing well. Okay for discharge. Instructions discussed. Follow-up in 1 to 2 weeks Admission and Anticipated Discharge Date Admission Date: September 21, 2022 Subjective Patient doing well. He relates some soreness but no pain whatsoever. He has tolerated diet and would like to go home Physical Exam Physical Exam: Alert. No acute distress Abdomen is soft. His incision looks great. Some expected ecchymosis. Results & Data Vital Signs (Past 12 Hours) Vital Signs Temp Pulse Resp BP Pulse Ox 09/22/22 05:50 60 19 91 09/22/22 05:40 60 19 94 09/22/22 05:30 60 18 93 09/22/22 05:20 61 17 93 09/22/22 05:10 61 17 93 09/22/22 05:00 62 25 H 115/65 93 09/22/22 04:50 62 21 93 09/22/22 04:40 60 19 94 09/22/22 04:30 64 22 93 09/22/22 04:20 60 21 95 09/22/22 04:10 56 L 24 93 09/22/22 04:00 60 15 94 09/22/22 03:50 65 17 94 09/22/22 03:40 60 14 94 09/22/22 03:30 61 16 94 09/22/22 03:20 60 18 94 09/22/22 03:10 60 16 93 09/22/22 03:00 62 16 94 09/22/22 02:50 60 16 94 09/22/22 02:40 62 28 H 94 09/22/22 02:30 62 22 94 09/22/22 02:20 82 20 95 09/22/22 02:10 64 23 94 09/22/22 02:01 68 18 95 09/22/22 02:01 140/89 09/22/22 02:00 63 32 H 96 09/22/22 01:50 57 L 26 H 94 09/22/22 01:40 64 17 94 09/22/22 01:30 60 18 95 09/22/22 01:20 60 21 92 09/22/22 01:10 60 24 93 09/22/22 01:00 60 22 92 09/22/22 00:50 61 23 92 09/22/22 00:40 60 25 H 90 09/22/22 05:00 36.1 C L 09/22/22 00:30 60 21 91 09/22/22 00:20 61 22 93 09/22/22 00:10 60 18 92 09/22/22 00:00 66 16 118/82 94 09/21/22 23:50 64 17 94 09/21/22 23:40 63 16 94 09/21/22 23:30 63 19 94 09/21/22 23:20 63 16 93 09/21/22 23:10 63 16 93 09/21/22 23:00 64 22 95 09/21/22 22:50 64 28 H 93 09/21/22 22:40 64 25 H 93 09/21/22 22:30 63 24 93 09/21/22 22:20 64 27 H 93 09/21/22 22:10 65 27 H 94 09/21/22 22:00 64 24 132/88 95 09/21/22 21:50 66 25 H 95 09/21/22 21:40 66 27 H 94 09/21/22 21:30 74 26 H 94 09/21/22 23:04 70 PG Care Time/CCT Total # of Minutes Spent Total Time Spent with Patient: Total time spent is greater than 50% in coordination of care (as documented) at patient's floor/unit and/or counseling patient: Coding Level of Care Code 81166 Post Operative Follow-Up Diagnoses H/O right inguinal hernia repair Z98.890; Z87.19
--- NOTE | 2022-09-26 13:03 | Discharge Summary ---
Date of Service September 22, 2022 Admission HPI Per Admitting Provider Inguinal hernia repair Principal Diagnosis Right inguinal hernia Discharge Exam Alert. No acute distress Abdomen is soft. His incision looks great. Some expected ecchymosis. (per surgical progress note) Discharge Data Allergies Allergy/AdvReac Type Severity Reaction Status Date / Time No Known Allergies Allergy Verified 09/26/22 09:03 Consultations 09/21/22 11:11 Consult Hospitalist Routine Procedures Performed Operation Date: 09/21/22 08:20 Actual Procedures p Right Open Inguinal Hernia Repair with Mesh(Right) - Romaine Bowman DO Hospital Course (1) H/O right inguinal hernia repair: You underwent an elective open right inguinal hernia repair with Dr. Bowman on 09/21/22. You stayed one night the hospital and were discharged the following day 09/22/22 in stable condition. You were instructed to follow up with the surgeon in the office as an output. Total Time Total Time Spent Total Time Spent (In Minutes): 15 Discharge Plan Discharge Items Patient Disposition: Home - Self-Care Reason For Visit: Incarcerated Right Inguinal Hernia Discharge Diagnosis: right inguinal hernia repair Activity: Per Instructions section Lifting: No more than 10 pounds Bathing Comment: may shower starting 09/22/22; no soaking in tubs/pools x 2 weeks Exercise/Sports: Wait until after follow-up appointment Driving/Machine Use: wait at least 1 week; no driving while taking narcotics for pain Non-emergency contact: Surgeon Call non-emergency contact if: you have any medication questions, your symptoms worsen, your pain is worsening, you have a fever, your temperature is above 101.5, your wound has increased redness, your wound has increased drainage and your wound pain has increased Follow-up/Referrals: Romaine Bowman DO [Surgeon] - (Please call to schedule follow up in clinic within 2 weeks ) Dylan Christianson DO [Primary Care Provider] - 09/26/22 9:15 am (You also have an upcoming visit on 10/04 @ 10:15. You may want to ask if you'll need to keep that appointment as well) Diet: Regular Addtl Attending Provider Instructions: You may ice your groin on and off alternating every 20 minutes as needed to help with pain and swelling over the next few days. You have skin glue over your incisions called dermabond. you may shower with this on. It will tend to dissolve and fall off within a couple weeks. Do not pick at the skin glue Pending Studies at Discharge: No Stand-Alone Forms: My [facility] Medications and DC Order Prescriptions: New tramadol 50 mg tablet 50 - 100 mg PO Q6H PRN (Reason: pain, for initial therapy, max 6 tabs/day) Qty: 15 0RF Continued allopurinol 300 mg tablet 300 mg PO QAM Qty: 90 3RF carvedilol 25 mg tablet 25 mg PO BID Qty: 180 3RF Rx Instructions: must administer with a meal/food Entresto 97-103 mg tablet 1 tab PO BID Qty: 180 3RF famotidine 40 mg tablet 40 mg PO BID Qty: 180 3RF pantoprazole [Protonix] 40 mg tablet,delayed release (DR/EC) 40 mg PO BID Qty: 60 11RF cyanocobalamin (vitamin B-12) 1,000 mcg capsule 1,000 mcg PO QPM aspirin 81 mg tablet,delayed release (DR/EC) 81 mg PO QAM flecainide 100 mg tablet 100 mg PO BID Jardiance 10 mg tablet 10 mg PO QAM atorvastatin 10 mg tablet 10 mg PO HS levothyroxine [Synthroid] 112 mcg tablet 112 mcg PO QPM Discharge Orders: Discharge Order (Routine); Ordered 09/22/22 Ordered By: Romaine Bowman Admission Data Admit Date/Time: 09/21/22 09:27 Attending Provider: Romaine Bowman Admit Provider: Romaine Bowman Primary Care Provider: Dylan Christianson Other Providers: Myke Smith Other Interventions: Discharge Summary Assessment (RN) Last Done: 09/22/22 09:48 Coding Level of Care Code 41934 IN/OBS DISCH 30 MIN/LESS Diagnoses H/O right inguinal hernia repair Z98.890; Z87.19
== END 2022-09-22 10:19 | disposition home or self-care (01) ==
LOC: ASU 06:45 → 1E 06:45
DX: I10 Essential (primary) hypertension; Z79.82 Long term (current) use of aspirin; K40.30 Unilateral inguinal hernia, with obstruction, without gangrene, not specified as recurrent; Z79.890 Hormone replacement therapy; J84.10 Pulmonary fibrosis, unspecified; Z79.899 Other long term (current) drug therapy; Z87.891 Personal history of nicotine dependence; Z95.818 Presence of other cardiac implants and grafts

== ENCOUNTER 2023-05-01 11:35 | Observation (INO) ==
--- NOTE | 2023-05-01 13:05 | History & Physical Bridge Note ---
Date of Service May 01, 2023 History & Physical Bridge Note I have examined the patient, reviewed the History & Physical and in the interval since the performance of the History & Physical I have noted the following changes of clinical significance: no changes noted. I reviewed the indications, procedure, risks and alternatives with the patient, and answered all questions. Patient understands and agrees to the procedure. Consent obtained. I also reviewed the risks and use of sedation, patient understands and consent obtained.
--- NOTE | 2023-05-01 13:06 | Pre Anesthesia Assessment ---
Date of Service May 01, 2023 Pre Sedation Assessment Vital Signs Pulse Resp BP Pulse Ox O2 Del Method 05/01/23 12:00 60 18 147/106 H 98 Room Air Cardiovascular RRR, no murmur, no edema Respiratory normal respiratory effort, lungs clear to auscultation Pre-Sedation Airway Assessment Smoking Status: Former smoker Hx Sleep Apnea: No Hx Difficult Intubation: No Short, Thick Neck: No Thyromental Distance: > or= 3.5 Finger Breadths Oral Cavity: + WNL Mallampati Class: II ASA: ASA3 NPO Status Date of Last Intake of Fluids: 04/30/23 Time of Last Intake of Fluids: 22:00 Date of Last Intake of Solid Food: 04/30/23 Time of Last Intake of Solid Foods: 22:00 Procedure Planning Contraindications for Sedation: none Current Medications Reviewed: Yes Notes The planned sedation has been discussed with the patient. Informed Consent was obtained. I have identified the patient, determined the appropriateness of sedation and have assessed the patient immediately prior to the procedure. All medicine(s) and interventions are by my order.
[2023-05-01] MEDS: LIDOCAINE 1% LOCAL 20 ML VIAL ONE (14:21)
[2023-05-01] MEDS: VANCOMYCIN HCL 1000MG/20ML VIAL ONE (14:21)
[2023-05-01] MEDS: WATER, STERILE FOR INJ 10 ML VIAL ONE (14:22)
[2023-05-01] MEDS: ceFAZolin 330 MG/ML 1 GM VIAL ONE (14:22)
[2023-05-01] MEDS: MIDAZOLAM HCL 5 MG/ML 1 ML VIAL ONE (15:49)
[2023-05-01] MEDS: fentaNYL citrate PF 100 MCG/2 ML VIAL ONE (15:50)
--- NOTE | 2023-05-01 15:55 | Electrophysiology Report ---
Date of Service May 01, 2023 Electrophysiology Procedure Electrophysiology Procedure Report Preoperative diagnosis: Left bundle branch block (paced), cardiomyopathy, congestive heart failure Postoperative diagnosis: Same Procedure: Left subclavian venogram Coronary sinus angiography Left ventricular lead implantation Ventricular defibrillator lead implantation Atrial lead implantation Dual-chamber pacemaker removal Chronic atrial and ventricular lead cap Biventricular ICD implantation Surgeon: Glenroy Lo MD Estimated blood loss: 50 cc Complications: None Disposition: Cardiology recovery Procedure details: After obtaining informed consent for the procedure, the patient was brought to the laboratory and prepped and draped in the standard sterile manner. Dye was injected the left arm IV site to opacify the left subclavian vein. The subclavian vein was identified and found to be free of obstruction. The left prepectoral region was anesthetized with 1% lidocaine local anesthetic and left axillary venipuncture was performed by percutaneous technique and a guidewire placed through the left subclavian vein into the superior vena cava. The area was further infiltrated with 1% lidocaine local anesthetic and a 2 cm incision was made parallel to the left clavicle and 2 cm below it and carried down to the anterior pectoralis fascia. A Irving coronary sinus sheath was advanced to position in the right atrium. The curved obturator was placed through the sheath and using x-ray dye the os of the coronary sinus was identified. A guidewire was placed through the introducer into the coronary sinus and the Irving sheath was advanced into the coronary sinus. A balloon occlusion catheter was advanced through this sheath into the coronary sinus, the balloon was inflated and dye was injected in various projections to obtain a coronary sinus angiogram. A good vessel was identified and a 0.014 inch guidewire was advanced into this vessel. A quadripolar coronary sinus catheter was advanced over the guidewire into good distal position. The left ventricular pacing threshold was evaluated in various configurations, as recorded on the implant data sheet. Diaphragmatic pacing was evaluated at full output, as indicated on the data sheet. A 10.5 Filipino Med[employer] lead introducer was placed over the guidewire into the left subclavian vein, the dilator and guidewire were removed and a bipolar acti ve fixation steroid tipped ventricular ICD lead was advanced through the introducer into the superior vena cava. A guidewire was placed through the introducer and the introducer was stripped from the lead and guidewire. Using a curved stylette the ventricular lead was advanced through the right ventricular outflow tract into the pulmonary artery and then using a straight stylette was positioned in the right ventricular apex. The screw was extended fixing the lead in position. Pacing and sensing thresholds were evaluated in bipolar configuration and are recorded on the implant data sheet. Diaphragmatic pacing was evaluated at full bipolar output as indicated on the data sheet. A 7 Filipino lead introducer was placed over the guidewire into the left subclavian vein, the dilator and guidewire were removed and a bipolar active fixation steroid tipped atrial lead was advanced through the introducer into the superior vena cava. Using a curved stylette the atrial lead was positioned in the region of the atrial appendage and the screw extended fixing the lead in position. Pacing and sensing thresholds were evaluated in bipolar configuration and are recorded on the implant data sheet. Diaphragmatic pacing was evaluated at full bipolar output as indicated on the data sheet. Once the leads were in position they were attached to the anterior pectoralis fascia using 2 sutures of 2-0 silk around each lead collar. The original pacemaker incision was extended to a total of about 6 cm, it was carried down to the pacemaker generator which was dissected free of tissue and explanted. It was disconnected from the chronic leads and the chronic leads were capped. A vancomycin-soaked sponge was placed in the pocket. Hemostasis was obtained, the ICD was attached to the leads and placed in the pocket with the leads coiled beneath it after removing the vancomycin-soaked sponge. The incision was closed with a running double subcutaneous closure of 3-0 Vicryl absorbable suture, followed by running subcuticular skin closure of 4-0 Vicryl absorbable suture. Bacitracin ointment was placed on the incision and a pressure dressing applied. [facility] [place] Indication for Procedure (1) Cardiomyopathy: (2) LBBB (left bundle branch block): (3) Systolic congestive heart failure: Pacing Procedure 1: Pacin BiV electrode w/Pacer / ICD implant, add on code Procedure 2: Pacin Removal Pacer genererator ICD Procedure 1: ICD: 51911 Insert single or dual ICD system Miscellaneous Procedures Procedure 1: EP Miscellaneous: 73053 Contrast injection for venography Procedure 2: EP Miscellaneous: 94428-32 Vengraphy, extremity Procedure 3: EP Miscellaneous: 33056-44 Venography, CS supevsion/interp PG Moderate Sedation Codes Moderate Sedation Codes Procedure 1: Sedation/Anesthesia: 20357 Mod Sedation by the same physician;Init15 Min Child Age 5 & Up Procedure 2: Sedation/Anesthesia: 34805 Mod Sedation by the same physician; Ea [id number] Minutes
[2023-05-01] MEDS ORDERED: ACETAMINOPHEN 325 MG TAB PO PRN (16:44)
[2023-05-01] MEDS ORDERED: ACETAMINOPHEN W/CODEINE #3 1 TAB PO PRN (16:44)
--- NOTE | 2023-05-01 16:47 | Post Anesthesia Assessment ---
Date of Service May 01, 2023 Post Sedation Assessment Vital Signs Pulse Resp BP Pulse Ox O2 Del Method 05/01/23 16:26 60 16 129/87 97 Room Air 05/01/23 12:00 60 18 147/106 H 98 Room Air Recovery Score Activity: Moves 4 extremities Respiration: Deep Breath/Cough Circulation: +/-20% PreAnes Value Consciousness: Fully Awake Oxygen Saturation: > 92% On Room Air Post Anesthesia Score: 10 Discharge Sedation Level of Care: Fast Track Phase II Post Sedation Plan On clinical assessment, the patient appears to have tolerated the sedation without complications. Patient is recovering as anticipated. Patient will continue to be monitored by nursing and may be discharged when sedation discharge criteria are met per below protocol. Upon Completions of procedure up to 15 minutes continue every 5 minute vital signs and the P.A.R. score; then discharge to a Phase I or Fast Track to Phase II per the following guidelines: * Discharge Patient to appropriate Phase II area if PAR is 8 or greater or return to pre- procedure baseline. The post - procedure orders will be as directed. * If PAR score is less than 8 or not return to pre-procedure baseline then patient will follow Phase I monitoring till PAR is reached for Phase II. The Phase I may be done in procedure room or may call to secure a Phase I area. * If naloxone or flumazenil are used for reversal, hold in Phase I for continued monitoring from when last reversal dose was given for a minimum of 60 minutes or longer pending the nurse and/or physician discretion of patient condition before discharge to Phase II. Please call the Sedation Physician to re-evaluate and complete post-note for discharge to Phase II area. Do NOT discharge from procedure sedation or Phase 1 until post- sedation evaluation note is complete by procedure /sedation MD Sedation Discharge Instructions to be given to the patient at discharge to home.
[2023-05-01] MEDS: FLECAINIDE ACETATE 100 MG TABLET PO SCH (20:45)
[2023-05-01] MEDS: ATORVASTATIN 10 MG TAB PO SCH (20:45)
[2023-05-01] MEDS: LEVOTHYROXINE SODIUM 112 MCG TABLET PO SCH (20:46)
[2023-05-01] MEDS: VALSARTAN/SACUBITRIL 103/97MG TAB PO SCH (20:46)
[2023-05-01] MEDS: FAMOTIDINE 40 MG TABLET PO SCH (20:47)
[2023-05-01] MEDS: carvediloL 25 MG TAB PO SCH (20:47)
[2023-05-02 04:51] LABS: BUN Creatinine Ratio 14.9 (10-20); Calcium 8.4 mg/dl (8.6-10.3); Creatinine Clr Calc Pharmacy 40.3 ml/min; Est GFR (African American) 55.6 ml/min; Potassium 4.2 mmol/L (3.5-5.1)
--- NOTE | 2023-05-02 07:16 | XRay Report ---
TWO VIEW CHEST CLINICAL HISTORY: Pacemaker implantation. FINDINGS: PA and lateral chest radiographs are compared to study dated 05/24/2022. An atrial septal de vice is in place. A 3-lead cardiac AICD has been placed and partially obscures the left upper chest. Leads project over the right atrial appendage, the right ventricle, and coronary sinus. Additional le ads project over the chest. The heart is enlarged noting atherosclerotic calcification of the thoraci c aorta. The pulmonary vasculature is noncongested. Chronic interstitial thickening is similar to pre vious. There is bibasilar scarring/atelectasis. No airspace consolidation or pleural effusion is iden tified. There is no pneumothorax. The skeletal structures are osteopenic. The bony thorax appears int act. Degenerative change is noted in the shoulders and spine. IMPRESSION: 1. A 3-lead cardiac AICD has been implanted as above. No pneumothorax is identified post procedure. 2. Cardiomegaly without radiographic evidence of congestive failure. 3. No airspace consolidation or pleural effusion is identified. ACT 112: Negative or not required by law. Electronically signed by: Emanuel Cabrera M.D. 05/02/2023 7:15 AM
[2023-05-02] MEDS: allopurinoL 300 MG TAB PO SCH (09:03)
[2023-05-02] MEDS: ASPIRIN 81 MG ECTAB PO SCH (09:03)
[2023-05-02] MEDS: EMPAGLIFLOZIN 10 MG TAB PO SCH (09:04)
--- NOTE | 2023-05-02 09:36 | Cardiology Progress Note ---
Date of Service May 02, 2023 Assessment & Plan (1) Cardiomyopathy: (2) LBBB (left bundle branch block): (3) Systolic congestive heart failure: (4) Status post implantation of automatic cardioverter/defibrillator (AICD): Plan 1. Cardiomyopathy: Hopefully his cardiomyopathy will improve since we have good lead position and appropriate biventricular pacing. For the moment I am going to leave his medications alone but we may want to alter them in the future. 2. Left bundle branch block: This is pacemaker induced, now with biventricular pacing he still has an IVCD pattern but hopefully improved synchrony. 3. Congestive heart failure: He does not have current evidence of acute CHF, hopefully his symptoms will improve with biventricular pacing 4. Postop day #1: He is doing well postop, the site looks good, the device is working well and the leads are in good position on x-ray. Stable for discharge. Admission and Anticipated Discharge Date Admission Date: May 01, 2023 Subjective He is feeling well today, he has minimal incisional discomfort. In general he thinks he feels a little bit better than before. Physical Exam Physical Exam: The left-sided ICD incision is clean and dry with minimal blood on the bandage. No erythema or swelling. Cardiac rhythm is regular with no rub Lungs are clear Results & Data Vital Signs (Past 12 Hours) Vital Signs Temp Pulse Resp BP Pulse Ox O2 Del Method 05/02/23 07:20 36.3 C L 60 19 129/84 97 Room Air 05/02/23 03:51 36.4 C L 60 18 112/69 95 Room Air 05/02/23 00:30 36.7 C 60 18 101/52 L 94 Room Air Laboratory Results Comprehensive Metabolic Panel 05/02/23 Range/Units 04:08 Sodium 136 (136-145) mmol/L Potassium 4.2 (3.5-5.1) mmol/L Chloride 106 (98-107) mmol/L Carbon Dioxide 25 (21-32) mmol/L BUN 20 (6-23) mg/dl Creatinine 1.34 (0.6-1.4) mg/dl Glucose 110 H (70-99(Fasting)) mg/dl Calcium 8.4 L (8.6-10.3) mg/dl Intake and Output 05/01/23 05/02/23 05/02/23 22:59 06:59 14:59 Other: Other Intake Source SIPS SIPS # Unmeasured Voids 2 2 Weight 74 kg 74.1 kg Weight Measurement Method Standing Scale Diagnostic Findings Postop ECG: Appropriate biventricular pacing throughout Telemetry: Normal dual-chamber pacing throughout Chest x-ray: Good lead position, no pneumothorax ICD evaluation: Excellent pacing and sensing characteristics in all leads PG Care Time/CCT Total # of Minutes Spent Total Time Spent with Patient: Total time spent is greater than 50% in coordination of care (as documented) at patient's floor/unit and/or counseling patient: Coding Level of Care Code 66194 Post Operative Follow-Up Diagnoses 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
--- NOTE | 2023-05-02 09:40 | Discharge Summary ---
Date of Service May 02, 2023 Admission HPI Per Admitting Provider This is an 87-year-old gentleman with a history of hypertension, PVCs, coronary artery calcification as well as a history of sick sinus syndrome for which he had a dual-chamber pacemaker implanted on 01/21/03. Subsequently he had a replacement on 04/27/10 and again on September 14, 2020 using the original leads. More recently he has been pacing all of the time in the ventricle consistent with complete heart block as well. He had an echocardiogram performed on September 05, 2019. This showed normal left ventricular size and function with mild left ventricular hypertrophy and ejection fraction 60 to 65%. He did have mild mitral valve prolapse with moderate mitral regurgitation. He was identified as having atrial fibrillation on pacemaker monitoring and Eliquis was started on March 14, 2021. He remained in atrial fibrillation and an echocardiogram on April 13, 2021 showed normal left ventricular systolic function with mild concentric left ventricular hypertrophy. We therefore started flecainide 50 mg twice a day, he remained in atrial fibrillation on flecainide and cardioversion was performed on April 21, 2021 with scientologist of sinus rhythm. He did well for several months but then presented to the emergency room with rectal bleeding on June 13, 2021 and required several transfusions. He was transferred to [facility] where he remained overnight, he did not have any evaluation including a colonoscopy, I believe they were concerned about aggravating the bleeding. His Eliquis was discontinued at that time. He was referred to [facility] for consideration of a watchman procedure, that was performed on December 01, 2021. The procedure went well although he did have a hypercapnic event from which he recovered well. He did have an echocardiogram done November 29, 2021 prior to his Watchman procedure, it is noted that he had no wall motion abnormalities and ejection fraction estimated at 50 to 55%. (it was a QASIM). He was evaluated for exertional shortness of breath on March 02, 2022, he also had some atypical chest discomfort. With these findings a pharmacologic nuclear stress test was done on March 24, 2022. This was negative for ischemia with a large fixed inferior and inferoseptal perfusion defect. The ejection fraction was calculated at 12% but was not felt to be accurate. An echocardiogram done April 05, 2022 shows mild to moderate left ventricular dysfunction with ejection fraction 40 to 45% with regional wall motion abnormalities. The echocardiogram suggested paradoxical septal motion consistent with right ventricular pacing as well as apical anterior and lateral akinesis and apical inferior and septal dyskinesis. There is also mild left ventricular dilatation and mild mitral regurgitation with moderate tricuspid regurgitation. He had coronary calcific ation identified in the past and we had placed him on statin therapy and antiplatelet therapy once he had the watchman in place and was no longer on anticoagulation. These left ventricular findings appeared to be new and could explain his symptoms, there is also a possibility he has long COVID to explain his symptoms. With ischemia or prior myocardial infarction being a good possibility for his symptoms I arranged a catheterization which was done on May 25, 2022. The catheterization showed that his coronary arteries were normal and his filling pressures were also normal (at rest). It does not appear therefore that ischemia or congestive heart failure are cause of his symptoms although left ventricular dysfunction could explain some of his difficulty with exertion. We therefore attempted to optimize his medical therapy. An echocardiogram done November 07, 2022 shows mild left ventricular dilatation with moderate to severe left ventricular dysfunction and ejection fraction of 30 to 35%. A repeat echocardiogram to assess left ventricular function was done today, this demonstrated severe left ventricular dysfunction with an ejection fraction of 20 to 25%. He also had moderate concentric left ventricular hypertrophy. 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 Admission Exam (Per Admitting) Constitutional Constitutional: Alert, cooperative and in no distress. HEENT: Unremarkable Neck: No jugular venous distention, carotid pulses are normal and equal bilaterally without bruits. Pulmonary: Clear to auscultation bilaterally. Cardiac: Regular rhythm with no murmur, gallop or rub. Abdomen: Soft, nontender with normal bowel sounds. Extremities: No edema. Distal pulses intact. Neurologic: No focal findings. Gait is steady. Skin: The device site is well-healed without erythema, swelling or tenderness. No rash, ecchymoses or petechiae. Discharge Data Procedures Performed Operation Date: 05/01/23 13:00 Actual Procedures s Lead LV (No Priopr Implant) - Glenroy Lo MD p ICD Insertion Single or Dual - Glenroy Lo MD s ICD/Pacemaker Removal - Glenroy Lo MD s Venogram, Unilateral - Glenroy Lo MD Hospital Course (1) Cardiomyopathy: (2) LBBB (left bundle branch block): (3) Systolic congestive heart failure: (4) Status post implantation of automatic cardioverter/defibrillator (AICD): Plan 1. Cardiomyopathy: Hopefully his cardiomyopathy will improve since we have good lead position and appropriate biventricular pacing. For the moment I am going to leave his medications alone but we may want to alter them in the future. 2. Left bundle branch block: This is pacemaker induced, now with biventricular pacing he still has an IVCD pattern but hopefully improved synchrony. 3. Congestive heart failure: He does not have current evidence of acute CHF, hopefully his symptoms will improve with biventricular pacing 4. Postop day #1 (biventricular ICD implantation with all 3 leads, removal of pacemaker with capping of his old atrial and ventricular leads): He is doing well postop, the site looks good, the device is working well and the leads are in good position on x-ray. Stable for discharge. 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
--- NOTE | 2023-05-02 16:00 | Electrocardiogram Report ---
Test Reason : Blood Pressure : / mmHG Vent. Rate : 060 BPM Atrial Rate : 060 BPM P-R Int : 128 ms QRS Dur : 216 ms QT Int : 542 ms P-R-T Axes : 000 207 -32 degrees QTc Int : 542 ms AV dual-paced rhythm Biventricular pacemaker detected Abnormal ECG When compared with ECG of 24-MAY-2022 14:58, Vent. rate has decreased BY 23 BPM Confirmed by Jaden Merlos ([id number]) on 05/02/2023 4:00:08 PM Referred By: Glenroy Lo Confirmed By:Jaden Merlos
== END 2023-05-02 10:47 | disposition home or self-care (01) ==
LOC: EP 11:35 → INTOOBSV 14:45 → 4W 14:45
PROC: EPB.ICD (2023-05-01 13:00)